=== PATIENT | female | born 1950 | race Caucasian/White ===

== ENCOUNTER → 2020-09-04 09:43 | Outpatient (BNVA) | payer MEDICARE, SELFPAY | PROVIDERS: PCP Internal Medicine; Referring Provider Internal Medicine; Visit Provider Internal Medicine Endocrinology, Diabetes & Metabolism | DX: R73.03 Prediabetes (principal); E66.9 Obesity, unspecified; M85.80 Other specified disorders of bone density and structure, unspecified site; E83.52 Hypercalcemia; E55.9 Vitamin D deficiency, unspecified; E78.5 Hyperlipidemia, unspecified; Z79.84 Long term (current) use of oral hypoglycemic drugs; Z79.899 Other long term (current) drug therapy | CPT/HCPCS: 99212 ==

== ENCOUNTER 2020-10-09 12:12 | Outpatient (REF) | payer BC, SELFPAY ==
[2020-10-09 15:11] LABS: Influenza A PCR NEGATIVE (Negative); Influenza B PCR NEGATIVE (Negative); Resp Syncy Virus RNA Qual PCR NEGATIVE (Negative); SARS COV2 PCR INHOUSE NEGATIVE (Negative)
== END 2020-10-09 12:13 | disposition home or self-care (01) ==
LOC: HO.LAB 12:12
PROVIDERS: Visit Provider Hospitalist
DX: Z20.828 Contact with and (suspected) exposure to other viral communicable diseases (principal)
CPT/HCPCS: 0241U

== ENCOUNTER 2021-02-03 08:39 | Outpatient (REF) | payer BC, SELFPAY ==
--- NOTE | ~2021-02-03 | XR_ITS ---
EXAMINATION: LEFT FINGER. CERVICAL SPINE. CLINICAL INFORMATION: Pain. COMPARISON: None TECHNIQUE: 3 views left second finger. 3 view cervical spine. FINDINGS: LEFT SECOND FINGER: There is loss of joint space with moderate periapical spurring PIP joint second digit and mild loss of joint space PIP joint first digit with dorsal calcification consistent with osteoarthritic changes. There is mild flexion deformity at the DIP joint. No acute fracture or lytic process seen. CERVICAL SPINE: There is mild straightening of cervical lordosis. The vertebral heights and alignment is normal. There is loss of C3-C4, C5-C6 and C6-C7 disc heights. There is moderate ventral spondylosis at the C3-C4, C4-C5 and C5-C6 disc levels. No acute fracture or dislocation seen. No lytic process. XR/XR cervical spine 3V IMPRESSION: Severe osteoarthritic changes DIP joint and mild osteoarthritic changes PIP joint second digit. No acute fracture or dislocation. Mild flexion deformity DIP joint.
--- NOTE | ~2021-02-03 | XR_ITS ---
EXAMINATION: LEFT FINGER. CERVICAL SPINE. CLINICAL INFORMATION: Pain. COMPARISON: None TECHNIQUE: 3 views left second finger. 3 view cervical spine. FINDINGS: LEFT SECOND FINGER: There is loss of joint space with moderate periapical spurring PIP joint second digit and mild loss of joint space PIP joint first digit with dorsal calcification consistent with osteoarthritic changes. There is mild flexion deformity at the DIP joint. No acute fracture or lytic process seen. CERVICAL SPINE: There is mild straightening of cervical lordosis. The vertebral heights and alignment is normal. There is loss of C3-C4, C5-C6 and C6-C7 disc heights. There is moderate ventral spondylosis at the C3-C4, C4-C5 and C5-C6 disc levels. No acute fracture or dislocation seen. No lytic process. XR/XR finger LT min 2V IMPRESSION: Severe osteoarthritic changes DIP joint and mild osteoarthritic changes PIP joint second digit. No acute fracture or dislocation. Mild flexion deformity DIP joint.
== END 2021-02-03 08:40 | disposition home or self-care (01) ==
LOC: HO.HMGCX 08:39
PROVIDERS: PCP Internal Medicine; Visit Provider Internal Medicine
DX: M85.80 Other specified disorders of bone density and structure, unspecified site (principal); M54.2 Cervicalgia; M79.645 Pain in left finger(s)
CPT/HCPCS: 72040; 73140

== ENCOUNTER 2021-05-12 09:24 | Outpatient (REF) | payer MEDICARE, SELFPAY ==
[2021-05-12 11:25] LABS: MANUAL DIFF FLAG NO
[2021-05-12 11:40] LABS: Estimated Average Glucose 131 mg/dL; Hemoglobin A1c % 6.2 %
[2021-05-12 12:00] LABS: Basophils Percent Auto 0.6 % (0-2); Eosinophils Absolute Auto 0.3 X10*3/uL (0.0-0.4); Hematocrit 41.2 % (37-47); Hemoglobin 13.7 g/dl (12.0-16.0); Imm Gran Abs Auto 0.01 X10*3/uL (0.00-0.03); Imm Gran Pct Auto 0.2 % (0.0-0.4); Lymphocytes Absolute Auto 1.9 X10*3/uL (1.2-4.9); Lymphocytes Percent Auto 34.7 % (20-40); Mean Corpuscular HGB Conc 33.3 g/dl (31.0-35.0); Mean Corpuscular Hemoglobin 29.7 pg (27.0-33.0); Mean Corpuscular Volume 89.4 fL (80-98); Mean Platelet Volume 9.5 fL (9.4-12.3); Monocytes Absolute Auto 0.4 X10*3/uL (0.1-1.2); Monocytes Percent Auto 7.3 % (2-11); Neutrophils Absolute Auto 2.8 X10*3/uL (2.0-8.3); Neutrophils Percent Auto 51.2 % (45-73); Platelet Count 328 X10*3/uL (160-400); Red Blood Count 4.61 X10*6/uL (4.20-5.50); Red Cell Distribution Width 13.2 % (11.0-16.0); White Blood Count 5.4 X10*3/uL (4.8-10.8)
[2021-05-12 12:21] LABS: Alanine Aminotransferase 17 U/L (0-31); Albumin Level 3.9 g/dL (3.5-5.0); Alkaline Phosphatase 81 U/L (39-117); Anion Gap 13 (12-20); Aspartate Amino Transferase 20 U/L (5-31); Bilirubin Total 0.4 mg/dL (0.0-1.0); Blood Urea Nitrogen 13 mg/dL (9-16); Calcium 10.2 mg/dL (8.4-10.2); Carbon Dioxide 28 mmol/L (22-29); Chloride 104 mmol/L (96-108); Cholesterol 134 mg/dL; Estimated Glomerular Filt Rate > 60; Glucose Random 95 mg/dL (60-115); HDL Cholesterol 37 mg/dL; LDL Cholesterol Calculated 68 mg/dl; Potassium 4.8 mmol/L (3.3-5.1); Sodium 140 mmol/L (135-145); Total Protein 6.9 g/dL (6.5-8.0); Triglycerides 145 mg/dL
[2021-05-12 12:34] LABS: Thyroid Stimulating Hormone 4.98 uIU/mL (0.32-4.0); Vitamin D 25-OH Total 47.8 ng/mL (>30)
[2021-05-12 12:49] LABS: Folate 4.9 ng/mL (> or = 4.0); Vitamin B12 1021 pg/mL (200-900)
== END 2021-05-12 09:25 | disposition home or self-care (01) ==
LOC: HO.HMGCLDS 09:24
PROVIDERS: PCP Internal Medicine; Visit Provider Internal Medicine
DX: E03.9 Hypothyroidism, unspecified (principal); R73.02 Impaired glucose tolerance (oral); E78.00 Pure hypercholesterolemia, unspecified; M85.89 Other specified disorders of bone density and structure, multiple sites
CPT/HCPCS: 36415; 80053; 80061; 82306; 82607; 82746; 83036; 84439; 84443; 85025

== ENCOUNTER 2021-09-02 13:09 | Outpatient (REF) | payer MEDICARE, SELFPAY ==
--- NOTE | ~2021-09-02 | MM_ITS ---
EXAMINATION: MM SCREENING DIGITAL BREAST TOMOSYNTHESIS, BILATERAL CLINICAL INFORMATION: Screening. Asymptomatic. The lifetime risk of breast cancer based on the Tyrer-Cuzick Model is 4.5%. COMPARISON: Mammography: 01/28/2019 and studies dating back to 12/02/2013. TECHNIQUE: Digital breast tomosynthesis is performed in both the craniocaudal and mediolateral oblique views along with computer-aided detection (CAD). Synthesized 2D images are generated from the tomosynthesis. FINDINGS: There are scattered areas of fibroglandular density (ACR BI-RADS breast composition Category b). There is a stable parenchymal pattern within the right breast without new abnormal dominant mass or suspicious grouping of microcalcifications. On mediolateral oblique projection along nipple line there is an irregular density which appears more posterior to a region of dense tissue that had been there. Recommended mediolateral oblique spot compression view as well as 90 degree mediolateral view left breast. MM/MM tomosynthesis screening BI IMPRESSION: Region of irregular density left breast for further evaluation as described above. ASSESSMENT: BI-RADS 0: Incomplete - Need Additional Imaging Evaluation RECOMMENDATION: 1. Additional views of the left breast. 2. Targeted ultrasound if warranted after review of the additional views. 3. Radiology department staff will contact the patient for additional imaging. This patient's information was entered into a reminder system with a target due date for their next mammogram.
== END 2021-09-02 13:10 | disposition home or self-care (01) ==
LOC: HO.MAMMO 13:09
PROVIDERS: PCP Internal Medicine; Visit Provider Internal Medicine
DX: Z12.31 Encounter for screening mammogram for malignant neoplasm of breast (principal)
CPT/HCPCS: 77063; 77067

== ENCOUNTER 2021-09-13 14:18 | Outpatient (REF) | payer MEDICARE, SELFPAY ==
--- NOTE | ~2021-09-13 | MM_ITS ---
EXAMINATION: MM DIAGNOSTIC DIGITAL BREAST TOMOSYNTHESIS, LEFT CLINICAL INFORMATION: Recall from screening for asymmetric density left MLO 2-D synthesized image along posterior nipple line within 5 cm of nipple. COMPARISON: Mammography: 09/02/2021, 01/28/2019 TECHNIQUE: Digital breast tomosynthesis is performed. 2D images are generated from the tomosynthesis. The following views are obtained: Spot MLO, standard ML. FINDINGS: There are scattered areas of fibroglandular density (ACR BI-RADS breast composition Category b). The additional views show no underlying mass or architectural abnormality or interval developing density in the area of recent imaging concern. The asymmetric density at screening on synthesized MLO view shows no correlate on either the screening CC projection or on the MLO tomography. Finding is consistent with summation artifact. Results are discussed with the patient at time of visit. MM/MM tomosynthesis added views L IMPRESSION: Additional views show no developing density or interval mass or architectural abnormality in the area of recent imaging concern. Finding on recent synthesized screening image is consistent with summation artifact. ASSESSMENT: BI-RADS 1: Negative RECOMMENDATION: Routine annual mammography screening. This patient's information was entered into a reminder system with a target due date for their next mammogram.
== END 2021-09-13 14:19 | disposition home or self-care (01) ==
LOC: HO.MAMMO 14:18
PROVIDERS: Visit Provider Internal Medicine
DX: R92.2 Inconclusive mammogram (principal)
CPT/HCPCS: 77061; 77065

== ENCOUNTER 2021-10-20 13:54 | Outpatient (REF) | payer MEDICARE, SELFPAY ==
[2021-10-20 17:50] LABS: Free T4 (Free Thyroxine) 1.36 ng/dL (0.71-1.85); Thyroid Stimulating Hormone 1.14 uIU/mL (0.32-4.0)
== END 2021-10-20 13:55 | disposition home or self-care (01) ==
LOC: HO.HMGCLDS 13:54
PROVIDERS: PCP Internal Medicine; Visit Provider Internal Medicine
DX: E03.9 Hypothyroidism, unspecified (principal)
CPT/HCPCS: 36415; 84439; 84443

== ENCOUNTER 2021-11-19 10:40 | Outpatient (REF) | payer MEDICARE, SELFPAY ==
--- NOTE | ~2021-11-19 | MM_ITS ---
EXAMINATION: BONE DENSITOMETRY CLINICAL INDICATION: Osteopenia. COMPARISON: Previous BD dated 09/10/2019 and baseline BD dated 12/27/2013. TECHNIQUE: Using a [employer] DXA System (software version: 13.1) manufactured by [employer], dual-energy x-ray absorptiometry was performed of the lumbar spine and left hip. The images are of good technical quality. Summary results are attached. FINDINGS: AP SPINE L1-L2 (excluding L3 and L4): The data of L1-L4 has been changed to exclude the L3 and L4 vertebral bodies, because significant degenerative change at these levels may cause overestimation of lumbar spine density. Current: BMD 1.207 g/cm2, Z-score 1.6, T-score 0.4, normal, 4.4% decrease from previous, 2.5% increase from baseline (<5% change is not significant). Prior: BMD 1.263 g/cm2. Baseline: BMD 1.178 g/cm2. LEFT FEMUR, NECK: Current: BMD 0.835 g/cm2, Z-score 0.0, T-score -1.5, osteopenia. Prior: BMD 0.852 g/cm2. Baseline: BMD 0.877 g/cm2. LEFT FEMUR, TOTAL: Current: BMD 1.075 g/cm2, Z-score 1.7, T-score 0.5, normal, 1.5% decrease from previous, 4.0% decrease from baseline (<5% change is not significant). Prior: BMD 1.091 g/cm2. Baseline: BMD 1.120 g/cm2. IDENTIFIED RISK FACTORS: Early menopause, family history (parent hip fracture), secondary osteoporosis. HISTORY OF FRACTURE: None listed. MEDICATIONS: Calcium, vitamin D. MM/XR DEXA axial skeleton IMPRESSION: 1. DIAGNOSIS: Osteopenia based on the lowest T-score value of -1.5 in the femoral neck applying World Health Organization criteria. 2. 10-YEAR FRACTURE RISK PREDICTION, FRAX: Major osteoporotic fracture (clinical spine, forearm, hip or shoulder) 15.0%. Hip fracture 3.8%. 3. Treatment Recommendations: NOF guidelines recommend consideration for treatment in postmenopausal women and men age 50 and older presenting with the following: -A hip or vertebral (clinical or morphometric) fracture. -T-score less than or equal to -2.5 at the femoral neck or spine after appropriate evaluation to exclude secondary causes. -Low bone mass at the hip or spine and a 10-year fracture probability by FRAX of greater than or equal to 3% for hip fracture or greater than or equal to 20% for major osteoporotic fracture based on the [place] adapted WHO algorithm. 4. Other Recommendations: All treatment decisions require clinical judgment and consideration of individual patient factors, including patient preferences, comorbidities, previous drug use, risk factors not captured in the FRAX model (e.g. frailty, falls, vitamin D deficiency, increased bone turnover, interval significant decline in bone density) and possible under or overestimation of fracture risk by FRAX. Additional medical evaluation for secondary cause of low bone mineral density may be appropriate. FUTURE SCAN RECOMMENDATION: People with diagnosed cases of osteoporosis or at high risk for fracture should have regular bone mineral density tests. For patients eligible for Medicare, routine testing is allowed once every 2 years. The testing frequency can be increased to one year for patients who have rapidly progressing disease, those who are receiving or discontinuing medical therapy to restore bone mass, or have additional risk factors.
== END 2021-11-19 10:41 | disposition home or self-care (01) ==
LOC: HO.MAMMO 10:40
PROVIDERS: Visit Provider Internal Medicine
DX: Z78.0 Asymptomatic menopausal state (principal); M85.89 Other specified disorders of bone density and structure, multiple sites
CPT/HCPCS: 77080

== ENCOUNTER 2022-03-18 10:57 | Outpatient (REF) | payer MEDICARE, SELFPAY ==
[2022-03-18 11:25] LABS: COVID-19 Test Positive (Negative)
== END 2022-03-18 10:58 | disposition home or self-care (01) ==
LOC: HO.LAB 10:57
PROVIDERS: Visit Provider Internal Medicine
DX: Z20.822 Contact with and (suspected) exposure to COVID-19 (principal)
CPT/HCPCS: 87635; C9803

== ENCOUNTER 2022-04-05 12:54 | Outpatient (REF) | payer MEDICARE, SELFPAY ==
[2022-04-05 13:38] LABS: COVID-19 Test Negative (Negative)
== END 2022-04-05 12:55 | disposition home or self-care (01) ==
LOC: HO.LAB 12:54
PROVIDERS: Visit Provider Internal Medicine
DX: Z20.822 Contact with and (suspected) exposure to COVID-19 (principal)
CPT/HCPCS: 87635; C9803

== ENCOUNTER 2022-04-22 08:50 | Outpatient (REF) | payer MEDICARE, SELFPAY ==
[2022-04-22 09:09] LABS: MANUAL DIFF FLAG NO
[2022-04-22 10:32] LABS: Basophils Percent Auto 0.7 % (0-2); Eosinophils Absolute Auto 0.3 X10*3/uL (0.0-0.4); Eosinophils Percent Auto 5.5 % (0-4); Hematocrit 40.1 % (37.0-47.0); Hemoglobin 13.3 g/dl (12.0-16.0); Imm Gran Abs Auto 0.02 X10*3/uL (0.00-0.03); Imm Gran Pct Auto 0.3 % (0.0-0.4); Lymphocytes Absolute Auto 1.6 X10*3/uL (1.2-4.9); Lymphocytes Percent Auto 27.6 % (20-40); Mean Corpuscular HGB Conc 33.2 g/dl (31.0-35.0); Mean Corpuscular Hemoglobin 29.7 pg (27.0-33.0); Mean Corpuscular Volume 89.5 fL (80.0-98.0); Mean Platelet Volume 9.6 fL (9.4-12.3); Monocytes Absolute Auto 0.6 X10*3/uL (0.1-1.2); Monocytes Percent Auto 9.7 % (2-11); Neutrophils Absolute Auto 3.3 x10*3/uL (2.0-8.3); Neutrophils Percent Auto 56.2 % (45-73); Platelet Count 358 X10*3/uL (160-400); Red Blood Count 4.48 X10*6/uL (4.20-5.50); Red Cell Distribution Width 13.3 % (11.0-16.0); White Blood Count 5.8 X10*3/uL (4.8-10.8)
[2022-04-22 10:36] LABS: Estimated Average Glucose 126 mg/dL
[2022-04-22 11:02] LABS: Alanine Aminotransferase 16 U/L (0-31); Alkaline Phosphatase 81 U/L (39-117); Anion Gap 11 (12-20); Aspartate Amino Transferase 19 U/L (5-31); Bilirubin Total 0.4 mg/dL (0.0-1.0); Blood Urea Nitrogen 15 mg/dL (9-16); Calcium 9.5 mg/dL (8.4-10.2); Carbon Dioxide 29 mmol/L (22-29); Chloride 104 mmol/L (96-108); Cholesterol 151 mg/dL; Estimated Glomerular Filt Rate > 60; Glucose Random 110 mg/dL (60-115); HDL Cholesterol 35 mg/dL; LDL Cholesterol Calculated 84 mg/dl; Potassium 4.9 mmol/L (3.3-5.1); Sodium 139 mmol/L (135-145); Triglycerides 163 mg/dL
[2022-04-22 11:27] LABS: Free T4 (Free Thyroxine) 1.22 ng/dL (0.71-1.85); Thyroid Stimulating Hormone 2.86 uIU/mL (0.32-4.0); Vitamin D 25-OH Total 49.2 ng/mL (>30)
[2022-04-22 11:31] LABS: Folate 6.6 ng/mL (> or = 4.0); Vitamin B12 1122 pg/mL (200-900)
== END 2022-04-22 08:51 | disposition home or self-care (01) ==
LOC: HO.LAB 08:50
PROVIDERS: PCP Internal Medicine; Visit Provider Internal Medicine
DX: E78.00 Pure hypercholesterolemia, unspecified (principal); R73.02 Impaired glucose tolerance (oral); M81.0 Age-related osteoporosis without current pathological fracture
CPT/HCPCS: 36415; 80053; 80061; 82306; 82607; 82746; 83036; 84439; 84443; 85025

== ENCOUNTER 2022-05-04 08:36 | Outpatient (REF) | payer MEDICARE, SELFPAY ==
--- NOTE | ~2022-05-04 | XR_ITS ---
EXAMINATION: XR CHEST CLINICAL INFORMATION: Cough. COMPARISON: Chest 12/23/2019 TECHNIQUE: 2 views of the chest were obtained. FINDINGS: The lungs are well-expanded and clear. Heart size and pulmonary vascularity is normal. There is moderate spondylosis dorsal spine. No lytic process. XR/XR chest 2V IMPRESSION: Unremarkable chest examination.
== END 2022-05-04 08:37 | disposition home or self-care (01) ==
LOC: HO.XRAY 08:36
PROVIDERS: PCP Internal Medicine; Visit Provider Internal Medicine
DX: R05.9 Cough, unspecified (principal)
CPT/HCPCS: 71046

== ENCOUNTER → 2022-05-10 10:36 | Outpatient (BNVA) | payer MEDICARE, SELFPAY | PROVIDERS: PCP Internal Medicine; Visit Provider Internal Medicine Endocrinology, Diabetes & Metabolism | DX: R73.02 Impaired glucose tolerance (oral) (principal); E66.9 Obesity, unspecified; Z68.32 Body mass index [BMI] 32.0-32.9, adult; Z79.84 Long term (current) use of oral hypoglycemic drugs | CPT/HCPCS: 99212 ==

== ENCOUNTER 2022-09-02 13:37 | Outpatient (REF) | payer MEDICARE, SELFPAY ==
--- NOTE | 2022-09-02 14:55 | PFT_ITS ---
Patient was referred for pulmonary function test. In spite of directions and repeated efforts, patient was not able to perform the pulmonary function test. MD MARK Cortes/ORALIA / [phone]
== END 2022-09-02 13:38 | disposition home or self-care (01) ==
LOC: HO.RESP 13:37
PROVIDERS: PCP Internal Medicine; Visit Provider Nurse Practitioner Family
DX: Z13.89 Encounter for screening for other disorder (principal)

== ENCOUNTER 2022-09-05 14:35 | Outpatient (REF) | payer MEDICARE, SELFPAY ==
--- NOTE | ~2022-09-05 | MM_ITS ---
EXAMINATION: MM SCREENING DIGITAL BREAST TOMOSYNTHESIS, BILATERAL CLINICAL INFORMATION: Screening. Asymptomatic. The lifetime risk of breast cancer based on the Tyrer-Cuzick Model is 4%. COMPARISON: Mammography: 09/13/2021, 08/13/2021, 01/28/2019, 01/24/2018 TECHNIQUE: Digital breast tomosynthesis is performed in both the craniocaudal and mediolateral oblique views along with computer-aided detection (CAD). Synthesized 2D images are generated from the tomosynthesis. FINDINGS: There are scattered areas of fibroglandular density (ACR BI-RADS breast composition Category b). There are no significant masses, abnormal calcifications, or other abnormalities. Parenchymal pattern is similar to prior studies and there is no developing density or interval architectural abnormality. There are scattered benign round and predominantly dermal calcifications again seen. The axilla and skin contours are unremarkable. MM/MM tomosynthesis screening BI IMPRESSION: No mammographic evidence of malignancy. ASSESSMENT: BI-RADS 2: Benign RECOMMENDATION: Routine annual mammography screening. This patient's information was entered into a reminder system with a target due date for their next mammogram.
== END 2022-09-05 14:36 | disposition home or self-care (01) ==
LOC: HO.MAMMO 14:35
PROVIDERS: Visit Provider Internal Medicine
DX: Z12.31 Encounter for screening mammogram for malignant neoplasm of breast (principal)
CPT/HCPCS: 77063; 77067

== ENCOUNTER 2022-09-21 09:59 | Emergency (ER) | payer MEDICARE, SELFPAY ==
[2022-09-21 10:12] VITALS: BP 164/74; BP 172/80; PULSE 73; PULSE 78; RESP 16; TEMP 36.8; O2SAT 98; BMI 33.9
--- NOTE | 2022-09-21 11:35 | ED_ITS ---
HPI - Fall General Chief Complaint: Fall Stated Complaint: FALL W/JUSTUS KNEE PAIN PER EMS Source: patient Mode of arrival: EMS Limitations: no limitations History of Present Illness HPI Narrative: 72-year-old female who presents emergency department for evaluation of a fall that occurred from a standing position. The patient states that she was at [facility] getting a cup coffee. She states she then suddenly fell landing on her knees. She denied any other injury. She states that when the paramedics arrived she was able to stand and walk to the [facility]. She is currently complaining and set pain in both of her knees which she states is mild in intensity. The patient denied being ill in any way prior to the fall. She states that she does have chronic rhinorrhea, cough and chest pain from a COVID-19 infection from March of 2022. She denied dysuria. She denied dark tarry stools or black stools. MD complaint: fall Onset (ago): hour(s) (30) Fall from: standing Fall witnessed: yes, by bystander Place fall occurred: other ([facility]) Loss of consciousness: none Prolonged down time: no Symptoms prior to fall: none Location of injury: other (Bilateral knees) Severity: moderate Quality: throbbing Associated symptoms (after fall): denies Related Data Home Medications Medication Instructions Recorded Confirmed lancets 30 gauge #100 ea 20 08/09/22 Previous Rx's Medication Instructions Recorded omeprazole 20 mg capsule,delayed 20 mg PO DAILY #90 caps 10/05/20 release OneTouch Ultra Blue Test Strip #100 ea 03/22/21 (blood sugar diagnostic) alprazolam 0.25 mg tablet 0.25 mg PO DAILY PRN anxiety 90 04/22/21 days #90 tabs fexofenadine 180 mg tablet 180 mg PO DAILY #90 tabs 04/22/21 (Milana Allergy) cholecalciferol (vitamin D3) 50 50 mcg PO DAILY #90 tabs 01/17/22 mcg (2,000 unit) tablet lancets 30 gauge (OneTouch Delica #100 ea 03/04/22 Lancets) blood sugar diagnostic (OneTouch #100 ea 04/25/22 Ultra Test strips) calcium carbonate 600 mg-vitamin 1 tab PO DAILY #90 tabs 05/02/22 D3 5 mcg (200 unit) tablet levothyroxine 125 mcg tablet 125 mcg PO QAM #90 tabs 05/02/22 (Euthyrox) atorvastatin 40 mg tablet 40 mg PO DAILY #90 tabs 06/28/22 metformin 500 mg tablet 500 mg PO BID #180 tabs 06/28/22 albuterol sulfate 90 mcg/actuation 2 puff inhalation Q4-6H PRN 08/19/22 aerosol inhaler (ProAir HFA) shortness of breath or wheezing #8.5 grams meloxicam 15 mg tablet 15 mg PO DAILY #90 tabs 08/30/22 benzonatate 100 mg capsule 100 mg PO BID PRN cough #20 caps 09/09/22 Allergies Allergy/AdvReac Type Severity Reaction Status Date / Time No Known Allergies Allergy Verified 08/09/22 09:00 [No Known Allergies*] Review of Systems Review of Systems: Yes all other systems are reviewed and are negative [facility] Past Medical History [facility] Narrative: Okay social history: The patient denies tobacco, alcohol and drug use. She states she lives home alone with her 2 cats, Keshav and Reece. Medical History Anxiety Barretts esophagus Finger pain, left Hiatal hernia Hypercholesterolemia Hypothyroidism Impaired glucose tolerance Nasal bone fracture Obesity (BMI 30-39.9) Osteopenia Urge incontinence Vitamin D deficiency Surgical History History of bladder surgery Hx of cholecystectomy Hx of foot surgery Family History Family History Father No problems noted. Mother No problems noted. Paternal Grandmother Diabetes mellitus Social History Social History Housing: Apartment Alcohol intake: never Patient Tobacco Use Status: Former Tobacco user Tobacco use type: Cigarette Years Smoked: quit 2019 Smoked in Last 30 Days: No e-Cigarette/Vaping Use: Never Used Second Hand Smoke Exposure: No Use of substances other than those prescribed or required for medical reasons: No Advance Directives: No service: No Current occupational status: disabled Cognitive needs: No Hearing needs: Yes (hearing aids) Vision needs: Yes (glasses ) Physical Exam Vital Signs: Vital Signs: Last Vital Signs Temp 98.2 F 09/21/22 10:12 Pulse 73 09/21/22 10:12 Resp 16 09/21/22 10:12 BP 164/74 H 09/21/22 10:12 Pulse Ox 98 09/21/22 10:12 O2 Del Method 09/21/22 10:12 BMI result Body Mass Index 33.9 Const: General: cooperative and no acute distress Orientation/consciousness: oriented to person and oriented to place Limitations: no limitations HEENT: Head: Yes normal to inspection, Yes normocephalic and Yes atraumatic Ears: external ears normal General nose exam: Normal external nose present Face and sinus: Yes normal facial exam Mouth: Normal oral and palatal mucosa present Throat: Yes posterior oropharynx normal Eyes: General: appearance normal, both eyes and all related structures Pupils: Equal, round and reactive pupils present Neck: Neck: Yes normal visual inspection, Yes no lymphadenopathy, Yes trachea midline and Yes supple Chest: Chest palpation & inspection: normal inspection of the chest and normal palpation of entire chest wall Resp: Effort & Inspection: normal respiratory effort and able to speak in complete sentences Auscultation: clear to auscultation bilaterally Cardio: Rate: regular rate Rhythm: regular rhythm Heart sounds: S1 normal heart sound present, S2 normal heart sound present and no murmurs GI: Inspection: Yes normal to inspection Palpation (GI): Soft to palpation, nontender and no guarding Auscultation: normal bowel sounds : General: Yes no CVA tenderness Back/Spine/Pelvis: Back: no CVA tenderness Skin: General skin exam: no rashes or lesions noted Neuro: General: oriented to person and oriented to place Cranial nerves: Yes CN's II-XII intact bilaterally and Yes Equal, round and reactive pupils present Cognition (Neuro): normal cognition Motor exam (neuro): 5/5 motor strength present throughout Extrem: Other: There is no significant ecchymosis or soft tissue swelling of her knees or lower extremities. She does have a very small abrasion to the right knee. She has full range of motion without limitations. Patient was able to stand and walk in the emergency department without assistance and with no significant pain. Psych: Appearance: grossly normal Speech and movement: Normal speech and movement present Affect: normal affect Attitude: cooperative Thought process: Normal thought process present Thought content: Normal thought content present Course Course Course Narrative: 72-year-old female who presents emergency department for evaluation of a fall that occurred a standing position. Patient landed on her knees and reported no other injury. On examination she has a small abrasion to her right knee and has full range of motion both her lower extremities. She was able to walk without any difficulty. Given these exam findings, I do not think that she needs x-rays at this time. Patient's right knee abrasion was cleaned and dressed with bacitracin and a Band-Aid. Patient was discharged home with printed and verbal instructions. Discharge Plan Discharge Clinical Impression: Fall Qualifiers: Encounter type: initial encounter Qualified Code(s): W19.XXXA - Unspecified fall, initial encounter Contusion of knee, left Qualifiers: Encounter type: initial encounter Qualified Code(s): S80.02XA - Contusion of left knee, initial encounter Contusion of knee, right Qualifiers: Encounter type: initial encounter Qualified Code(s): S80.01XA - Contusion of right knee, initial encounter Abrasion of knee, right Qualifiers: Encounter type: initial encounter Qualified Code(s): S80.211A - Abrasion, right knee, initial encounter Patient Disposition: Home, Self-Care Instructions: Abrasion (ED), Contusion in Adults (ED) Additional Instructions: Apply bacitracin twice a day to the abrasions/cut to your right knee. Do this for 1 week. Take Tylenol (acetaminophen) 500 mg pills, 2 pills every 4 to 6 hours as needed for pain. Follow-up with your doctor in 2 days. Please return to the emergency department if your symptoms get worse or if you develop any symptoms that are concerning to you. Prescriptions: No Action omeprazole 20 mg capsule,delayed release(DR/EC) 20 mg PO DAILY Qty: 90 2RF (DME) OneTouch Ultra Blue Test Strip Strip See Rx Instructions .ROUTE .MEDSUPPLY Qty: 100 5RF Rx Instructions: once a day cholecalciferol (vitamin D3) 50 mcg (2,000 unit) tablet 50 mcg PO DAILY Qty: 90 3RF (DME) lancets [OneTouch Delica Lancets] 30 gauge misc See Rx Instructions .Route Qty: 100 5RF Rx Instructions: Test blood sugar twice a day (DME) OneTouch Ultra Test Strip See Rx Instructions .Route Qty: 100 5RF Rx Instructions: tests 3X/day levothyroxine [Euthyrox] 125 mcg tablet 125 mcg PO QAM Qty: 90 2RF calcium carbonate-vitamin D3 600 mg-5 mcg (200 unit) tablet 1 tab PO DAILY Qty: 90 3RF atorvastatin 40 mg tablet 40 mg PO DAILY Qty: 90 2RF metformin 500 mg tablet 500 mg PO BID Qty: 180 2RF albuterol sulfate [ProAir HFA] 90 mcg/actuation HFA aerosol inhaler 2 puff inhalation Q4-6H PRN (Reason: shortness of breath or wheezing) Qty: 8.5 0RF meloxicam 15 mg tablet 15 mg PO DAILY Qty: 90 2RF benzonatate 100 mg capsule 100 mg PO BID PRN (Reason: cough) Qty: 20 0RF fexofenadine [Milana Allergy] 180 mg tablet 180 mg PO DAILY Qty: 90 3RF alprazolam 0.25 mg tablet 0.25 mg PO DAILY PRN (Reason: anxiety) 90 Days Qty: 90 1RF (DME) lancets 30 gauge misc See Rx Instructions .ROUTE .MEDSUPPLY Qty: 100 Rx Instructions: As directed
[2022-09-21] MEDS: Bacitracin Oint 14 GM TUBE 1 APPL TOPICAL (11:54)
[2022-09-21 12:03] VITALS: BP 153/72; PULSE 83; RESP 12; TEMP 37.1; O2SAT 98
== END 2022-09-21 12:11 | disposition home or self-care (01) ==
PROVIDERS: Emergency Provider Emergency Medicine Emergency Medical Services; PCP Internal Medicine
DX: S80.02XA Contusion of left knee, initial encounter (principal); S80.01XA Contusion of right knee, initial encounter; S80.211A Abrasion, right knee, initial encounter; W18.30XA Fall on same level, unspecified, initial encounter; Y93.89 Activity, other specified; Y92.29 Other specified public building as the place of occurrence of the external cause; Y99.9 Unspecified external cause status; Z87.891 Personal history of nicotine dependence
CPT/HCPCS: 99283; 99284

== ENCOUNTER 2022-12-30 10:00 | Outpatient (RCR) | payer MEDICARE, SELFPAY ==
--- NOTE | 2022-11-25 15:33 | MHC.PT.EP ---
[facility] Office [place] Office [place] Office [address] [phone] F: [phone] F: [phone] F: [phone] F: [phone] Physical Therapy Plan of Care Date of Evaluation: Date of Surgery: Diagnosis: unsteadiness on feet Assessment: Pt is a 72 y/o female referred to PT for eval and treat of unsteadiness on her feet which Pt reports has resulted in 3 falls in the past year secondary to decreased B LE strength, decreased balance, and gait abnormality. Pt is deemed an appropriate candidate to receive skilled PT services to address their physical impairments in order to improve their functional ability. Frequency and Duration: The patient will be seen 2x/ wk x 4 wks Short Term Goals: Initiate HEP. Pt will trial senior balance class at her [facility]; she is already engaged in exercise program there. Usp Goals: I with home program. Improve B knee extension MMT by at least 1/2 MMT; initial 4/5 decondition. Improve B hip abd MMT by at least 1/2 MMT: initial: 4/5 B. Improve DGI (dynamic gait index) by at least 4 points in order to demonstrate improved risk of falls. Treatment Plan: Modalities to reduce pain, spasms and effusion. Manual therapy to restore motion and function. Therapeutic exercise to improve strength and flexibility. Neuromuscular re-education for posture and balance. Therapeutic activities to return to functional activities of daily living. Electronically signed by: Cornelius Littlejohn PT. Please sign and return to therapist. Thank you for your referral.
--- NOTE | 2022-12-30 16:24 | MHC.PT.DC ---
[facility] [place] Office [place] Office [place] Office [address] [facility] [phone] F: [phone] F: [phone] F: [phone] F: [phone] Physical Therapy Discharge Report Diagnosis: unsteadiness on feet Date of Surgery: Date of Evaluation: 11/25/22 Date of Discharge: 12/30/22 Treatments to Date: 8 Cancellations to Date: No Shows to Date: Discharge Status: Achieved Goals Improved Function Independent with HEP Discharge Summary: Samara has been an active and motivated participant in her therapy in the clinic with inconsistent home program compliance. She has met her reasonable therapeutic goals and is I with a home program and is encouraged to continue exercise at the senior [facility] and consider the balance class. Electronically signed by: Cornelius Littlejohn PT. Please sign and return to therapist. Thank you for your referral.
== END 2022-12-30 16:23 | disposition home or self-care (01) ==
LOC: HO.PTCHIC 10:00
PROVIDERS: PCP Internal Medicine; Visit Provider Internal Medicine
DX: R26.81 Unsteadiness on feet (principal)
CPT/HCPCS: 97110; 97112; 97162

== ENCOUNTER 2023-01-11 13:39 | Outpatient (REF) | payer MEDICARE, SELFPAY ==
[2023-01-11 14:52] LABS: MANUAL DIFF FLAG NO
[2023-01-11 14:58] LABS: Basophils Percent Auto 0.4 % (0-2); Eosinophils Absolute Auto 0.5 X10*3/uL (0.0-0.4); Eosinophils Percent Auto 6.4 % (0-4); Hematocrit 38.9 % (37.0-47.0); Hemoglobin 12.9 g/dl (12.0-16.0); Imm Gran Abs Auto 0.03 X10*3/uL (0.00-0.03); Imm Gran Pct Auto 0.4 % (0.0-0.4); Lymphocytes Absolute Auto 2.3 X10*3/uL (1.2-4.9); Lymphocytes Percent Auto 33.1 % (20-40); Mean Corpuscular HGB Conc 33.2 g/dl (31.0-35.0); Mean Corpuscular Hemoglobin 30.5 pg (27.0-33.0); Mean Platelet Volume 9.2 fL (9.4-12.3); Monocytes Absolute Auto 0.6 X10*3/uL (0.1-1.2); Monocytes Percent Auto 8.8 % (2-11); Neutrophils Absolute Auto 3.6 x10*3/uL (2.0-8.3); Neutrophils Percent Auto 50.9 % (45-73); Platelet Count 332 X10*3/uL (160-400); Red Blood Count 4.23 X10*6/uL (4.20-5.50)
== END 2023-01-11 13:40 | disposition home or self-care (01) ==
LOC: HO.LAB 13:39
PROVIDERS: PCP Internal Medicine; Visit Provider Internal Medicine
DX: R05.3 Chronic cough (principal); J30.9 Allergic rhinitis, unspecified
CPT/HCPCS: 36415; 85025; 94010; 99202

== ENCOUNTER 2023-02-24 10:37 | Emergency (ER) | payer MEDICARE, SELFPAY ==
--- NOTE | ~2023-02-24 | XR_ITS ---
EXAMINATION: XR CHEST CLINICAL INFORMATION: Chest/epigastric pain COMPARISON: 05/04/2022 TECHNIQUE: Frontal view of the chest was obtained. FINDINGS: The lungs are well expanded. There is no focal consolidation, edema, or effusion. No pneumothorax. The cardiomediastinal silhouette is within normal limits. No acute osseous abnormality. XR/XR chest 1V IMPRESSION: No acute pulmonary disease.
[2023-02-24 10:39] VITALS: BP 163/72; PULSE 86; RESP 18; TEMP 36.7; O2SAT 98; BMI 32.1
--- NOTE | 2023-02-24 10:41 | ECG_ITS ---
Test Reason : cp Blood Pressure : / mmHG Vent. Rate : 072 BPM Atrial Rate : 072 BPM P-R Int : 182 ms QRS Dur : 076 ms QT Int : 376 ms P-R-T Axes : 045 -10 018 degrees QTc Int : 411 ms Sinus rhythm Premature atrial complexes Abnormal ECG No previous ECGs available Referred By: Generic ED Physician Electronically Signed By:NGOC PACK
[2023-02-24 11:12] LABS: MANUAL DIFF FLAG NO
[2023-02-24 11:13] LABS: Basophils Percent Auto 0.6 % (0-2); Eosinophils Absolute Auto 0.3 X10*3/uL (0.0-0.4); Eosinophils Percent Auto 5.1 % (0-4); Hematocrit 39.3 % (37.0-47.0); Hemoglobin 13.2 g/dl (12.0-16.0); Imm Gran Abs Auto 0.01 X10*3/uL (0.00-0.03); Imm Gran Pct Auto 0.2 % (0.0-0.4); Lymphocytes Absolute Auto 1.6 X10*3/uL (1.2-4.9); Lymphocytes Percent Auto 30.6 % (20-40); Mean Corpuscular HGB Conc 33.6 g/dl (31.0-35.0); Mean Corpuscular Volume 89.3 fL (80.0-98.0); Mean Platelet Volume 9.3 fL (9.4-12.3); Monocytes Absolute Auto 0.4 X10*3/uL (0.1-1.2); Monocytes Percent Auto 7.7 % (2-11); Neutrophils Percent Auto 55.8 % (45-73); Platelet Count 322 X10*3/uL (160-400); Red Cell Distribution Width 12.6 % (11.0-16.0); White Blood Count 5.3 X10*3/uL (4.8-10.8)
[2023-02-24 11:33] LABS: Alanine Aminotransferase 12 U/L (0-31); Albumin Level 3.9 g/dL (3.5-5.0); Alkaline Phosphatase 75 U/L (39-117); Anion Gap 11 (12-20); Aspartate Amino Transferase 15 U/L (5-31); Bilirubin Total 0.4 mg/dL (0.0-1.0); Blood Urea Nitrogen 12 mg/dL (9-16); Calcium 9.5 mg/dL (8.4-10.2); Carbon Dioxide 25 mmol/L (22-29); Chloride 108 mmol/L (96-108); Creatinine Clr Calc Pharmacy 56.9; Estimated Glomerular Filt Rate > 60; Glucose Random 117 mg/dL (60-115); Lipase 28 U/L (8-78); Potassium 4.2 mmol/L (3.3-5.1); Sodium 140 mmol/L (135-145); Total Protein 6.5 g/dL (6.5-8.0)
[2023-02-24 11:43] LABS: Troponin-I High Sensitivity 5.9 ng/L (<3.5-17.0)
[2023-02-24 13:54] VITALS: BP 150/70; PULSE 57; RESP 18; TEMP 36.4; O2SAT 97
--- NOTE | 2023-02-24 16:18 | ED.ABDPAIN ---
HPI - Abdominal Pain General Chief Complaint: Abdominal Pain Stated Complaint: Nausea Chest Discomfort Etc Time Seen by Provider: 02/24/23 16:17 Source: patient Mode of arrival: ambulatory Limitations: no limitations History of Present Illness HPI narrative: Patient is 72 years old status post cholecystectomy with history of Pinto's esophagus, anxiety hard of hearing comes here for epigastric pain radiating to mid chest for last 4 days no relation with food felt slightly nauseated no vomiting no diarrhea no shortness of breath no radiation of th pain with food no urinary complaints Related Data Home Medications Medication Instructions Recorded Confirmed lancets 30 gauge #100 ea 09/04/20 08/09/22 Previous Rx's Medication Instructions Recorded omeprazole 20 mg capsule,delayed 20 mg PO DAILY #90 caps 10/05/20 release OneTouch Ultra Blue Test Strip #100 ea 03/22/21 (blood sugar diagnostic) alprazolam 0.25 mg tablet 0.25 mg PO DAILY PRN anxiety 90 04/22/21 days #90 tabs fexofenadine 180 mg tablet 180 mg PO DAILY #90 tabs 04/22/21 (Milana Allergy) lancets 30 gauge (OneTouch Delica #100 ea 03/04/22 Lancets) blood sugar diagnostic (OneTouch #100 ea 04/25/22 Ultra Test strips) calcium carbonate 600 mg-vitamin 1 tab PO DAILY #90 tabs 05/02/22 D3 5 mcg (200 unit) tablet atorvastatin 40 mg tablet 40 mg PO DAILY #90 tabs 06/28/22 metformin 500 mg tablet 500 mg PO BID #180 tabs 06/28/22 albuterol sulfate 90 mcg/actuation 2 puff inhalation Q4-6H PRN 08/19/22 aerosol inhaler (ProAir HFA) shortness of breath or wheezing #8.5 grams meloxicam 15 mg tablet 15 mg PO DAILY #90 tabs 09/26/22 cholecalciferol (vitamin D3) 50 50 mcg PO DAILY #90 tabs 01/04/23 mcg (2,000 unit) tablet levothyroxine 125 mcg tablet 125 mcg PO QAM #90 tabs 01/04/23 (Euthyrox) montelukast 10 mg tablet 10 mg PO DAILY allergic Rhinitis 01/11/23 30 days #30 tabs sucralfate 1 gram tablet 1 g PO BID #60 tabs 02/24/23 Allergies Allergy/AdvReac Type Severity Reaction Status Date / Time No Known Allergies Allergy Verified 01/11/23 14:09 [No Known Allergies*] Review of Systems Review of Systems Yes all other systems are reviewed and are negative [facility] Past Medical History Medical History Allergic rhinitis Anxiety Barretts esophagus Finger pain, left Hiatal hernia Hypercholesterolemia Hypothyroidism Impaired glucose tolerance Nasal bone fracture Obesity (BMI 30-39.9) Osteopenia Urge incontinence Vitamin D deficiency Surgical History History of bladder surgery Hx of cholecystectomy Hx of foot surgery Family History Family History Father No problems noted. Mother No problems noted. Paternal Grandmother Diabetes mellitus Social History Social History Housing: Apartment Alcohol intake: never Patient Tobacco Use Status: Former Tobacco user Tobacco use type: Cigarette Years Smoked: 1982 e-Cigarette/Vaping Use: Never Used Second Hand Smoke Exposure: No Advance Directives: No Advance Directives Information Provided: Yes service: No Current occupational status: disabled Cognitive needs: No Hearing needs: Yes (hearing aids) Vision needs: Yes (glasses ) Physical Exam ED Vital Signs: Vital Signs - 24 hr 02/24/23 10:39 02/24/23 13:54 02/24/23 16:41 Temperature 98.0 F 97.6 F 98.1 F Pulse Rate 86 57 61 Respiratory Rate 18 18 18 Blood Pressure 163/72 H 150/70 H 105/69 Pulse Oximetry 98 97 94 Oxygen Delivery Method Room Air Room Air Room Air BMI result Body Mass Index 32.1 Appearance: Alert. Oriented X3. No acute distress. Eyes: PERRLA, No Nystagmus ENT: Pharynx normal. Oral Mucosa moist Neck: Normal inspection. Neck supple. CVS: Normal heart rate and rhythm. Pulses normal. Respiratory: No respiratory distress. Equal air entry bilateral, no wheezing/rales/rhonchi Abdomen: Soft mild epigastric tenderness. Bowel sounds are present, no mass palpable, no CVA tenderness Skin: Skin warm and dry. Normal skin color. Normal skin turgor. Extremities: No lower extremity edema. No calf tenderness Neuro: Oriented X 3. No motor deficit. Medical Decision Making Medical Decision Making [facility] Narrative: Patient with Pinto's esophagus with epigastric pain workup is negative status post cholecystectomy taking p.o. fluids will discharge patient home on sucralfate advised to continue on Prilosec Lab Data [facility] Lab Attestation statement: I reviewed the patient's lab results. 02/24/23 11:00 02/24/23 11:00 Labs: Lab Results 02/24/23 02/24/23 02/24/23 Range/Units 11:00 11:00 11:00 WBC 5.3 (4.8-10.8) X10*3/uL RBC 4.40 (4.20-5.50) X10*6/uL Hgb 13.2 (12.0-16.0) g/dl Hct 39.3 (37.0-47.0) % MCV 89.3 (80.0-98.0) fL MCH 30.0 (27.0-33.0) pg MCHC 33.6 (31.0-35.0) g/dl RDW 12.6 (11.0-16.0) % Plt Count 322 (160-400) X10*3/uL MPV 9.3 L (9.4-12.3) fL Immature Gran % (Auto) 0.2 (0.0-0.4) % Neut % (Auto) 55.8 (45-73) % Lymph % (Auto) 30.6 (20-40) % Cam[place] % (Auto) 7.7 (2-11) % Eos % (Auto) 5.1 H (0-4) % Baso % (Auto) 0.6 (0-2) % Lymph # (Auto) 1.6 (1.2-4.9) X10*3/uL [place] # (Auto) 0.4 (0.1-1.2) X10*3/uL Eos # (Auto) 0.3 (0.0-0.4) X10*3/uL Baso # (Auto) 0.0 (0.0-0.2) X10*3/uL Abs Immat Gran (auto) 0.01 (0.00-0.03) X10*3/uL Absolute Neuts (auto) 3.0 (2.0-8.3) x10*3/uL Absolute Nucleated RBC 0.000 (0.0-0.012) X10*3/uL Nucleated RBC % (auto) 0.0 (0.0-0.2) /100WBC Sodium 140 (135-145) mmol/L Potassium 4.2 (3.3-5.1) mmol/L Chloride 108 (96-108) mmol/L Carbon Dioxide 25 (22-29) mmol/L Anion Gap 11 L (12-20) BUN 12 (9-16) mg/dL Creatinine 0.84 (0.5-1.4) mg/dL Estim Creat Clear Calc 56.9 Estimated GFR > 60 Random Glucose 117 H (60-115) mg/dL Calcium 9.5 (8.4-10.2) mg/dL Total Bilirubin 0.4 (0.0-1.0) mg/dL AST 15 (5-31) U/L ALT 12 (0-31) U/L Alkaline Phosphatase 75 (39-117) U/L Troponin I High Sens 5.9 (<3.5-17.0) ng/L Total Protein 6.5 (6.5-8.0) g/dL Albumin 3.9 (3.5-5.0) g/dL Lipase 28 (8-78) U/L Urine Color Urine Appearance Urine pH (5.0-9.0) Ur Specific Sabael (1.005-1.025) Urine Protein (Neg-Trace) mg/dL Urine Glucose (UA) (Negative) mg/dL Urine Ketones (Negative) mg/dL Urine Blood (Negative) Urine Nitrite (Negative) Ur Leukocyte Esterase (Negative) 02/24/23 Range/Units 17:25 WBC (4.8-10.8) X10*3/uL RBC (4.20-5.50) X10*6/uL Hgb (12.0-16.0) g/dl Hct (37.0-47.0) % MCV (80.0-98.0) fL MCH (27.0-33.0) pg MCHC (31.0-35.0) g/dl RDW (11.0-16.0) % Plt Count (160-400) X10*3/uL MPV (9.4-12.3) fL Immature Gran % (Auto) (0.0-0.4) % Neut % (Auto) (45-73) % Lymph % (Auto) (20-40) % Cam[place] % (Auto) (2-11) % Eos % (Auto) (0-4) % Baso % (Auto) (0-2) % Lymph # (Auto) (1.2-4.9) X10*3/uL [place] # (Auto) (0.1-1.2) X10*3/uL Eos # (Auto) (0.0-0.4) X10*3/uL Baso # (Auto) (0.0-0.2) X10*3/uL Abs Immat Gran (auto) (0.00-0.03) X10*3/uL Absolute Neuts (auto) (2.0-8.3) x10*3/uL Absolute Nucleated RBC (0.0-0.012) X10*3/uL Nucleated RBC % (auto) (0.0-0.2) /100WBC Sodium (135-145) mmol/L Potassium (3.3-5.1) mmol/L Chloride (96-108) mmol/L Carbon Dioxide (22-29) mmol/L Anion Gap (12-20) BUN (9-16) mg/dL Creatinine (0.5-1.4) mg/dL Estim Creat Clear Calc Estimated GFR Random Glucose (60-115) mg/dL Calcium (8.4-10.2) mg/dL Total Bilirubin (0.0-1.0) mg/dL AST (5-31) U/L ALT (0-31) U/L Alkaline Phosphatase (39-117) U/L Troponin I High Sens (<3.5-17.0) ng/L Total Protein (6.5-8.0) g/dL Albumin (3.5-5.0) g/dL Lipase (8-78) U/L Urine Color Yellow Urine Appearance Clear Urine pH 5.5 (5.0-9.0) Ur Specific Sabael 1.010 (1.005-1.025) Urine Protein Negative (Neg-Trace) mg/dL Urine Glucose (UA) Negative (Negative) mg/dL Urine Ketones Negative (Negative) mg/dL Urine Blood Negative (Negative) Urine Nitrite Negative (Negative) Ur Leukocyte Esterase Negative (Negative) Medications Administered Discontinued Medications Generic Name Dose Route Start Last Admin Trade Name Freq PRN Reason Stop Dose Admin Al Hydroxide/Mg Hydroxide 30 ml 02/24/23 16:51 02/24/23 17:16 Magnesium Hydrox/Alum Hydrox 30 Ml Oral.Susp PO 02/24/23 16:52 30 ml ONCE ONE Administration Discharge Plan Discharge Clinical Impression: Chronic gastritis Patient Disposition: Home, Self-Care Instructions: Gastritis (ED) Additional Instructions: Avoid fried or spicy food Continue your omeprazole Have small meals with water Sucralfate 1 tablet 1/2 hour before meals Follow with PCP Prescriptions: New sucralfate 1 gram tablet 1 g PO BID Qty: 60 0RF No Action omeprazole 20 mg capsule,delayed release(DR/EC) 20 mg PO DAILY Qty: 90 2RF (DME) OneTouch Ultra Blue Test Strip Strip See Rx Instructions .ROUTE .MEDSUPPLY Qty: 100 5RF Rx Instructions: once a day (DME) lancets [OneTouch Delica Lancets] 30 gauge misc See Rx Instructions .Route Qty: 100 5RF Rx Instructions: Test blood sugar twice a day (DME) OneTouch Ultra Test Strip See Rx Instructions .Route Qty: 100 5RF Rx Instructions: tests 3X/day calcium carbonate-vitamin D3 600 mg-5 mcg (200 unit) tablet 1 tab PO DAILY Qty: 90 3RF atorvastatin 40 mg tablet 40 mg PO DAILY Qty: 90 2RF metformin 500 mg tablet 500 mg PO BID Qty: 180 2RF albuterol sulfate [ProAir HFA] 90 mcg/actuation HFA aerosol inhaler 2 puff inhalation Q4-6H PRN (Reason: shortness of breath or wheezing) Qty: 8.5 0RF meloxicam 15 mg tablet 15 mg PO DAILY Qty: 90 2RF levothyroxine [Euthyrox] 125 mcg tablet 125 mcg PO QAM Qty: 90 2RF cholecalciferol (vitamin D3) 50 mcg (2,000 unit) tablet 50 mcg PO DAILY Qty: 90 3RF fexofenadine [Milana Allergy] 180 mg tablet 180 mg PO DAILY Qty: 90 3RF alprazolam 0.25 mg tablet 0.25 mg PO DAILY PRN (Reason: anxiety) 90 Days Qty: 90 1RF (DME) lancets 30 gauge misc See Rx Instructions .ROUTE .MEDSUPPLY Qty: 100 Rx Instructions: As directed montelukast 10 mg tablet 10 mg PO DAILY 30 Days Qty: 30 3RF
[2023-02-24 16:41] VITALS: BP 105/69; PULSE 61; RESP 18; TEMP 36.7; O2SAT 94
[2023-02-24] MEDS: Magnesium Hydrox/Alum Hydrox 30 ML ORAL.SUSP PO (17:16)
[2023-02-24 17:37] LABS: Appearance Urine Clear; Color Urine Yellow; Glucose Urine UA Negative (Negative); Leukocyte Esterase Urine Negative (Negative); Nitrite Urine Negative (Negative); PH 5.5 (5.0-9.0); Urine Blood Negative (Negative); Urine Ketones Negative (Negative); Urine Protein Negative (Neg-Trace)
== END 2023-02-24 19:01 | disposition home or self-care (01) ==
PROVIDERS: Emergency Provider Internal Medicine; PCP Internal Medicine
DX: K29.70 Gastritis, unspecified, without bleeding (principal); R07.89 Other chest pain; Z87.891 Personal history of nicotine dependence; Z79.899 Other long term (current) drug therapy
CPT/HCPCS: 36415; 71045; 80053; 81003; 83690; 84484; 85025; 93005; 99283; 99284

== ENCOUNTER → 2023-02-28 14:03 | Outpatient (BNVA) | payer MEDICARE, SELFPAY | PROVIDERS: PCP Internal Medicine; Visit Provider Internal Medicine | DX: R05.3 Chronic cough (principal); J30.9 Allergic rhinitis, unspecified | CPT/HCPCS: 99212 ==

== ENCOUNTER 2023-08-04 12:09 | Outpatient (AMB) | payer MEDICARE, SELFPAY ==
[2023-08-04 12:28] VITALS: BP 136/72; PULSE 79; O2SAT 97; BMI 33.6
--- NOTE | 2023-08-04 12:28 | A.OFFPC_ITS ---
Vital Signs 08/04/23 12:28 Height 5 ft 1 in Weight 178 lb BMI 33.6 BP 136/72 Blood Pressure Location Lt brachial Position Sitting Pulse 79 Pulse Source Pulse Oximeter Pulse Oximetry (%) 97 Oxygen Delivery Method Room Air Intake Visit Reasons: IGT Allergies No Known Allergies [No Known Allergies*] Allergy (Verified 08/04/23 12:28) Medication List - Last Reconciled 08/04/23 by Shauna Rodriguez MD albuterol sulfate 90 mcg/actuation (ProAir HFA) 2 puffs inhalation Q4-6H PRN alprazolam 0.25 mg PO DAILY PRN 90 days atorvastatin 40 mg PO DAILY blood sugar diagnostic (OneTouch Ultra Test strips) tests 3X/day calcium carbonate-vitamin D3 600 mg-5 mcg (200 unit) 1 tab PO DAILY cholecalciferol (vitamin D3) 50 mcg PO DAILY fexofenadine (Milana Allergy) 180 mg PO DAILY lancets As directed lancets ([employer]Touch Delica Lancets) Test blood sugar twice a day levothyroxine (Euthyrox) 125 mcg PO QAM meloxicam 15 mg PO DAILY metformin 500 mg PO BID montelukast 10 mg PO DAILY omeprazole 20 mg PO DAILY OneTouch Ultra Blue Test Strip (blood sugar diagnostic) once a day NS sucralfate 1 g PO BID Tobacco use date assessed: 04/14/23 Fall risk assessment: No Falls in past year Last assessed Fall Risk: 08/04/23 Dental Screening Dental Screen Date: 08/04/23 Did you have a dental visit in the last 12 months?: No Did you have a dental problem in the last 6 months where you did not have access to dental care?: No Was dental information given to patient?: No HPI IGT HPI Details 73-year-old obese female with Pinto's esophagus hypercholesterolemia hypothyroidism impaired glucose tolerance coming in for follow-up. Last seen in April 2023. Up-to-date with colonoscopy no more EGD. Mammogram due this August. Bone density is up-to-date. [facility] has cataracts [facility] Medical History (Updated 08/04/23 @ 13:16 by Shauna Rodriguez MD) Allergic rhinitis Chronic cough Depression Breast density Breast cancer screening by mammogram Cough Finger pain, left Nasal bone fracture Barretts esophagus Hiatal hernia Urge incontinence Anxiety Hypercholesterolemia Hypothyroidism Impaired glucose tolerance Obesity (BMI 30-39.9) Vitamin D deficiency Osteopenia Surgical History Hx of foot surgery History of bladder surgery Hx of cholecystectomy Family History (Updated 04/14/23 @ 14:48 by Natasha Mendoza CMA) Father No problems noted. Mother No problems noted. Paternal Grandmother Diabetes mellitus Social History Housing: Apartment Alcohol intake: never Patient Tobacco Use Status: Former Tobacco user Tobacco use type: Cigarette Years Smoked: quit 1982 e-Cigarette/Vaping Use: Never Used Second Hand Smoke Exposure: No service: No Current occupational status: disabled Cognitive needs: No Hearing needs: Yes (hearing aids) Vision needs: Yes (glasses ) Questionnaire PHQ-9 Over the last 2 weeks, how often have you been bothered by any of the following problems? 1. Little interest or pleasure in doing things: more than half the days 2. Feeling down, depressed, or hopeless: more than half the days 3. Trouble falling or staying asleep, or sleeping too much: nearly every day 4. Feeling tired or having little energy: nearly every day 5. Poor appetite or overeating: not at all 6. Feeling bad about yourself - or that you are a failure or have let yourself or your family down: nearly every day 7. Trouble concentrating on things, such as reading the newspaper or watching television: more than half the days 8. Moving or speaking so slowly that other people could have noticed. Or the opposite - being so fidgety or restless that you have been moving around a lot more than usual: several days 9. Thoughts that you would be better off or of hurting yourself in some way: not at all Total score: 16 Depression Screening Interpretation: Positive Depression Screening Follow-up: Community Mental Health Worker F/U Source: Developed by Drs. Mor Miller, Samara Stack, Newton oLgan and colleagues, with an educational adriane from [employer]. Thrive Questionnaire Date Thrive assessed: 04/14/23 AUDIT C Alcohol Use Questionnaire (AUDIT-C) 1. How often do you have a drink containing alcohol?: Never 2. How many drinks containing alcohol do you have on a typical day when you are drinking?: 1 or 2 (0) 3. How often do you have six or more drinks on one occasion?: Never Total Score: 0 Score Reviewed/Action Taken: No THUY-7 AMB Questionnaire THUY-7 Date THUY - 7 assessed: 04/14/23 Source: Developed by Drs. Mor Miller, Samara Stack, Newton Logan and colleagues, with an educational adriane from [employer]. Physical exam (Primary Care) Vital Signs: Last Vital Signs Pulse 79 08/04/23 12:28 BP 136/72 08/04/23 12:28 Pulse Ox 97 08/04/23 12:28 Oxygen Delivery Method Room Air 08/04/23 12:28 BMI result Body Mass Index 33.6 Tobacco/Smoking Status: Tobacco use Status Tobacco use date assessed 04/14/23 08/04/23 12:34 Patient Tobacco Use Status Former Tobacco user 08/04/23 12:34 Tobacco use type Cigarette 08/04/23 12:34 e-Cigarette/Vaping Use Never Used 08/04/23 12:34 PHQ-9: PHQ-9 Score PHQ-9: Total score 16 08/04/23 12:43 Depression Screening Interpretation: Positive Depression Screening Follow-up: Community Mental Health Worker F/U Thrive Assessment: Date of Thrive Assessment Date Thrive assessed 04/14/23 08/04/23 12:34 Const General: alert; No acute distress Eyes Conjunctivae: conjunctivae normal Resp Auscultation: clear to auscultation bilaterally Cardio Rate: regular rate Rhythm: regular rhythm GI Inspection: Yes normal to inspection Extrem General: Yes edema Results AMB Hemoglobin A1c AMB Hemoglobin A1c 5.9 % Last Edit by Natasha Mendoza CMA on 08/04/23 12 :44 Results Reviewed Results Reviewed: Laboratory Last Values Hgb A1c (Clinic) 5.9 % (4.0-6.0) 08/04/23 12:44 Assessment and Plan Assessment & Plan (1) Obesity (BMI 30-39.9): Code(s): E66.9 - Obesity, unspecified Plan: Diet and exercise (2) Impaired glucose tolerance: Code(s): R73.02 - Impaired glucose tolerance (oral) Plan: Decrease the amount of carbohydrate intake, pasta, bread, rice and potatoes are all sugar and that is aside from all the sweet stuff, remember that fruits are good but they are Sweet also. Patient has been placed by Endocrinology with metformin 500 mg twice a day (3) Hypothyroidism: Code(s): E03.9 - Hypothyroidism, unspecified Qualifiers: Hypothyroidism type: acquired Qualified Code(s): E03.9 - Hypothyroidism, unspecified Plan: Continue with thyroid medication need blood work (4) Hypercholesterolemia: Code(s): E78.00 - Pure hypercholesterolemia, unspecified Plan: Avoid fried foods, chicken skin, eggs, butter margarine, pastries and meat. Be it pork or beef they have a lot of cholesterol LDL goal of less than 100 and triglyceride of less than 150. Patient on atorvastatin 40 mg once a day (5) Barretts esophagus: Code(s): K22.70 - 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 Qualifiers: Pinto's esophagus type: without dysplasia Qualified Code(s): K22.70 - 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 Plan: Avoid the foods that causes that usually spicy foods, tomato products, juices, coffee, soda and foods that your sensitive to. After eating do not lie down, allow 3-4 hours before in lie down. And keep the head of bed above 30 degrees to avoid the acid from going up. Continue with omeprazole 20 mg once a day (6) Cataract: Code(s): H26.9 - Unspecified cataract Plan: patient follow up with [facility] Orders: Orders AMB Hemoglobin A1c Today Z13.9 - Encounter for screening, unspecified ECG 12 lead EKG Today E03.9 - Hypothyroidism, unspecified Coding Level of Care Code Tele Est Pt Level 4 (30970) Diagnoses Obesity (BMI 30-39.9) E66.9 Impaired glucose tolerance R73.02 Acquired hypothyroidism E03.9 Hypothyroidism type: acquired Hypercholesterolemia E78.00 Ipnto's esophagus without dysplasia K22.70 Pinto's esophagus type: without dysplasia Cataract H26.9 Additional Codes PHQ-9 - 50401 - PHQ-9 Billing: ([id number])
== END 2023-08-04 13:22 | disposition home or self-care (01) ==
PROVIDERS: PCP Internal Medicine; Visit Provider Internal Medicine
DX: R73.02 Impaired glucose tolerance (oral) (principal); E66.9 Obesity, unspecified; Z68.36 Body mass index [BMI] 36.0-36.9, adult; E78.00 Pure hypercholesterolemia, unspecified; E03.9 Hypothyroidism, unspecified; H26.9 Unspecified cataract; K22.70 Barrett's esophagus without dysplasia
CPT/HCPCS: 83036; 99214

== ENCOUNTER 2023-08-16 13:07 | Outpatient (REF) | payer MEDICARE, SELFPAY ==
--- NOTE | 2023-08-16 13:18 | ECG_ITS ---
Test Reason : hypothyroidism Blood Pressure : / mmHG Vent. Rate : 077 BPM Atrial Rate : 077 BPM P-R Int : 182 ms QRS Dur : 084 ms QT Int : 356 ms P-R-T Axes : 052 017 053 degrees QTc Int : 402 ms Sinus rhythm with Premature atrial complexes Otherwise normal ECG When compared with ECG of 24-FEB-2023 11:02, No significant change was found Referred By: Shauna Rodriguez Electronically Signed By:ANTON MOELLER MD
[2023-08-16 14:02] LABS: Estimated Average Glucose 128 mg/dL; Hemoglobin A1C 125.9676 umol/L; Hemoglobin A1c % 6.1 % (<6.0)
[2023-08-16 14:17] LABS: Alanine Aminotransferase 12 U/L (0-31); Albumin Level 3.9 g/dL (3.5-5.0); Alkaline Phosphatase 78 U/L (39-117); Anion Gap 11 (12-20); Aspartate Amino Transferase 20 U/L (5-31); Bilirubin Total 0.2 mg/dL (0.0-1.0); Blood Urea Nitrogen 13 mg/dL (9-16); Calcium 10.1 mg/dL (8.4-10.2); Carbon Dioxide 26 mmol/L (22-29); Chloride 105 mmol/L (96-108); Cholesterol 131 mg/dL (<200); Estimated Glomerular Filt Rate > 60; Glucose Random 114 mg/dL (60-115); HDL Cholesterol 38 mg/dL (>40); LDL Cholesterol Calculated 57 mg/dL (<100); Potassium 3.8 mmol/L (3.3-5.1); Sodium 138 mmol/L (135-145); Total Protein 7.1 g/dL (6.5-8.0); Triglycerides 182 mg/dL (<150)
[2023-08-16 14:32] LABS: Free T4 (Free Thyroxine) 0.96 ng/dL (0.71-1.85); Thyroid Stimulating Hormone 9.68 uIU/mL (0.32-4.0); Vitamin D 25-OH Total 55.7 ng/mL (>30)
== END 2023-08-16 13:08 | disposition home or self-care (01) ==
LOC: HO.LAB 13:07
PROVIDERS: PCP Internal Medicine; Visit Provider Internal Medicine
DX: E03.9 Hypothyroidism, unspecified (principal); E78.00 Pure hypercholesterolemia, unspecified; R73.02 Impaired glucose tolerance (oral); M85.89 Other specified disorders of bone density and structure, multiple sites
CPT/HCPCS: 36415; 80053; 80061; 82306; 82607; 82746; 83036; 84439; 84443; 85025; 93005

== ENCOUNTER 2023-08-22 13:36 | Outpatient (AMB) | payer MEDICARE, SELFPAY ==
[2023-08-22 13:37] VITALS: BP 142/78; PULSE 52; O2SAT 98; BMI 33.6
--- NOTE | 2023-08-22 13:39 | AM.OFFVISMDC ---
Intake Vital Signs 08/22/23 13:37 Height 5 ft 1 in Weight 178 lb BMI 33.6 BP 142/78 H Blood Pressure Location Lt brachial Position Sitting Pulse 52 Pulse Source Pulse Oximeter Pulse Oximetry (%) 98 Oxygen Delivery Method Room Air Intake Visit Reasons: AWV [id number] Allergies No Known Allergies [No Known Allergies*] Allergy (Verified 08/22/23 13:38) Medication List - Last Reconciled 08/22/23 by Shauna Rodriguez MD albuterol sulfate 90 mcg/actuation (ProAir HFA) 2 puffs inhalation Q4-6H PRN alprazolam 0.25 mg PO DAILY PRN 90 days atorvastatin 40 mg PO DAILY blood sugar diagnostic ([employer] MedicalTouch Ultra Test strips) tests 3X/day calcium carbonate-vitamin D3 600 mg-5 mcg (200 unit) 1 tab PO DAILY cholecalciferol (vitamin D3) 50 mcg PO DAILY fexofenadine (Milana Allergy) 180 mg PO DAILY lancets As directed lancets ([employer] Delica Lancets) Test blood sugar twice a day levothyroxine 137 mcg PO QAM meloxicam 15 mg PO DAILY metformin 500 mg PO BID montelukast 10 mg PO DAILY omeprazole 20 mg PO DAILY OneTouch Ultra Blue Test Strip (blood sugar diagnostic) once a day NS sucralfate 1 g PO BID HPI AWV G0438 HPI Details 73-year-old obese female with impaired glucose tolerance hypothyroidism hypercholesterolemia Pinto's esophagus coming in for an annual well visit. Patient was just seen 08/04/2023. Patient has colonoscopy scheduled for 2025, mammogram due this month bone density up-to-date. BP at home is good. chest pain on nervous, states gets chest pain, no sob, PFSH Medical History (Updated 08/22/23 @ 14:32 by Shauna Rodriguez MD) Depression Breast cancer screening by mammogram Allergic rhinitis Chronic cough Breast density Cough Finger pain, left Nasal bone fracture Barretts esophagus Hiatal hernia Urge incontinence Anxiety Hypercholesterolemia Hypothyroidism Impaired glucose tolerance Obesity (BMI 30-39.9) Vitamin D deficiency Osteopenia Surgical History Hx of foot surgery History of bladder surgery Hx of cholecystectomy Family History Father No problems noted. Mother No problems noted. Paternal Grandmother Diabetes mellitus Social History Housing: Apartment Alcohol intake: never Patient Tobacco Use Status: Former Tobacco user Tobacco use type: Cigarette Years Smoked: quit 1982 e-Cigarette/Vaping Use: Never Used Second Hand Smoke Exposure: No service: No Current occupational status: disabled Cognitive needs: No Hearing needs: Yes (hearing aids) Vision needs: Yes (glasses ) Review of Systems Const Denies poor appetite and Denies weakness Eyes Denies no additional complaints ENT Reports Normal hearing present, Denies dizziness, Denies nasal congestion, Denies tinnitus and Denies sore throat Card Denies chest pain, Denies syncope, Denies rapid heart rate and Denies dyspnea Resp Denies cough and Denies dyspnea GI Denies change in stool character, Reports constipation, Denies diarrhea, Denies nausea and Denies vomiting Denies urinary frequency, Denies difficulty voiding and Denies dysuria Neuro Reports Normal hearing present, Denies confusion, Denies dizziness, Denies syncope and Denies weakness Psych Denies confusion Physical Exam Vital Signs: Last Vital Signs Pulse 52 08/22/23 13:37 BP 142/78 H 08/22/23 13:37 Pulse Ox 98 08/22/23 13:37 Oxygen Delivery Method Room Air 08/22/23 13:37 BMI result Body Mass Index 33.6 Const General: No confusion Orientation/consciousness: No confusion HEENT Head: Yes normocephalic Ears: external ears normal and TM's normal bilaterally Face and sinus: Yes normal facial exam Mouth: moist mucous membranes Throat: Yes tonsils normal Eyes Conjunctivae: conjunctivae normal Pupils: Equal, round and reactive pupils present and Pupil accommodation reflex normal Direct Ophthalmoscopy: normal light reflex Neck Neck: No lymphadenopathy Thyroid: Thyroid normal Chest Chest palpation & inspection: normal inspection of the chest Resp Effort & Inspection: normal respiratory effort and no audible wheezes Auscultation: clear to auscultation bilaterally, no crackles, no wheezes and lung sounds not diminished Cardio Rate: regular rate Rhythm: regular rhythm Peripheral pulses: radial pulses present and dorsalis pedis present GI Other: guaiac neg Palpation (GI): no masses Auscultation: normal bowel sounds and normoactive bowel sounds Skin General skin exam: no rashes or lesions noted Rashes: no rashes Neuro General: No confusion Cranial nerves: Yes Equal, round and reactive pupils present and Yes Normal hearing present Cognition (Neuro): normal cognition Gait exam (Neuro): Normal gait present Motor exam (neuro): 5/5 motor strength present throughout Deep tendon reflexes (DTR's): Right brachioradialis reflex intensity grade: 2+, Left brachioradialis reflex intensity grade: 2+, Right patellar reflex intensity grade: 2+ and Left patellar reflex intensity grade: 2+ Extrem General: No edema Office Procedures Flu Questionnaire Does the patient have a severe egg allergy?: No Does the patient have severe life threatening allergies?: No Does the patient have a fever or illness today?: No Has the patient ever had Guillain-B[place] Syndrome?: No Has the patient ever had any past reaction to a flu shot?: No Immunizations flu vacc [id number] 6mos up(PF) 60 mcg(15 mcgx4)/0.5 mL IM syringe Performing Provider: Shauna Rodriguez MD Performing Location: [facility] Administered by: Natasha Mendoza CMA on 08/22/23 14:53 Dose Route Admin Location Dispensed Lot Number Expiration Date NDC Offensive Coordinator 0.5 mL IM Left Deltoid 0.5 mL [id number] 05/05/24 31511-104-46 [employer] VIS Given Date VIS Provided VIS Publication Date 08/22/23 Single Vaccine 21 Eligibility Eligibility Date Funding Source Not [facility] Eligible 08/22/23 Private Assessment & Plan Assessment & Plan (1) Medicare annual wellness visit, subsequent: Code(s): Z00.00 - Encounter for general adult medical examination without abnormal findings (2) Impaired glucose tolerance: Code(s): R73.02 - Impaired glucose tolerance (oral) Plan: Decrease the amount of carbohydrate intake, pasta, bread, rice and potatoes are all sugar and that is aside from all the sweet stuff, remember that fruits are good but they are Sweet also. Patient has been started by Endocrinology with metformin 500 mg twice a day (3) Obesity (BMI 30-39.9): Code(s): E66.9 - Obesity, unspecified Plan: Diet and exercise (4) Hypothyroidism: Code(s): E03.9 - Hypothyroidism, unspecified Qualifiers: Hypothyroidism type: acquired Qualified Code(s): E03.9 - Hypothyroidism, unspecified Plan: TSH noted to be elevated (5) Hypercholesterolemia: Code(s): E78.00 - Pure hypercholesterolemia, unspecified Plan: Avoid fried foods, chicken skin, eggs, butter margarine, pastries and meat. Be it pork or beef they have a lot of cholesterol LDL goal of less than 130 and triglyceride of less than 150 patient is on atorvastatin 40 mg once a day (6) Barretts esophagus: Code(s): K22.70 - 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 Qualifiers: Pinto's esophagus type: without dysplasia Qualified Code(s): K22.70 - 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 Plan: Avoid the foods that causes that usually spicy foods, tomato products, juices, coffee, soda and foods that your sensitive to. After eating do not lie down, allow 3-4 hours before in lie down. And keep the head of bed above 30 degrees to avoid the acid from going up. (7) Breast cancer screening by mammogram: Code(s): Z12.31 - Encounter for screening mammogram for malignant neoplasm of breast Plan: Reminded about mammogram (8) Recurrent depression: Code(s): F33.9 - Major depressive disorder, recurrent, unspecified Orders: Orders Influenza [id number] Immunization Today Z23 - Encounter for immunization Referrals Psychiatry Referral F33.9 - Major depressive disorder, recurrent, unspecified Coding Level of Care Code Medicare Subsequent (G0439) Diagnoses Medicare annual wellness visit, subsequent Z00.00 Impaired glucose tolerance R73.02 Obesity (BMI 30-39.9) E66.9 Acquired hypothyroidism E03.9 Hypothyroidism type: acquired Hypercholesterolemia E78.00 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 K22.70 Pinto's esophagus type: without dysplasia Breast cancer screening by mammogram Z12.31 Recurrent depression F33.9
== END 2023-08-22 14:58 | disposition home or self-care (01) ==
PROVIDERS: PCP Internal Medicine; Visit Provider Internal Medicine
DX: Z00.00 Encounter for general adult medical examination without abnormal findings (principal); F33.9 Major depressive disorder, recurrent, unspecified; E66.9 Obesity, unspecified; Z68.33 Body mass index [BMI] 33.0-33.9, adult; Z23 Encounter for immunization; R73.02 Impaired glucose tolerance (oral); E03.9 Hypothyroidism, unspecified; E78.00 Pure hypercholesterolemia, unspecified; K22.70 Barrett's esophagus without dysplasia; Z12.31 Encounter for screening mammogram for malignant neoplasm of breast
CPT/HCPCS: 90471; 90686; G0439

== ENCOUNTER 2023-08-28 13:44 | Outpatient (AMB) | payer MEDICARE, SELFPAY ==
--- NOTE | 2023-08-28 13:57 | MHC.OFFVIS ---
Intake Vital Signs 08/28/23 13:58 Height 5 ft 1 in Weight 182 lb BMI 34.4 BP 120/64 Blood Pressure Location Lt brachial Position Sitting Pulse 76 Pulse Source Pulse Oximeter Pulse Oximetry (%) 95 Oxygen Delivery Method Room Air Intake Visit Reasons: Cough Intake Note: pt is here for follow up and states she coughs all the time, she has phlegm that is an issue. needs refill singular, albuterol and milana. District Home [employer] Agent Required: No Allergies No Known Allergies [No Known Allergies*] Allergy (Verified 08/28/23 14:24) Medication List - Last Reconciled 08/28/23 by Cassandra De Anda MD albuterol sulfate 90 mcg/actuation (ProAir HFA) 2 puffs inhalation Q4-6H PRN alprazolam 0.25 mg PO DAILY PRN 90 days atorvastatin 40 mg PO DAILY blood sugar diagnostic ([employer]Touch Ultra Test strips) tests 3X/day calcium carbonate-vitamin D3 600 mg-5 mcg (200 unit) 1 tab PO DAILY cholecalciferol (vitamin D3) 50 mcg PO DAILY fexofenadine (Milana Allergy) 180 mg PO DAILY lancets As directed lancets ([employer]Touch Delica Lancets) Test blood sugar twice a day levothyroxine 137 mcg PO QAM meloxicam 15 mg PO DAILY metformin 500 mg PO BID montelukast 10 mg PO DAILY omeprazole 20 mg PO DAILY OneTouch Ultra Blue Test Strip (blood sugar diagnostic) once a day NS sucralfate 1 g PO BID Do you need a note to return to daycare/school/sports/work: No HPI Cough HPI Details 73 YEARS OLD FEMALE, IS KNOWN TO HAVE CHRONIC COUGH BUT THIS IS MOSTLY RELATED TO HER UPPER AIRWAY ALLERGIES. CURRENTLY SHE HAS BEEN OUT OF HER ANTIHISTAMINIC AGENT WELL THE MONTELUKAST. SHE HAS ALSO BEEN OUT OF PROAIR INHALER . FOR THE LAST FEW WEEKS SHE DENIES HAVING ANY RECENT. RESPIRATORY INFECTION WHILE SHE WAS IN THE OFFICE I DID NOT HEAR HER COUGHING. SHE STATES THAT IN THE HOUSE HER COUGH IS MOSTLY DUE TO POSTNASAL DISCHARGE. SHE FEELS SOMEWHAT CONGESTED IN THE NOSE. SHE DENIES ANY WHEEZING. SHE CAN WALK AROUND IN THE HOUSE WITH MILD SHORTNESS OF BREATH ON WALKING [facility] Medical History (Updated 08/28/23 @ 14:32 by Cassandra De Anda MD) Cough Depression Breast cancer screening by mammogram Allergic rhinitis Chronic cough Breast density Finger pain, left Nasal bone fracture Barretts esophagus Hiatal hernia Urge incontinence Anxiety Hypercholesterolemia Hypothyroidism Impaired glucose tolerance Obesity (BMI 30-39.9) Vitamin D deficiency Osteopenia Surgical History Hx of foot surgery History of bladder surgery Hx of cholecystectomy Family History Father No problems noted. Mother No problems noted. Paternal Grandmother Diabetes mellitus Social History Housing: Apartment Alcohol intake: never Patient Tobacco Use Status: Former Tobacco user Tobacco use type: Cigarette Years Smoked: 1982 e-Cigarette/Vaping Use: Never Used Second Hand Smoke Exposure: No service: No Current occupational status: disabled Cognitive needs: No Hearing needs: Yes (hearing aids) Vision needs: Yes (glasses ) Review of Systems Const All systems reviewed & are unremarkable except as noted in HPI and below Eyes Reports no additional complaints ENT Reports nasal congestion and Reports nasal discharge (Mild off and) Card Denies chest pain, Denies irregular heart rhythm and Denies lightheadedness Resp Reports as per HPI GI Reports heartburn (Controlled) Reports no additional complaints Musc Reports no additional complaints Skin/Breast Reports system reviewed and no additional complaints, except as documented Neuro Reports no additional complaints Psych Reports anxiety (Mild) Endo Reports other (Diabetes mellitus) Aller/Immun Reports no additional complaints Physical Exam Vital Signs: Last Vital Signs Pulse 76 08/28/23 13:58 BP 120/64 08/28/23 13:58 Pulse Ox 95 08/28/23 13:58 Oxygen Delivery Method Room Air 08/28/23 13:58 BMI result Body Mass Index 34.4 Const General: comfortable, no acute distress, alert and awake Orientation/consciousness: patient oriented x3 HEENT Head: Yes normal to inspection General nose exam: No nasal polyps present, No nasal discharge present and Other nasal findings present (Mild bilateral nasal congestion) Face and sinus: Yes sinuses nontender Mouth: oropharynx normal Throat: Yes posterior oropharynx normal Eyes General: appearance normal, both eyes and all related structures Neck Neck: Yes normal visual inspection, Yes no lymphadenopathy, Yes trachea midline and Yes no JVD Thyroid: Thyroid normal Chest Chest palpation & inspection: normal inspection of the chest, normal palpation of entire chest wall and no tenderness Resp Effort & Inspection: normal respiratory effort Auscultation: clear to auscultation bilaterally, no crackles, no rales and no wheezes Cardio Palpation: normal PMI Rate: regular rate Rhythm: regular rhythm Heart sounds: no gallops and no murmurs Peripheral pulses: Peripheral pulses 2+ throughout GI Palpation (GI): Soft to palpation, nontender, No hepatosplenomegaly present and no masses Auscultation: normal bowel sounds Back/Spine/Pelvis Thoracic/Lumbar Spine: thoracic and lumbar spine normal to inspection Skin General skin exam: no rashes or lesions noted Neuro General: patient oriented x3 and no focal motor deficits Cranial nerves: Yes CN's II-XII intact bilaterally Extrem General: Yes normal to inspection, Yes no clubbing, cyanosis or edema and Yes no calf tenderness Psych Appearance: grossly normal and well kempt Speech and movement: Normal speech and movement present Assessment & Plan Assessment & Plan (1) Allergic rhinitis: Comment: TX : Her nasal allergy symptoms seem to be acting up at this time. She has only mild intermittent nasal congestion with postnasal discharge. Prescriptions are renewed for the following. MONTELUKAST 10 MG DAILY IS HELPFUL USES FEXOFENADINE 180 MG ONCE A DAY ONLY P.R.N.. Code(s): J30.9 - Allergic rhinitis, unspecified (2) Cough: Comment: Chronic cough which flares up with the upper airways allergy problem, especially nasal congestion and postnasal drip. TX : Restart using the meds for allergic rhinitis , I will renew the prescriptions. May use OTC cough syrup such as Nyquil 1 or 2 tsp at nighttime. She may also have mild degree of reactive airways. And if she has persistent bouts of cough she can use ProAir 1 or 2 puffs Q 6 hours p.r.n.. Code(s): R05 - Cough Coding Level of Care Code Est Pt Level 3 (63251) Diagnoses Allergic rhinitis J30.9 Cough R05
[2023-08-28 13:58] VITALS: BP 120/64; PULSE 76; O2SAT 95; BMI 34.4
== END 2023-08-28 14:25 | disposition home or self-care (01) ==
PROVIDERS: PCP Internal Medicine; Visit Provider Internal Medicine
DX: J30.9 Allergic rhinitis, unspecified (principal); R05.9 Cough, unspecified
CPT/HCPCS: 99213

== ENCOUNTER → 2023-08-28 13:44 | Outpatient (BNVA) | payer MEDICARE, SELFPAY | PROVIDERS: Visit Provider Internal Medicine | DX: R05.3 Chronic cough (principal); J30.9 Allergic rhinitis, unspecified | CPT/HCPCS: 99212 ==

== ENCOUNTER 2023-09-18 13:57 | Outpatient (REF) | payer MEDICARE, SELFPAY | END 2023-09-18 13:58 | disposition home or self-care (01) | LOC: HO.MAMMO 13:57 | PROVIDERS: PCP Internal Medicine; Visit Provider Internal Medicine | DX: Z12.31 Encounter for screening mammogram for malignant neoplasm of breast (principal) | CPT/HCPCS: 77063; 77067 ==

== ENCOUNTER → 2023-09-18 14:15 | Outpatient (BNV) | payer MEDICARE, SELFPAY | PROVIDERS: PCP Internal Medicine; Visit Provider Radiology Diagnostic Radiology | DX: Z12.31 Encounter for screening mammogram for malignant neoplasm of breast (principal) | CPT/HCPCS: 77063; 77067 ==

== ENCOUNTER 2023-12-13 14:39 | Outpatient (AMB) | payer MEDICARE, SELFPAY ==
[2023-12-13 14:44] VITALS: BP 136/84; PULSE 36; O2SAT 99; BMI 33.8
--- NOTE | 2023-12-13 14:44 | MHC.PC.OV ---
Vital Signs 12/13/23 14:44 12/13/23 15:31 Height 5 ft 1 in Weight 179 lb BMI 33.8 BP 136/84 Blood Pressure Location Lt brachial Position Sitting Pulse 36 L 80 Pulse Source Pulse Oximeter Auscultation Pulse Oximetry (%) 99 Oxygen Delivery Method Room Air Intake Visit Reasons: 3 month f/u Intake Note: Patient is here to follow up on 3 months Service Aide Required: No Allergies No Known Allergies [No Known Allergies*] Allergy (Verified 12/13/23 14:51) Medication List - Last Reconciled 12/13/23 by Shauna Rodriguez MD albuterol sulfate 90 mcg/actuation (ProAir HFA) 2 puffs inhalation Q4-6H PRN 30 days alprazolam 0.25 mg PO DAILY PRN 90 days atorvastatin 40 mg PO DAILY blood sugar diagnostic (Splend[employer]Touch Ultra Test strips) tests 3X/day calcium carbonate-vitamin D3 600 mg-5 mcg (200 unit) 1 tab PO DAILY cholecalciferol (vitamin D3) 50 mcg PO DAILY fexofenadine (Milana Allergy) 180 mg PO DAILY lancets As directed lancets (SplendiaTouch Delica Lancets) Test blood sugar twice a day levothyroxine 137 mcg PO QAM meloxicam 15 mg PO DAILY metformin 500 mg PO BID montelukast 10 mg PO DAILY omeprazole 20 mg PO DAILY OneTouch Ultra Blue Test Strip (blood sugar diagnostic) once a day NS Tobacco use date assessed: 12/13/23 Fall risk assessment: No Falls in past year Last assessed Fall Risk: 12/13/23 Dental Screening Dental Screen Date: 12/13/23 HPI 3 month f/u HPI Details 73-year-old obese female with impaired glucose tolerance hypothyroidism hypercholesterolemia Pinto's esophagus and recurrent depression last seen in August 2023. Patient's colonoscopy is up-to-date mammogram is up-to-date bone density is due. Review of the notes in August was seen by Pulmonary for the cough diagnosis of allergic rhinitis and advised to take montelukast and fexofenadine. [facility] Medical History (Updated 08/28/23 @ 14:32 by Cassandra De Anda MD) Cough Depression Breast cancer screening by mammogram Allergic rhinitis Chronic cough Breast density Finger pain, left Nasal bone fracture Barretts esophagus Hiatal hernia Urge incontinence Anxiety Hypercholesterolemia Hypothyroidism Impaired glucose tolerance Obesity (BMI 30-39.9) Vitamin D deficiency Osteopenia Surgical History Hx of foot surgery History of bladder surgery Hx of cholecystectomy Family History Father No problems noted. Mother No problems noted. Paternal Grandmother Diabetes mellitus Social History Housing: Apartment Alcohol intake: never Patient Tobacco Use Status: Former Tobacco user Tobacco use type: Cigarette Years Smoked: quit 1982 e-Cigarette/Vaping Use: Never Used Second Hand Smoke Exposure: No service: No Current occupational status: disabled Cognitive needs: No Hearing needs: Yes (hearing aids) Vision needs: Yes (glasses ) Questionnaire Thrive Questionnaire Date Thrive assessed: 04/14/23 THUY-7 AMB Questionnaire THUY-7 Date THUY - 7 assessed: 04/14/23 Source: Developed by Drs. Mor Miller, Samara Stack, Newton Logan and colleagues, with an educational adriane from [employer]. Physical exam (Primary Care) Vital Signs: Last Vital Signs Pulse 36 L 12/13/23 14:44 BP 136/84 12/13/23 14:44 Pulse Ox 99 12/13/23 14:44 Oxygen Delivery Method Room Air 12/13/23 14:44 BMI result Body Mass Index 33.8 Tobacco/Smoking Status: Tobacco use Status Tobacco use date assessed 12/13/23 12/13/23 14:45 Patient Tobacco Use Status Former Tobacco user 12/13/23 14:45 Tobacco use type Cigarette 12/13/23 14:45 e-Cigarette/Vaping Use Never Used 12/13/23 14:45 Thrive Assessment: Date of Thrive Assessment Date Thrive assessed 04/14/23 12/13/23 14:45 Const General: alert; No acute distress Eyes Conjunctivae: conjunctivae normal Resp Auscultation: clear to auscultation bilaterally Cardio Other: bigeminy Rate: regular rate Rhythm: regular rhythm GI Inspection: Yes normal to inspection Extrem General: Yes normal to inspection and No edema Results AMB Hemoglobin A1c AMB Hemoglobin A1c 6.4 % Last Edit by BONNIE Leon on 12/13/23 14:58 Results Reviewed Results Reviewed: Laboratory Last Values Hgb A1c (Clinic) 6.4 % (4.0-6.0) H 12/13/23 14:47 Assessment and Plan Assessment & Plan (1) Obesity (BMI 30-39.9): Code(s): E66.9 - Obesity, unspecified Plan: Diet and exercise (2) Impaired glucose tolerance: Code(s): R73.02 - Impaired glucose tolerance (oral) Plan: Decrease the amount of carbohydrate intake, pasta, bread, rice and potatoes are all sugar and that is aside from all the sweet stuff, remember that fruits are good but they are Sweet also. Patient has been placed on metformin 500 mg twice a day by electronic imager (3) Hypothyroidism: Code(s): E03.9 - Hypothyroidism, unspecified Qualifiers: Hypothyroidism type: acquired Qualified Code(s): E03.9 - Hypothyroidism, unspecified Plan: Continue with thyroid medication but will need to get blood work. (4) Hypercholesterolemia: Code(s): E78.00 - Pure hypercholesterolemia, unspecified Plan: Avoid fried foods, chicken skin, eggs, butter margarine, pastries and meat. Be it pork or beef they have a lot of cholesterol LDL goal of less than 100 and triglyceride of less than 150. Patient on atorvastatin 40 mg once a day (5) GERD (gastroesophageal reflux disease): Code(s): K21.9 - Gastro-esophageal reflux disease without esophagitis Plan: Avoid the foods that causes that usually spicy foods, tomato products, juices, coffee, soda and foods that your sensitive to. After eating do not lie down, allow 3-4 hours before in lie down. And keep the head of bed above 30 degrees to avoid the acid from going up. (6) Osteopenia: Code(s): M85.80 - Other specified disorders of bone density and structure, unspecified site Qualifiers: Osteopenia location: multiple sites Qualified Code(s): M85.89 - Other specified disorders of bone density and structure, multiple sites Plan: Patient was advised to get bone density done (7) Allergic rhinitis: Comment: TX : Her nasal allergy symptoms seem to be acting up at this time. She has only mild intermittent nasal congestion with postnasal discharge. Prescriptions are renewed for the following. MONTELUKAST 10 MG DAILY IS HELPFUL USES FEXOFENADINE 180 MG ONCE A DAY ONLY P.R.N.. Code(s): J30.9 - Allergic rhinitis, unspecified Plan: Patient has seen Pulmonary and has been placed on montelukast and fexofenadine Orders: Orders AMB Hemoglobin A1c Today Z13.9 - Encounter for screening, unspecified XR DEXA axial skeleton Today M81.0 - Age-related osteoporosis without current pathological fracture Thyroid Stimulating Hormone Today E03.9 - Hypothyroidism, unspecified Free T4 (Free Thyroxine) Today E03.9 - Hypothyroidism, unspecified Medications: Refilled omeprazole 20 mg PO DAILY 90 caps 2RF E03.9 - Hypothyroidism, unspecified Coding Level of Care Code Est Pt Level 4 (13510) Diagnoses Obesity (BMI 30-39.9) E66.9 Impaired glucose tolerance R73.02 Acquired hypothyroidism E03.9 Hypothyroidism type: acquired Hypercholesterolemia E78.00 GERD (gastroesophageal reflux disease) K21.9 Osteopenia of multiple sites M85.89 Osteopenia location: multiple sites Allergic rhinitis J30.9
[2023-12-13 15:31] VITALS: PULSE 80
== END 2023-12-13 15:37 | disposition home or self-care (01) ==
PROVIDERS: PCP Internal Medicine; Visit Provider Internal Medicine
DX: R73.02 Impaired glucose tolerance (oral) (principal); E66.9 Obesity, unspecified; Z68.33 Body mass index [BMI] 33.0-33.9, adult; E03.9 Hypothyroidism, unspecified; E78.00 Pure hypercholesterolemia, unspecified; K21.9 Gastro-esophageal reflux disease without esophagitis; M85.89 Other specified disorders of bone density and structure, multiple sites; J30.9 Allergic rhinitis, unspecified
CPT/HCPCS: 83036; 99214

== ENCOUNTER 2024-01-03 13:17 | Outpatient (REF) | payer MEDICARE, SELFPAY ==
--- NOTE | ~2024-01-03 | MM_ITS ---
EXAMINATION: BONE DENSITOMETRY CLINICAL INDICATION: Age-related osteoporosis without current pathological fracture. COMPARISON: Previous BD dated 11/19/2021 and baseline BD dated 12/27/2013. TECHNIQUE: Using a [employer] DXA System (software version: 13.1) manufactured by [employer], dual-energy x-ray absorptiometry was performed of the lumbar spine and left hip. The images are of good technical quality. Summary results are attached. FINDINGS: LEFT FEMUR, NECK: Current: BMD 0.829 g/cm2, Z-score 0.0, T-score -1.5, osteopenia. Prior: BMD 0.835 g/cm2. Baseline: BMD 0.877 g/cm2. LEFT FEMUR, TOTAL: Current: BMD 1.020 g/cm2, Z-score 1.4, T-score 0.1, normal, 5.1% decrease from previous, 8.9% decrease from baseline (<5% change is not significant). Prior: BMD 1.075 g/cm2. Baseline: BMD 1.120 g/cm2. AP SPINE L1-L4: Current: BMD 1.216 g/cm2, Z-score 1.5, T-score 0.3, normal, 8.5% decrease from previous, 7.1% decrease from baseline (<5% change is not significant). Prior: BMD 1.329 g/cm2. Baseline: BMD 1.309 g/cm2. IDENTIFIED RISK FACTORS: Early menopause, secondary osteoporosis (type 1 diabetes). HISTORY OF FRACTURE: None listed. MEDICATIONS: Calcium, vitamin D. MM/XR DEXA axial skeleton IMPRESSION: 1. DIAGNOSIS: Osteopenia based on the lowest T-score value of -1.5 in the femoral neck applying World Health Organization criteria. 2. 10-YEAR FRACTURE RISK PREDICTION, FRAX: Major osteoporotic fracture (clinical spine, forearm, hip or shoulder) 10.2%. Hip fracture 1.8%. 3. Treatment Recommendations: NOF guidelines recommend consideration for treatment in postmenopausal women and men age 50 and older presenting with the following: -A hip or vertebral (clinical or morphometric) fracture. -T-score less than or equal to -2.5 at the femoral neck or spine after appropriate evaluation to exclude secondary causes. -Low bone mass at the hip or spine and a 10-year fracture probability by FRAX of greater than or equal to 3% for hip fracture or greater than or equal to 20% for major osteoporotic fracture based on the [place] adapted WHO algorithm. 4. Other Recommendations: All treatment decisions require clinical judgment and consideration of individual patient factors, including patient preferences, comorbidities, previous drug use, risk factors not captured in the FRAX model (e.g. frailty, falls, vitamin D deficiency, increased bone turnover, interval significant decline in bone density) and possible under or overestimation of fracture risk by FRAX. Additional medical evaluation for secondary cause of low bone mineral density may be appropriate. FUTURE SCAN RECOMMENDATION: People with diagnosed cases of osteoporosis or at high risk for fracture should have regular bone mineral density tests. For patients eligible for Medicare, routine testing is allowed once every 2 years. The testing frequency can be increased to one year for patients who have rapidly progressing disease, those who are receiving or discontinuing medical therapy to restore bone mass, or have additional risk factors.
== END 2024-01-03 13:18 | disposition home or self-care (01) ==
LOC: HO.MAMMO 13:17
PROVIDERS: PCP Internal Medicine; Visit Provider Internal Medicine
DX: Z13.820 Encounter for screening for osteoporosis (principal); M81.0 Age-related osteoporosis without current pathological fracture; Z78.0 Asymptomatic menopausal state
CPT/HCPCS: 77080

== ENCOUNTER 2024-02-12 14:02 | Outpatient (AMB) | payer MEDICARE, SELFPAY ==
[2024-02-12 14:19] VITALS: BP 130/62; PULSE 74; O2SAT 97; BMI 33.7
--- NOTE | 2024-02-12 14:19 | A.OFFVIS_ITS ---
Intake Vital Signs 02/12/24 14:19 Height 5 ft 1 in Weight 178 lb 9.191 oz BMI 33.7 BP 130/62 Blood Pressure Location Lt brachial Position Sitting Pulse 74 Pulse Source Pulse Oximeter Pulse Oximetry (%) 97 Oxygen Delivery Method Room Air Intake Visit Reasons: Cough Intake Note: pt is here for follow up and states she is feeling good, using inhalers, please refill albuterol hfa inhaler Chucker Required: No Allergies No Known Allergies [No Known Allergies*] Allergy (Verified 02/12/24 14:33) Medication List - Last Reconciled 02/12/24 by Cassandra De Anda MD albuterol sulfate 90 mcg/actuation (ProAir HFA) 2 puffs inhalation Q4-6H PRN 30 days alprazolam 0.25 mg PO DAILY PRN 90 days atorvastatin 40 mg PO DAILY blood sugar diagnostic ([employer] Ultra Test strips) tests 3X/day calcium carbonate-vitamin D3 600 mg-5 mcg (200 unit) 1 tab PO DAILY cholecalciferol (vitamin D3) 50 mcg PO DAILY fexofenadine (Milana Allergy) 180 mg PO DAILY lancets As directed lancets ([employer] Delica Lancets) Test blood sugar twice a day levothyroxine 137 mcg PO QAM meloxicam 15 mg PO DAILY metformin 500 mg PO BID montelukast 10 mg PO DAILY omeprazole 20 mg PO DAILY OneTouch Ultra Blue Test Strip (blood sugar diagnostic) once a day NS Do you need a note to return to daycare/school/sports/work: No HPI Cough HPI Details THIS 73 YEARS OLD VERY PLEASANT FEMALE COMES AFTER 6 MONTHS FOR HER ROUTINE FOLLOW-UP. SHE SUFFERS FROM ALLERGIC RHINITIS, AROUND THE YEAR, WHICH IS SOMEWHAT WORSE IN SPRING SEASON. BREATHING ARIAS HAS BEEN GOOD EXCEPT FOR OCCASIONAL CONGESTED FEELING AND WHEEZING. SHE WALKS AROUND WITH GAIN AND TRIES TO STAY ACTIVE. SHE HAS HAD NO RESPIRATORY INFECTION IN THE LAST 6 MONTHS. [facility] Medical History Cough Depression Breast cancer screening by mammogram Allergic rhinitis Chronic cough Breast density Finger pain, left Nasal bone fracture Barretts esophagus Hiatal hernia Urge incontinence Anxiety Hypercholesterolemia Hypothyroidism Impaired glucose tolerance Obesity (BMI 30-39.9) Vitamin D deficiency Osteopenia Surgical History Hx of foot surgery History of bladder surgery Hx of cholecystectomy Family History Father No problems noted. Mother No problems noted. Paternal Grandmother Diabetes mellitus Social History Housing: Apartment Alcohol intake: never Patient Tobacco Use Status: Former Tobacco user Tobacco use type: Cigarette Years Smoked: quit 1982 e-Cigarette/Vaping Use: Never Used Second Hand Smoke Exposure: No service: No Current occupational status: disabled Cognitive needs: No Hearing needs: Yes (hearing aids) Vision needs: Yes (glasses ) Review of Systems Const All systems reviewed & are unremarkable except as noted in HPI and below Eyes Reports no additional complaints ENT Reports nasal congestion and Reports nasal discharge (Mild off and) Card Denies chest pain, Denies irregular heart rhythm and Denies lightheadedness Resp Reports as per HPI GI Reports heartburn (Controlled) Reports no additional complaints Musc Reports no additional complaints Skin/Breast Reports system reviewed and no additional complaints, except as documented Neuro Reports no additional complaints Psych Reports anxiety (Mild) Endo Reports other (Diabetes mellitus) Aller/Immun Reports no additional complaints Physical Exam Vital Signs: Last Vital Signs Pulse 74 02/12/24 14:19 BP 130/62 02/12/24 14:19 Pulse Ox 97 02/12/24 14:19 Oxygen Delivery Method Room Air 02/12/24 14:19 BMI result Body Mass Index 33.7 Const General: comfortable, no acute distress, alert and awake Orientation/consciousness: patient oriented x3 HEENT Head: Yes normal to inspection General nose exam: No nasal polyps present, No nasal discharge present and Other nasal findings present (Mild bilateral nasal congestion) Face and sinus: Yes sinuses nontender Mouth: oropharynx normal Throat: Yes posterior oropharynx normal Eyes General: appearance normal, both eyes and all related structures Neck Neck: Yes normal visual inspection, Yes no lymphadenopathy, Yes trachea midline and Yes no JVD Thyroid: Thyroid normal Chest Chest palpation & inspection: normal inspection of the chest, normal palpation of entire chest wall and no tenderness Resp Effort & Inspection: normal respiratory effort Auscultation: clear to auscultation bilaterally, no crackles, no rales and no wheezes Cardio Palpation: normal PMI Rate: regular rate Rhythm: regular rhythm Heart sounds: no gallops and no murmurs Peripheral pulses: Peripheral pulses 2+ throughout GI Palpation (GI): Soft to palpation, nontender, No hepatosplenomegaly present and no masses Auscultation: normal bowel sounds Back/Spine/Pelvis Thoracic/Lumbar Spine: thoracic and lumbar spine normal to inspection Skin General skin exam: no rashes or lesions noted Neuro General: patient oriented x3 and no focal motor deficits Cranial nerves: Yes CN's II-XII intact bilaterally Extrem General: Yes normal to inspection, Yes no clubbing, cyanosis or edema and Yes no calf tenderness Psych Appearance: grossly normal and well kempt Speech and movement: Normal speech and movement present Assessment & Plan Assessment & Plan (1) Allergic rhinitis: Comment: TX : Her nasal allergy symptoms seem to be acting up at this time( SPRING SEASON ) She has only mild intermittent nasal congestion with postnasal discharge. Code(s): J30.9 - Allergic rhinitis, unspecified Plan: Prescriptions are renewed for the following. CONTINUE : MONTELUKAST 10 MG DAILY USES FEXOFENADINE 180 MG ONCE A DAY ONLY P.R.N.. (2) Cough: Comment: Chronic cough which flares up with the upper airways allergy problem, especially nasal congestion and postnasal drip. Seems to be related to chronic allergic rhinitis, Remains fairly well controlled with the use of meds. And if she has persistent bouts of cough she can use ProAir 1 or 2 puffs Q 6 hours p.r.n.. Code(s): R05 - Cough Plan: TX : May use OTC cough syrup such as Nyquil 1 or 2 tsp at nighttime. She may also have mild degree of reactive airways and is advised to use ProAir HFA 2 puffs Q 6 hours p.r.n.. Coding Level of Care Code Est Pt Level 3 (82551) Diagnoses Allergic rhinitis J30.9 Cough R05
== END 2024-02-12 14:46 | disposition home or self-care (01) ==
PROVIDERS: PCP Internal Medicine; Visit Provider Internal Medicine
DX: J30.9 Allergic rhinitis, unspecified (principal); R05.9 Cough, unspecified
CPT/HCPCS: 99213

== ENCOUNTER → 2024-02-12 14:02 | Outpatient (BNVA) | payer MEDICARE, SELFPAY | PROVIDERS: PCP Internal Medicine; Visit Provider Internal Medicine | DX: R05.3 Chronic cough (principal); J30.9 Allergic rhinitis, unspecified | CPT/HCPCS: 99212 ==

== ENCOUNTER 2024-05-30 14:40 | Outpatient (AMB) | payer MEDICARE, SELFPAY ==
[2024-05-30 14:42] VITALS: BP 154/70; PULSE 69; O2SAT 97; BMI 32.7
--- NOTE | 2024-05-30 14:42 | MHC.PC.OV ---
Vital Signs 05/30/24 14:42 Height 5 ft 1 in Weight 173 lb 0.4 oz BMI 32.7 BP 154/70 H Blood Pressure Location Lt brachial Position Sitting Pulse 69 Pulse Source Pulse Oximeter Pulse Oximetry (%) 97 Oxygen Delivery Method Room Air Intake Visit Reasons: IGT, Cholesterol , hypothryoid Complex Care Nurse Required: No Allergies No Known Allergies [No Known Allergies*] Allergy (Verified 05/30/24 14:45) Tobacco use date assessed: 12/13/23 Fall risk assessment: No Falls in past year Last assessed Fall Risk: 05/30/24 Dental Screening Dental Screen Date: 12/13/23 HPI IGT, Cholesterol , hypothryoid HPI Details 74-year-old obese female with impaired glucose tolerance hypothyroidism hypercholesterolemia GERD coming in for follow-up. Last seen in December 2023. Patient's colonoscopy is up-to-date mammogram is up-to-date bone density up-to-date. [facility]LY [facility] Medical History Cough Depression Breast cancer screening by mammogram Allergic rhinitis Chronic cough Breast density Finger pain, left Nasal bone fracture Barretts esophagus Hiatal hernia Urge incontinence Anxiety Hypercholesterolemia Hypothyroidism Impaired glucose tolerance Obesity (BMI 30-39.9) Vitamin D deficiency Osteopenia Surgical History Hx of foot surgery History of bladder surgery Hx of cholecystectomy Family History Father No problems noted. Mother No problems noted. Paternal Grandmother Diabetes mellitus Social History Housing: Apartment Alcohol intake: never Patient Tobacco Use Status: Former Tobacco user Tobacco use type: Cigarette Years Smoked: quit 1982 e-Cigarette/Vaping Use: Never Used Second Hand Smoke Exposure: No service: No Current occupational status: disabled Cognitive needs: No Hearing needs: Yes (hearing aids) Vision needs: Yes (glasses ) Questionnaire Thrive Questionnaire Date Thrive assessed: 05/30/24 I am a: Patient What is your living situation today?: I have a steady place to live Within the past 12 months, did the food you bought not last and you didn't have the money to get more?: Never true Within the past 12 months, did you worry whether your food would run out before you got money to buy more?: Never true Do you have trouble paying for medicines?: No Do you have trouble getting transportation to medical appointments?: No Do you have trouble paying your heating and electricity bill?: No Do you have trouble taking care of your child, family member or friend?: No Do you have trouble with day-to-day activities such as bathing, preparing meals, shopping, managing finances, etc.?: No Are you currently unemployed and looking for a job?: No Are you interested in more education?: No Please select the resources that you would like help with: None Currently or been in a relationship where the following occur: No concerns reported THRIVE Score: 0 AUDIT C Alcohol Use Questionnaire (AUDIT-C) 1. How often do you have a drink containing alcohol?: Never 2. How many drinks containing alcohol do you have on a typical day when you are drinking?: 1 or 2 (0) 3. How often do you have six or more drinks on one occasion?: Never Total Score: 0 Score Reviewed/Action Taken: No THUY-7 AMB Questionnaire THUY-7 Date THUY - 7 assessed: 08/04/23 Source: Developed by Drs. Mor Miller, Samara Stack, Newton Logan and colleagues, with an educational adriane from [employer]. Physical exam (Primary Care) Vital Signs: Last Vital Signs Pulse 69 05/30/24 14:42 BP 154/70 H 05/30/24 14:42 Pulse Ox 97 05/30/24 14:42 Oxygen Delivery Method Room Air 05/30/24 14:42 BMI result Body Mass Index 32.7 Tobacco/Smoking Status: Tobacco use Status Tobacco use date assessed 12/13/23 05/30/24 14:42 Patient Tobacco Use Status Former Tobacco user 05/30/24 14:42 Tobacco use type Cigarette 05/30/24 14:42 e-Cigarette/Vaping Use Never Used 05/30/24 14:42 Thrive Assessment: Date of Thrive Assessment Date Thrive assessed 05/30/24 05/30/24 14:50 Currently or been in a relationship where the following occur: No concerns reported Const General: alert; No acute distress Eyes Conjunctivae: conjunctivae normal Resp Auscultation: clear to auscultation bilaterally Cardio Rate: regular rate Rhythm: regular rhythm GI Inspection: Yes normal to inspection Extrem General: Yes normal to inspection and No edema Assessment and Plan Assessment & Plan (1) Obesity (BMI 30-39.9): Code(s): E66.9 - Obesity, unspecified Plan: Diet and exercise noted weight loss (2) Impaired glucose tolerance: Code(s): R73.02 - Impaired glucose tolerance (oral) Plan: Decrease the amount of carbohydrate intake, pasta, bread, rice and potatoes are all sugar and that is aside from all the sweet stuff, remember that fruits are good but they are Sweet also. Discussed concerns on increasing A1c (3) Hypothyroidism: Code(s): E03.9 - Hypothyroidism, unspecified Qualifiers: Hypothyroidism type: acquired Qualified Code(s): E03.9 - Hypothyroidism, unspecified Plan: Continue with thyroid medication TSH went up though (4) Barretts esophagus: Code(s): K22.70 - 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 Qualifiers: Pinto's esophagus type: without dysplasia Qualified Code(s): K22.70 - 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 Plan: Avoid the foods that causes that usually spicy foods, tomato products, juices, coffee, soda and foods that your sensitive to. After eating do not lie down, allow 3-4 hours before in lie down. And keep the head of bed above 30 degrees to avoid the acid from going up. (5) Hypercholesterolemia: Code(s): E78.00 - Pure hypercholesterolemia, unspecified Plan: Avoid fried foods, chicken skin, eggs, butter margarine, pastries and meat. Be it pork or beef they have a lot of cholesterol LDL goal of less than 100 and triglyceride of less than 150 (6) Blood pressure elevated without history of HTN: Code(s): R03.0 - Elevated blood-pressure reading, without diagnosis of hypertension Plan: concern BP elevated and advised to monitor BP Orders: Orders Comprehensive Met. Panel 3 Months R73.02 - Impaired glucose tolerance (oral) Complete Blood Count Auto Diff 3 Months R73.02 - Impaired glucose tolerance (oral) Thyroid Stimulating Hormone 3 Months R73.02 - Impaired glucose tolerance (oral) Vitamin B12 and Folate 3 Months R73.02 - Impaired glucose tolerance (oral) Vitamin D 25-OH Total 3 Months R73.02 - Impaired glucose tolerance (oral) Free T4 (Free Thyroxine) 3 Months R73.02 - Impaired glucose tolerance (oral) Hemoglobin A1c 3 Months R73.02 - Impaired glucose tolerance (oral) Lipid Panel 3 Months E78.00 - Pure hypercholesterolemia, unspecified, R73.02 - Impaired glucose tolerance (oral) Coding Level of Care Code Est Pt Level 4 (76100) Diagnoses Obesity (BMI 30-39.9) E66.9 Impaired glucose tolerance R73.02 Acquired hypothyroidism E03.9 Hypothyroidism type: acquired 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 K22.70 Pinto's esophagus type: without dysplasia Hypercholesterolemia E78.00 Blood pressure elevated without history of HTN R03.0
== END 2024-05-30 15:32 | disposition home or self-care (01) ==
PROVIDERS: PCP Internal Medicine; Visit Provider Internal Medicine
DX: R73.02 Impaired glucose tolerance (oral) (principal); E03.9 Hypothyroidism, unspecified; K22.70 Barrett's esophagus without dysplasia; E78.00 Pure hypercholesterolemia, unspecified; R03.0 Elevated blood-pressure reading, without diagnosis of hypertension
CPT/HCPCS: 99214

== ENCOUNTER 2024-08-12 14:17 | Outpatient (AMB) | payer MEDICARE, SELFPAY ==
--- NOTE | 2024-08-12 14:26 | A.OFFVIS_ITS ---
Vital Signs 08/12/24 14:27 Height 5 ft 1 in Weight 176 lb BMI 33.3 BP 160/72 H Blood Pressure Location Lt brachial Position Sitting Pulse 74 Pulse Source Pulse Oximeter Pulse Oximetry (%) 97 Oxygen Delivery Method Room Air Intake Visit Reasons: Dyspnea Intake Note: pt is here for follow up and states she feels like something is stuck in her throat, tickle in there she states. sneezing and coughing. Electric Dolly Operator Required: No Allergies No Known Allergies [No Known Allergies*] Allergy (Verified 08/12/24 15:12) Medication List - Last Reconciled 08/12/24 by Cassandra De Anda MD albuterol sulfate 90 mcg/actuation 2 puffs inhalation Q4-6H PRN 30 days alprazolam 0.25 mg PO DAILY PRN 90 days atorvastatin 40 mg PO DAILY blood sugar diagnostic (OneTouch Ultra Test strips) tests 3X/day calcium carbonate-vitamin D3 600 mg-5 mcg (200 unit) 1 tab PO DAILY cholecalciferol (vitamin D3) 50 mcg PO DAILY fexofenadine (Gabby Allergy) 180 mg PO DAILY lancets As directed lancets (OneTouch Delica Lancets) Test blood sugar twice a day levothyroxine 137 mcg PO QAM meloxicam 15 mg PO DAILY metformin 500 mg PO BID montelukast 10 mg PO DAILY omeprazole 20 mg PO DAILY OneTouch Ultra Blue Test Strip (blood sugar diagnostic) once a day NS Do you need a note to return to daycare/school/sports/work: No HPI HPI Dyspnea : Details: THIS 74 YEARS OLD FEMALE IS HERE FOR FOLLOW-UP AFTER 6 MONTHS. SHE HAS LONGSTANDING SYMPTOMS OF NASAL CONGESTION POSTNASAL DRIP TICKLISH FEELING IN THE THROAT, AND URGE TO CLEAR HER THROAT. HAS BEEN TREATED FOR ALLERGIC RHINITIS WITH MONTELUKAST AND FEXOFENADINE. INITIAL CHEST X-RAY. WAS UNREMARKABLE PULMONARY FUNCTION TEST WAS ORDERED BUT SHE COULD NOT PERFORM, DUE TO LACK OF SUSTAINED EFFORT. LAST YEAR SHE HAD A ATTEMPT AT SPIROMETRY IN THE OFFICE, AND COULD NOT MAINTAIN IS SUSTAINED EXPIRATORY EFFORT. THE AVAILABLE NUMBERS THE INDICATED THAT SHE HAS MODERATE DEGREE OF RESTRICTIVE PULMONARY DISORDER AND NO SIGNIFICANT OBSTRUCTIVE DISORDER. SHE IS NONSMOKER. TODAY SHE COMES FOR HER ROUTINE FOLLOW-UP AND BASICALLY HAS THE SAME SYMPTOMS DESCRIBED ABOVE. [facility] Medical History Cough Depression Breast cancer screening by mammogram Allergic rhinitis Chronic cough Breast density Finger pain, left Nasal bone fracture Barretts esophagus Hiatal hernia Urge incontinence Anxiety Hypercholesterolemia Hypothyroidism Impaired glucose tolerance Obesity (BMI 30-39.9) Vitamin D deficiency Osteopenia Surgical History Hx of foot surgery History of bladder surgery Hx of cholecystectomy Family History Father No problems noted. Mother No problems noted. Paternal Grandmother Diabetes mellitus Social History Housing: Apartment Alcohol intake: never Patient Tobacco Use Status: Former Tobacco user Tobacco use type: Cigarette Years Smoked: 1982 e-Cigarette/Vaping Use: Never Used Second Hand Smoke Exposure: No service: No Current occupational status: disabled Cognitive needs: No Hearing needs: Yes (hearing aids) Vision needs: Yes (glasses ) Review of Systems Const All systems reviewed & are unremarkable except as noted in HPI and below Eyes Reports no additional complaints ENT Reports nasal congestion and Reports nasal discharge (Mild off and) Card Denies chest pain, Denies irregular heart rhythm and Denies lightheadedness Resp Reports as per HPI GI Reports heartburn (Controlled) Reports no additional complaints Musc Reports no additional complaints Skin/Breast Reports system reviewed and no additional complaints, except as documented Neuro Reports no additional complaints Psych Reports anxiety (Mild) Endo Reports other (Diabetes mellitus) Aller/Immun Reports no additional complaints Physical Exam Vital Signs: Last Vital Signs Pulse 74 08/12/24 14:27 BP 160/72 H 08/12/24 14:27 Pulse Ox 97 08/12/24 14:27 Oxygen Delivery Method Room Air 08/12/24 14:27 BMI result Body Mass Index 33.3 Const General: comfortable, no acute distress, alert and awake Orientation/consciousness: patient oriented x3 HEENT Head: Yes normal to inspection General nose exam: No nasal polyps present, No nasal discharge present and Other nasal findings present (Mild bilateral nasal congestion) Face and sinus: Yes sinuses nontender Mouth: oropharynx normal Throat: Yes posterior oropharynx normal Eyes General: appearance normal, both eyes and all related structures Neck Neck: Yes normal visual inspection, Yes no lymphadenopathy, Yes trachea midline and Yes no JVD Thyroid: Thyroid normal Chest Chest palpation & inspection: normal inspection of the chest, normal palpation of entire chest wall and no tenderness Resp Effort & Inspection: normal respiratory effort Auscultation: clear to auscultation bilaterally, no crackles, no rales and no wheezes Cardio Palpation: normal PMI Rate: regular rate Rhythm: regular rhythm Heart sounds: no gallops and no murmurs Peripheral pulses: Peripheral pulses 2+ throughout GI Palpation (GI): Soft to palpation, nontender, No hepatosplenomegaly present and no masses Auscultation: normal bowel sounds Back/Spine/Pelvis Thoracic/Lumbar Spine: thoracic and lumbar spine normal to inspection Skin General skin exam: no rashes or lesions noted Neuro General: patient oriented x3 and no focal motor deficits Cranial nerves: Yes CN's II-XII intact bilaterally Extrem General: Yes normal to inspection, Yes no clubbing, cyanosis or edema and Yes no calf tenderness Psych Appearance: grossly normal and well kempt Speech and movement: Normal speech and movement present Assessment & Plan Assessment & Plan (1) Allergic rhinitis: Comment: TX : HAS LONGSTANDING HISTORY OF HER RECURRENT NASAL CONGESTION AND POSTNASAL D RIP, SECONDARY TO ALLERGIC RHINITIS. IT FLARES UP IN CERTAIN SEASONS. SEEMS TO BE CONTROLLED WITH USE OF MONTELUKAST, FEXOFENADINE AND Code(s): J30.9 - Allergic rhinitis, unspecified Category: Medical Plan: CONTINUE MONTELUKAST 10 MG ONCE A DAY. FEXOFENADINE (GABBY ) 180 MG ONCE A DAY. (2) Cough: Comment: Chronic cough which flares up with the upper airways allergy problem, especially nasal congestion and postnasal drip. Seems to be related to chronic allergic rhinitis, Remains fairly well controlled with the use of meds. Code(s): R05 - Cough Category: Medical Plan: MAY USE PROAIR 1 OR 2 PUFFS Q 6 HOURS P.R.N. FOR ANY SUSTAINED BOUT OF COUGH Coding Level of Care Code Est Pt Level 3 (79375) Diagnoses Allergic rhinitis J30.9 Cough R05
[2024-08-12 14:27] VITALS: BP 160/72; PULSE 74; O2SAT 97; BMI 33.3
== END 2024-08-12 15:11 | disposition home or self-care (01) ==
PROVIDERS: PCP Internal Medicine; Visit Provider Internal Medicine
DX: J30.9 Allergic rhinitis, unspecified (principal); R05.9 Cough, unspecified
CPT/HCPCS: 99213

== ENCOUNTER → 2024-08-12 14:17 | Outpatient (BNVA) | payer MEDICARE, SELFPAY | PROVIDERS: PCP Internal Medicine; Visit Provider Internal Medicine | DX: J30.9 Allergic rhinitis, unspecified (principal); R05.9 Cough, unspecified; R06.00 Dyspnea, unspecified; Z87.891 Personal history of nicotine dependence | CPT/HCPCS: 99212 ==

== ENCOUNTER 2024-11-12 09:18 | Outpatient (REF) | payer MEDICARE, SELFPAY ==
--- NOTE | ~2024-11-12 | MM_ITS ---
EXAMINATION: MM SCREENING DIGITAL BREAST TOMOSYNTHESIS, BILATERAL CLINICAL INFORMATION: Screening. Asymptomatic. COMPARISON: Mammography: Comparison is made with available priors TECHNIQUE: Digital breast mammography with tomosynthesis is performed in both the craniocaudal and mediolateral oblique views along with computer-aided detection (CAD). FINDINGS: There are scattered areas of fibroglandular density (ACR BI-RADS breast composition Category b). There are no significant masses, abnormal calcifications, or other abnormalities. MM/MM tomosynthesis screening BI IMPRESSION: No mammographic evidence of malignancy. ASSESSMENT: BI-RADS BI-RADS 1 - Negative RECOMMENDATION: Routine annual mammography screening. 1 year F/U This examination should not preclude the clinical evaluation of a suspicious palpable abnormality. This patient's information was entered into a reminder system with a target due date for their next mammogram. Electronically signed by: Martha Cervantes DO 11/18/2024 03:43 PM [facility]
== END 2024-11-12 09:19 | disposition home or self-care (01) ==
LOC: HO.MAMMO 09:18
PROVIDERS: PCP Internal Medicine; Visit Provider Internal Medicine
DX: Z12.31 Encounter for screening mammogram for malignant neoplasm of breast (principal)
CPT/HCPCS: 77063; 77067

== ENCOUNTER → 2024-11-12 09:30 | Outpatient (BNV) | payer MEDICARE, SELFPAY | PROVIDERS: PCP Internal Medicine; Visit Provider Internal Medicine | DX: Z12.31 Encounter for screening mammogram for malignant neoplasm of breast (principal) | CPT/HCPCS: 77063; 77067 ==

== ENCOUNTER 2024-12-31 08:26 | Outpatient (AMB) | payer MEDICARE, SELFPAY ==
--- NOTE | 2024-12-31 08:31 | MHC.PC.OV ---
Vital Signs 12/31/24 08:32 Height 5 ft 1 in Weight 172 lb BMI 32.5 BP 140/78 H Blood Pressure Location Lt brachial Position Sitting Pulse 78 Pulse Source Pulse Oximeter Pulse Oximetry (%) 95 Oxygen Delivery Method Room Air Intake Visit Reasons: cough Allergies No Known Allergies [No Known Allergies*] Allergy (Verified 12/31/24 08:37) Tobacco use date assessed: 12/31/24 Fall risk assessment: 2 + Falls in past year Last assessed Fall Risk: 12/31/24 Dental Screening Dental Screen Date: 12/31/24 Did you have a dental visit in the last 12 months?: No Did you have a dental problem in the last 6 months where you did not have access to dental care?: No Was dental information given to patient?: No HPI cough HPI Details concern on mental capacity- MMSE is 28/30 - no handicap. [facility] Medical History Cough Depression Breast cancer screening by mammogram Allergic rhinitis Chronic cough Breast density Finger pain, left Nasal bone fracture Barretts esophagus Hiatal hernia Urge incontinence Anxiety Hypercholesterolemia Hypothyroidism Impaired glucose tolerance Obesity (BMI 30-39.9) Vitamin D deficiency Osteopenia Surgical History Hx of foot surgery History of bladder surgery Hx of cholecystectomy Family History Father No problems noted. Mother No problems noted. Paternal Grandmother Diabetes mellitus Social History Housing: Apartment Alcohol intake: never Patient Tobacco Use Status: Former Tobacco user Tobacco use type: Cigarette Years Smoked: quit 1982 e-Cigarette/Vaping Use: Never Used Second Hand Smoke Exposure: No service: No Current occupational status: disabled Cognitive needs: Yes Hearing needs: Yes (hearing aids) Vision needs: Yes (glasses ) Questionnaire PHQ-9 Over the last 2 weeks, how often have you been bothered by any of the following problems? 1. Little interest or pleasure in doing things: more than half the days 2. Feeling down, depressed, or hopeless: more than half the days 3. Trouble falling or staying asleep, or sleeping too much: nearly every day 4. Feeling tired or having little energy: nearly every day 5. Poor appetite or overeating: not at all 6. Feeling bad about yourself - or that you are a failure or have let yourself or your family down: nearly every day 7. Trouble concentrating on things, such as reading the newspaper or watching television: more than half the days 8. Moving or speaking so slowly that other people could have noticed. Or the opposite - being so fidgety or restless that you have been moving around a lot more than usual: several days 9. Thoughts that you would be better off or of hurting yourself in some way: not at all Total score: 16 Depression Screening Interpretation: Positive Depression Screening Follow-up: Community Mental Health Worker F/U Depression Screening Done: Yes Source: Developed by Drs. Mor Miller, Samara Stack, Newton Logan and colleagues, with an educational adriane from [employer]. Thrive Questionnaire Date Thrive assessed: 12/31/24 I am a: Patient What is your living situation today?: I have a steady place to live Within the past 12 months, did the food you bought not last and you didn't have the money to get more?: Never true Within the past 12 months, did you worry whether your food would run out before you got money to buy more?: Never true Do you have trouble paying for medicines?: No Do you have trouble getting transportation to medical appointments?: No Do you have trouble paying your heating and electricity bill?: No Do you have trouble taking care of your child, family member or friend?: No Do you have trouble with day-to-day activities such as bathing, preparing meals, shopping, managing finances, etc.?: No Are you currently unemployed and looking for a job?: No Are you interested in more education?: No Please select the resources that you would like help with: None Currently or been in a relationship where the following occur: No concerns reported THRIVE Score: 0 AUDIT C Alcohol Use Questionnaire (AUDIT-C) 1. How often do you have a drink containing alcohol?: Never 2. How many drinks containing alcohol do you have on a typical day when you are drinking?: 1 or 2 (0) 3. How often do you have six or more drinks on one occasion?: Never Total Score: 0 Score Reviewed/Action Taken: No THUY-7 AMB Questionnaire THUY-7 Date THUY - 7 assessed: 12/31/24 Feeling nervous, anxious, or on edge: 0 = Not at all Not being able to stop or control worryin = Not at all Worrying too much about different things: 0 = Not at all Trouble relaxin = Not at all Being so restless that it is hard to sit still: 0 = Not at all Becoming easily annoyed or irritable: 0 = Not at all Feeling afraid as if something awful might happen: 0 = Not at all Total THUY-7 score (0-4 normal; 5-9 mild; 10-14 moderate; 15-21 severe): 0 Source: Developed by Drs. Mor Miller, Samara Stack, Newton Logan and colleagues, with an educational adriane from [employer]. Physical exam (Primary Care) Vital Signs: Last Vital Signs Pulse 78 12/31/24 08:32 BP 140/78 H 12/31/24 08:32 Pulse Ox 95 12/31/24 08:32 Oxygen Delivery Method Room Air 12/31/24 08:32 BMI result Body Mass Index 32.5 Tobacco/Smoking Status: Tobacco use Status Tobacco use date assessed 12/31/24 12/31/24 08:37 Patient Tobacco Use Status Former Tobacco user 12/31/24 08:32 Tobacco use type Cigarette 12/31/24 08:32 e-Cigarette/Vaping Use Never Used 12/31/24 08:32 PHQ-9: PHQ-9 Score PHQ-9: Total score 16 12/31/24 09:43 Depression Screening Interpretation: Positive Depression Screening Follow-up: Community Mental Health Worker F/U Thrive Assessment: Date of Thrive Assessment Date Thrive assessed 12/31/24 12/31/24 08:37 Currently or been in a relationship where the following occur: No concerns reported Const General: alert; No acute distress Eyes Conjunctivae: conjunctivae normal Resp Auscultation: clear to auscultation bilaterally Cardio Rate: regular rate Rhythm: regular rhythm GI Inspection: Yes normal to inspection Extrem General: Yes normal to inspection and No edema Office Procedures Flu Questionnaire Does the patient have a severe egg allergy?: No Does the patient have severe life threatening allergies?: No Does the patient have a fever or illness today?: No Has the patient ever had Guillain-[place] Syndrome?: No Has the patient ever had any past reaction to a flu shot?: No Results AMB Hemoglobin A1c AMB Hemoglobin A1c 6.9 % Last Edit by Natasha Mendoza CMA on 12/31/24 08:52 Immunizations Fluarix Triv [id number] (PF) 45 mcg (15 mcg x 3)/0.5 mL IM syringe Performing Provider: Shauna Rodriguez MD [facility] Administered by: BONNIE Burks on 12/31/24 09:43 Dose Route Admin Location Dispensed Lot Number Expiration Date [facility] U[employer] Tipper 0.5 mL IM Left Deltoid 0.5 mL [id number] 05/05/25 [id number] [facility] VIS Given Date VIS Provided VIS Publication Date 12/31/24 Single Vaccine 21 Eligibility Eligibility Date Funding Source Not [facility] Eligible 12/31/24 Private Results Reviewed Results Reviewed: Laboratory Last Values Hgb A1c (Clinic) 6.9 % (4.0-6.0) H 12/31/24 08:38 Coding Level of Care Code Est Pt Level 4 (16728) Complex EM visit Add On G2211 Diagnoses Impaired glucose tolerance R73.02 Obesity (BMI 30-39.9) E66.9 Acquired hypothyroidism E03.9 Hypothyroidism type: acquired Hypercholesterolemia E78.00 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 K22.70 Pinto's esophagus type: without dysplasia Allergic rhinitis J30.9 Blood pressure elevated without history of HTN R03.0 Hypertension I10 Assessment & Plan Assessment & Plan (1) Impaired glucose tolerance: Code(s): R73.02 - Impaired glucose tolerance (oral) Category: Medical Plan: Decrease the amount of carbohydrate intake, pasta, bread, rice and potatoes are all sugar and that is aside from all the sweet stuff, remember that fruits are good but they are Sweet also. Patient has been placed on metformin 500 mg twice a day by Endocrinology. (2) Obesity (BMI 30-39.9): Code(s): E66.9 - Obesity, unspecified Category: Medical Plan: Diet and exercise (3) Hypothyroidism: Code(s): E03.9 - Hypothyroidism, unspecified Category: Medical Qualifiers: Hypothyroidism type: acquired Qualified Code(s): E03.9 - Hypothyroidism, unspecified Plan: Continue with thyroid medication but the patient needs to have blood work done (4) Hypercholesterolemia: Code(s): E78.00 - Pure hypercholesterolemia, unspecified Category: Medical Plan: Avoid fried foods, chicken skin, eggs, butter margarine, pastries and meat. Be it pork or beef they have a lot of cholesterol LDL goal of less than 130 and triglyceride of less than 150 on atorvastatin 40 mg once a day patient needs blood work. (5) Barretts esophagus: Code(s): K22.70 - 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 Category: Medical Qualifiers: Pinto's esophagus type: without dysplasia Qualified Code(s): K22.70 - 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 Plan: Avoid the foods that causes that usually spicy foods, tomato products, juices, coffee, soda and foods that your sensitive to. After eating do not lie down, allow 3-4 hours before in lie down. And keep the head of bed above 30 degrees to avoid the acid from going up. On omeprazole (6) Allergic rhinitis: Comment: [place] : HAS LONGSTANDING HISTORY OF HER RECURRENT NASAL CONGESTION AND POSTNASAL DRIP, SECONDARY TO ALLERGIC RHINITIS. IT FLARES UP IN CERTAIN SEASONS. SEEMS TO BE CONTROLLED WITH USE OF MONTELUKAST, FEXOFENADINE AND Code(s): J30.9 - Allergic rhinitis, unspecified Category: Medical Plan: With a chronic cough patient has been sent to Pulmonary and has been told that the cough is most likely from allergic rhinitis on montelukast and may use inhaler as needed (7) Blood pressure elevated without history of HTN: Code(s): R03.0 - Elevated blood-pressure reading, without diagnosis of hypertension Category: Medical Plan: . (8) Hypertension: Code(s): I10 - Essential (primary) hypertension Category: Medical Plan History of Present Illness The patient is a 74-year-old female presenting with hypertension follow-up, chronic cough management, and diabetes monitoring. The patient had an elevated blood pressure noted on May 30, 2024, and was advised to follow up today for further evaluation. She resides with her daughter and has been consuming a high amount of coffee mixed with sugar substitutes, which may affect her hypertension control. Her history includes a chronic cough with an onset noted in the past months. She was evaluated by pulmonology and diagnosed with chronic allergic rhinitis. She was treated with montelukast and advised on the usage of an inhaler as needed. No significant improvements were noted since the last evaluation. The patient reports the cough bothers her day and night, mostly triggered by allergies, as per pulmonology assessment. She has Type 2 Diabetes Mellitus with impaired glucose tolerance. Her initial A1c readings under medication were controlled, but recent readings in December 2023 indicated progression. Her current medication plan includes Metformin 500 mg twice a day. Despite dietary recommendations for diabetes management, she has struggled to follow a diabetic diet consistently. The patient's diet includes high sugar, flour-based foods, and she leads a sedentary lifestyle with minimal exercise. For hypercholesterolemia, she is on atorvastatin with a past LDL noted as 57 mg/dL. The cholesterol management goals include maintaining LDL below 130 mg/dL and triglycerides below 150 mg/dL. She has GERD, managed by omeprazole without recent exacerbations noted. The history of colon cancer screenings includes a colonoscopy in 2015, with plans for another screening next year. Mammogram and bone density tests are reported up to date. Health Maintenance - Mammography: Up to date - Bone Density: Up to date - Colonoscopy: Last performed in 2015, planned for next year - Diabetic eye exam: Completed on June 28, 2024 - Annual flu vaccination due today Social History - Lives with daughter - Reports high coffee intake, with multiple cups a day and use of sugar substitutes - Sedentary lifestyle, minimal exercise reported - Diet includes snicker cream with coffee, toast, waffles, and muffins - Functional status: Occasional falls, uses a cane for stability Review of Systems - Respiratory: Reports chronic cough day and night, attributed to allergies - Cardiovascular: Denies chest pain, palpitations, or edema - Musculoskeletal: Reports knee pain, possibly arthritis Physical Exam - Cardiovascular- Blood pressure noted as 140 mmHg - Musculoskeletal- Exam reveals signs of knee discomfort attributed to arthritis Results - Labs: Past LDL cholesterol was 57 mg/dL, A1c elevated at 6.9% - Screening: Diabetic eye exam performed in June 2024 Plan - Start patient on antihypertensive medication for hypertension management due to consistently elevated readings over recent visits. - Recommend dietary modifications for diabetic control; continue Metformin 500 mg twice daily for diabetes management. - Reinforce weight management strategies through diet and exercise. - Re-evaluate cholesterol management, confirming need for updated labs, continue atorvastatin 40 mg daily. - Maintain current management of GERD with omeprazole; review as needed. - Increase focus on ergonomic interventions and stability aids for arthritis-related knee discomfort and risk of falls. - Introduce Claritin for allergy management and chronic cough reduction. - Provide flu vaccination today and reinforce preventive care. Patient was informed and verbally consented to the use of an ambient scribe for clinic note documentation during this visit. Discussion Notes I discussed the chronic nature of hypertension with the patient and indicated the necessity for strict adherence to antihypertensive therapy. I recommended lifestyle alterations for better cardiovascular health, including dietary changes aiming to reduce intake of high-calorie and sugar-rich foods and enhancing physical activities. We reviewed her diabetes status, discussing the need for continued Metformin therapy and dietary management to control her glucose levels. I emphasized the impact of her current diet on both her diabetes and her elevated cholesterol and hypertension, stressing the importance of dietary changes and exercise for better health outcomes. We addressed her chronic cough, tying it to allergic rhinitis and discussing further allergy management with the addition of Claritin. We also talked about fall prevention, advising use of her cane to prevent potential injuries. After discussing possible medication side effects, she consented to the flu shot. Patient Instructions - Take prescribed blood pressure medications daily as instructed. - Follow a diabetic diet to improve blood sugar control. - Exercise regularly to promote cardiovascular health. - Reduce coffee consumption and focus on hydration. - Use cane for assistance to prevent falls. - Take Claritin as instructed for allergy relief. - Schedule a lab appointment for updated cholesterol levels. - Attend follow-up appointments as scheduled. - Get the flu shot administered today before leaving. Orders: Orders Microalbumin, Random (w Creat) Today E11.65 - Type 2 diabetes mellitus with hyperglycemia AMB Hemoglobin A1c Today Z13.9 - Encounter for screening, unspecified Creatinine Urine Today E11.65 - Type 2 diabetes mellitus with hyperglycemia Influenza [id number] Immunization Today Z23 - Encounter for immunization Medications: New lisinopril 5 mg PO DAILY 90 tabs 1RF I10 - Essential (primary) hypertension Refilled calcium carbonate-vitamin D3 600 mg-5 mcg (200 unit) 1 tab PO DAILY 90 tabs 0RF M85.80 - Other specified disorders of bone density and structure, unspecified site albuterol sulfate 90 mcg/actuation 2 puffs inhalation Q4-6H PRN 8.5 grams 0RF shortness of breath or wheezing 30 days R05 - Cough fexofenadine (Allergy Relief (fexofenadine)) 180 mg PO DAILY 90 tabs 0RF for allergic rhinitis R05 - Cough
[2024-12-31 08:32] VITALS: BP 140/78; PULSE 78; O2SAT 95; BMI 32.5
== END 2024-12-31 09:32 | disposition home or self-care (01) ==
PROVIDERS: PCP Internal Medicine; Visit Provider Internal Medicine
DX: R73.02 Impaired glucose tolerance (oral) (principal); E66.9 Obesity, unspecified; E03.9 Hypothyroidism, unspecified; Z68.32 Body mass index [BMI] 32.0-32.9, adult; E78.00 Pure hypercholesterolemia, unspecified; K22.70 Barrett's esophagus without dysplasia; J30.9 Allergic rhinitis, unspecified; R03.0 Elevated blood-pressure reading, without diagnosis of hypertension; I10 Essential (primary) hypertension; Z23 Encounter for immunization

== ENCOUNTER → 2024-12-31 08:26 | Outpatient (BNVA) | payer MEDICARE, SELFPAY | PROVIDERS: PCP Internal Medicine; Visit Provider Internal Medicine | DX: Z23 Encounter for immunization (principal); R73.02 Impaired glucose tolerance (oral); E66.9 Obesity, unspecified; E03.9 Hypothyroidism, unspecified; E78.00 Pure hypercholesterolemia, unspecified; K22.70 Barrett's esophagus without dysplasia; J30.9 Allergic rhinitis, unspecified; R03.0 Elevated blood-pressure reading, without diagnosis of hypertension; I10 Essential (primary) hypertension | CPT/HCPCS: 83036; 90471; 90656; 99212 ==

== ENCOUNTER 2025-02-12 14:20 | Outpatient (AMB) | payer MEDICARE, SELFPAY ==
--- NOTE | 2025-02-12 14:45 | MHC.OFFVIS ---
Vital Signs 02/12/25 14:46 Height 5 ft 1 in Weight 176 lb BMI 33.3 BP 142/70 H Blood Pressure Location Lt brachial Position Sitting Pulse 72 Pulse Source Pulse Oximeter Pulse Oximetry (%) 98 Oxygen Delivery Method Room Air Intake Visit Reasons: Dyspnea Intake Note: pt is here for follow up and states she is coughing from the throat, using cough med but coughs around the clock Visual Associate Required: No Allergies No Known Allergies [No Known Allergies*] Allergy (Verified 02/12/25 15:13) Medication List - Last Reconciled 02/12/25 by Cassandra De Anda MD albuterol sulfate 90 mcg/actuation 2 puffs inhalation Q4-6H PRN 30 days alprazolam 0.25 mg PO DAILY PRN 90 days atorvastatin 40 mg PO DAILY blood sugar diagnostic ([employer] MatchmakersTouch Ultra Test strips) tests 3X/day calcium carbonate-vitamin D3 600 mg-5 mcg (200 unit) 1 tab PO DAILY cholecalciferol (vitamin D3) 50 mcg PO DAILY fexofenadine (Allergy Relief (fexofenadine)) 180 mg PO DAILY lancets As directed lancets ([employer] Delica Lancets) Test blood sugar twice a day levothyroxine 137 mcg PO QAM lisinopril 5 mg PO DAILY meloxicam 15 mg PO DAILY metformin 500 mg PO BID omeprazole 20 mg PO DAILY OneTouch Ultra Blue Test Strip (blood sugar diagnostic) once a day NS Do you need a note to return to daycare/school/sports/work: No HPI HPI Dyspnea : Details: THIS 74 YEARS OLD VERY PLEASANT FEMALE, SOMEWHAT ANXIOUS, COMES FOR FOLLOW-UP AFTER 6 MONTHS. HER MAIN COMPLAINT IS ONGOING COUGH, OFF AND ON DURING THE DAYTIME BUT MUCH WORSE AT NIGHT. SHE ALSO HAS FREQUENT BOUTS OF SNEEZING. HER COUGH HAS BEEN RELATED TO HER ONGOING NASAL CONGESTION AND POSTNASAL DISCHARGE PATIENT HAS USED FEXOFENADINE 180 MG ONCE A DAY, . NOT USING REGULARLY AT THIS TIME SHE ALSO HAS BEEN ON MONTELUKAST TABLET 10 MG A DAY BUT STOPPED TAKING IT FOR A FEW MONTHS. SHE DOES USE PROAIR 2 PUFFS ONCE IN A WHILE WITHOUT MUCH EFFECT. SHE USES DAYQUIL 1 TSP T.I.D. DURING THE DAYTIME AND NYQUIL 1 OR 2 TSP AT NIGHT, WITHOUT MUCH EFFECT. RECENTLY STARTED ON LISINOPRIL 5 MG A DAY FOR HYPERTENSION, BUT HER COUGH WAS THERE EVEN BEFORE STARTING ON LISINOPRIL. * SHE HAS NOT BEEN ABLE TO PERFORM ADEQUATE EFFORTS FOR SPIROMETRY OR PFT. [facility] Medical History Cough Depression Breast cancer screening by mammogram Allergic rhinitis Chronic cough Breast density Finger pain, left Nasal bone fracture Barretts esophagus Hiatal hernia Urge incontinence Anxiety Hypercholesterolemia Hypothyroidism Impaired glucose tolerance Obesity (BMI 30-39.9) Vitamin D deficiency Osteopenia Surgical History Hx of foot surgery History of bladder surgery Hx of cholecystectomy Family History Father No problems noted. Mother No problems noted. Paternal Grandmother Diabetes mellitus Social History Housing: Apartment Alcohol intake: never Patient Tobacco Use Status: Former Tobacco user Tobacco use type: Cigarette Years Smoked: 1982 e-Cigarette/Vaping Use: Never Used Second Hand Smoke Exposure: No service: No Current occupational status: disabled Cognitive needs: Yes Hearing needs: Yes (hearing aids) Vision needs: Yes (glasses ) Review of Systems Const All systems reviewed & are unremarkable except as noted in HPI and below Eyes Reports no additional complaints ENT Reports nasal congestion and Reports nasal discharge (Mild off and) Card Denies chest pain, Denies irregular heart rhythm and Denies lightheadedness Resp Reports as per HPI GI Reports heartburn (Controlled) Reports no additional complaints Musc Reports no additional complaints Skin/Breast Reports system reviewed and no additional complaints, except as documented Neuro Reports no additional complaints Psych Reports anxiety (Mild) Endo Reports other (Diabetes mellitus) Aller/Immun Reports no additional complaints Physical Exam Vital Signs: Last Vital Signs Pulse 72 02/12/25 14:46 BP 142/70 H 02/12/25 14:46 Pulse Ox 98 02/12/25 14:46 Oxygen Delivery Method Room Air 02/12/25 14:46 BMI result Body Mass Index 33.3 Const General: comfortable, no acute distress, alert and awake Orientation/consciousness: patient oriented x3 HEENT Head: Yes normal to inspection General nose exam: No nasal polyps present, No nasal discharge present and Other nasal findings present (Mild bilateral nasal congestion) Face and sinus: Yes sinuses nontender Mouth: oropharynx normal Throat: Yes posterior oropharynx normal Eyes General: appearance normal, both eyes and all related structures Neck Neck: Yes normal visual inspection, Yes no lymphadenopathy, Yes trachea midline and Yes no JVD Thyroid: Thyroid normal Chest Chest palpation & inspection: normal inspection of the chest, normal palpation of entire chest wall and no tenderness Resp Effort & Inspection: normal respiratory effort Auscultation: clear to auscultation bilaterally, no crackles, no rales and no wheezes Cardio Palpation: normal PMI Rate: regular rate Rhythm: regular rhythm Heart sounds: no gallops and no murmurs Peripheral pulses: Peripheral pulses 2+ throughout GI Palpation (GI): Soft to palpation, nontender, No hepatosplenomegaly present and no masses Auscultation: normal bowel sounds Back/Spine/Pelvis Thoracic/Lumbar Spine: thoracic and lumbar spine normal to inspection Skin General skin exam: no rashes or lesions noted Neuro General: patient oriented x3 and no focal motor deficits Cranial nerves: Yes CN's II-XII intact bilaterally Extrem General: Yes normal to inspection, Yes no clubbing, cyanosis or edema and Yes no calf tenderness Psych Appearance: grossly normal and well kempt Speech and movement: Normal speech and movement present Assessment & Plan Assessment & Plan (1) Cough: Comment: Chronic cough which flares up with the upper airways allergy problem, especially nasal congestion and postnasal drip. Seems to be related to chronic allergic rhinitis, Lately her cough is worse especially at night. Using DayQuil and NyQuil syrup does not control her cough. She is not using fexofenadine regularly and also has stopped using the montelukast. Recently started on lisinopril 5 mg a day, which is not the cause of for cough but may aggravate the cough. Code(s): R05 - Cough Category: Medical Plan: I will change lisinopril to losartan 25 mg daily Advised to use fexofenadine 180 mg once a day. Use ordinary cough drops to keep in mouth to ease the cough. Will prescribe guaifenesin with codeine syrup to use 2 tsp at nighttime . Still can use albuterol HFA 2 puffs Q 6 hours p.r.n. if the cough is worse and uncontrollable. (2) Allergic rhinitis: Comment: [place] : HAS LONGSTANDING HISTORY OF HER RECURRENT NASAL CONGESTION AND POSTNASAL DRIP, SECONDARY TO ALLERGIC RHINITIS. IT FLARES UP IN CERTAIN SEASONS. Code(s): J30.9 - Allergic rhinitis, unspecified Category: Medical Plan: Advised to use fexofenadine 180 mg once a day, whenever there is increased nasal congestion. Medications: New codeine-guaifenesin 10-100 mg/5 mL 10 mL PO Q4-6H 30 days PRN 200 mL 2RF Resistant Cough losartan 25 mg PO DAILY 30 days 30 tabs 3RF Hypertension . Refilled albuterol sulfate 90 mcg/actuation 2 puffs inhalation Q4-6H 30 days PRN 8.5 grams 3RF shortness of breath or wheezing/cough R05 - Cough Coding Level of Care Code Est Pt Level 3 (27890) Diagnoses Cough R05 Allergic rhinitis J30.9
[2025-02-12 14:46] VITALS: BP 142/70; PULSE 72; O2SAT 98; BMI 33.3
== END 2025-02-12 15:13 | disposition home or self-care (01) ==
LOC: HO.HPS 14:20
PROVIDERS: PCP Internal Medicine; Visit Provider Internal Medicine
DX: R05.9 Cough, unspecified (principal); J30.9 Allergic rhinitis, unspecified
CPT/HCPCS: 99213

== ENCOUNTER → 2025-02-12 14:20 | Outpatient (BNVA) | payer MEDICARE, SELFPAY | PROVIDERS: PCP Internal Medicine; Visit Provider Internal Medicine | DX: R05.9 Cough, unspecified (principal); J30.9 Allergic rhinitis, unspecified | CPT/HCPCS: 99212 ==

== ENCOUNTER 2025-03-18 08:03 | Outpatient (AMB) | payer MEDICARE, SELFPAY ==
[2025-03-18 08:07] VITALS: BP 128/72; PULSE 74; O2SAT 97; BMI 31.6
--- NOTE | 2025-03-18 08:07 | MHC.PC.OV ---
Vital Signs 03/18/25 08:07 Height 5 ft 1 in Weight 167 lb BMI 31.6 BP 128/72 Blood Pressure Location Lt brachial Position Sitting Pulse 74 Pulse Source Pulse Oximeter Pulse Oximetry (%) 97 Oxygen Delivery Method Room Air Intake Visit Reasons: Cough follow up Allergies No Known Allergies [No Known Allergies*] Allergy (Verified 03/18/25 08:07) Tobacco use date assessed: 12/31/24 Fall risk assessment: 1 Fall in past year (Fell backwards out of the tub) Last assessed Fall Risk: 03/18/25 Dental Screening Dental Screen Date: 12/31/24 HPI Cough follow up HPI Details fall tub, has R arm laceration. [facility] Medical History (Updated 03/18/25 @ 08:50 by Shauna Rodriguez MD) Impaired glucose tolerance Blood pressure elevated without history of HTN Cough Depression Breast cancer screening by mammogram Allergic rhinitis Chronic cough Breast density Finger pain, left Nasal bone fracture Barretts esophagus Hiatal hernia Urge incontinence Anxiety Hypercholesterolemia Hypothyroidism Obesity (BMI 30-39.9) Vitamin D deficiency Osteopenia Surgical History Hx of foot surgery History of bladder surgery Hx of cholecystectomy Family History Father No problems noted. Mother No problems noted. Paternal Grandmother Diabetes mellitus Social History Housing: Apartment Alcohol intake: never Patient Tobacco Use Status: Former Tobacco user Tobacco use type: Cigarette Years Smoked: quit 1982 e-Cigarette/Vaping Use: Never Used Second Hand Smoke Exposure: No service: No Current occupational status: disabled Cognitive needs: Yes Hearing needs: Yes (hearing aids) Vision needs: Yes (glasses ) Questionnaire PHQ-9 Over the last 2 weeks, how often have you been bothered by any of the following problems? 1. Little interest or pleasure in doing things: more than half the days 2. Feeling down, depressed, or hopeless: several days 3. Trouble falling or staying asleep, or sleeping too much: not at all 4. Feeling tired or having little energy: more than half the days 5. Poor appetite or overeating: not at all 6. Feeling bad about yourself - or that you are a failure or have let yourself or your family down: several days 7. Trouble concentrating on things, such as reading the newspaper or watching television: several days 8. Moving or speaking so slowly that other people could have noticed. Or the opposite - being so fidgety or restless that you have been moving around a lot more than usual: several days 9. Thoughts that you would be better off or of hurting yourself in some way: not at all Total score: 8 Depression Screening Interpretation: Positive Depression Screening Done: Yes Source: Developed by Drs. Mor Miller, Samara Stack, Newton Logan and colleagues, with an educational adriane from [employer] [facility]. Thrive Questionnaire Date Thrive assessed: 12/31/24 I am a: Patient What is your living situation today?: I have a steady place to live Within the past 12 months, did the food you bought not last and you didn't have the money to get more?: Never true Within the past 12 months, did you worry whether your food would run out before you got money to buy more?: Never true Do you have trouble paying for medicines?: No Do you have trouble getting transportation to medical appointments?: No Do you have trouble paying your heating and electricity bill?: No Do you have trouble taking care of your child, family member or friend?: No Do you have trouble with day-to-day activities such as bathing, preparing meals, shopping, managing finances, etc.?: No Are you currently unemployed and looking for a job?: Yes Are you interested in more education?: No Please select the resources that you would like help with: None Currently or been in a relationship where the following occur: No concerns reported THRIVE Score: 0 AUDIT C Alcohol Use Questionnaire (AUDIT-C) 1. How often do you have a drink containing alcohol?: Never Total Score: 0 THUY-7 AMB Questionnaire THUY-7 Date THUY - 7 assessed: 12/31/24 Feeling nervous, anxious, or on edge: 1 = Several days Not being able to stop or control worryin = Several days Worrying too much about different things: 1 = Several days Trouble relaxin = Not at all Being so restless that it is hard to sit still: 1 = Several days Becoming easily annoyed or irritable: 0 = Not at all Feeling afraid as if something awful might happen: 0 = Not at all Total THYU-7 score (0-4 normal; 5-9 mild; 10-14 moderate; 15-21 severe): 4 Source: Developed by Drs. Mor Miller, Samara Stack, Newton Logan and colleagues, with an educational adriane from [employer] [facility]. Physical exam (Primary Care) Vital Signs: Last Vital Signs Pulse 74 03/18/25 08:07 BP 128/72 03/18/25 08:07 Pulse Ox 97 03/18/25 08:07 Oxygen Delivery Method Room Air 03/18/25 08:07 BMI result Body Mass Index 31.6 Tobacco/Smoking Status: Tobacco use Status Tobacco use date assessed 12/31/24 03/18/25 08:08 Patient Tobacco Use Status Former Tobacco user 03/18/25 08:08 Tobacco use type Cigarette 03/18/25 08:08 e-Cigarette/Vaping Use Never Used 03/18/25 08:08 PHQ-9: PHQ-9 Score PHQ-9: Total score 8 03/18/25 08:25 Depression Screening Interpretation: Positive Thrive Assessment: Date of Thrive Assessment Date Thrive assessed 12/31/24 03/18/25 08:08 Currently or been in a relationship where the following occur: No concerns reported Const General: alert; No acute distress Eyes Conjunctivae: conjunctivae normal Resp Auscultation: clear to auscultation bilaterally Cardio Rate: regular rate Rhythm: regular rhythm GI Inspection: Yes normal to inspection Extrem General: Yes normal to inspection and No edema Results AMB Hemoglobin A1c AMB Hemoglobin A1c 5.7 % Last Edit by Natasha Mendoza CMA on 03/18/25 08:26 Results Reviewed Results Reviewed: Laboratory Last Values Hgb A1c (Clinic) 5.7 % (4.0-6.0) 03/18/25 08:09 Coding Level of Care Code Est Pt Level 4 (09925) Complex EM visit Add On G2211 Diagnoses Type 2 diabetes mellitus with hyperglycemia E11.65 Hypertension I10 Cough R05 Obesity (BMI 30-39.9) E66.9 Hypercholesterolemia E78.00 Acquired hypothyroidism E03.9 Hypothyroidism type: acquired 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 K22.70 Pinto's esophagus type: without dysplasia Assessment & Plan Assessment & Plan (1) Type 2 diabetes mellitus with hyperglycemia: Comment: [facility] Code(s): E11.65 - Type 2 diabetes mellitus with hyperglycemia Category: Medical Plan: Decrease the amount of carbohydrate intake, pasta, bread, rice and potatoes are all sugar and that is aside from all the sweet stuff, remember that fruits are good but they are Sweet also. Hemoglobin A1c goal of less than 7.0 patient is on metformin 500 mg twice a day (2) Hypertension: Code(s): I10 - Essential (primary) hypertension Category: Medical Plan: Continue with blood pressure medication. Decrease salt intake and exercise with the ongoing cough lisinopril was changed to losartan 25 mg once a day (3) Cough: Comment: Chronic cough which flares up with the upper airways allergy problem, especially nasal congestion and postnasal drip. Seems to be related to chronic allergic rhinitis, Lately her cough is worse especially at night. Using DayQuil and NyQuil syrup does not control her cough. She is not using fexofenadine regularly and also has stopped using the montelukast. Recently started on lisinopril 5 mg a day, which is not the cause of for cough but may aggravate the cough. Code(s): R05 - Cough Category: Medical Plan: Patient has seen Pulmonary and discussed about chronic allergic rhinitis and to prevent exacerbation from the medication, lisinopril was changed to losartan (4) Obesity (BMI 30-39.9): Code(s): E66.9 - Obesity, unspecified Category: Medical Plan: Diet and exercise (5) Hypercholesterolemia: Code(s): E78.00 - Pure hypercholesterolemia, unspecified Category: Medical Plan: Avoid fried foods, chicken skin, eggs, butter margarine, pastries and meat. Be it pork or beef they have a lot of cholesterol patient needs blood work. LDL goal of less than 100 and triglyceride of less than 150 patient on atorvastatin 40 mg once a day (6) Hypothyroidism: Code(s): E03.9 - Hypothyroidism, unspecified Category: Medical Qualifiers: Hypothyroidism type: acquired Qualified Code(s): E03.9 - Hypothyroidism, unspecified Plan: Continue with thyroid medication patient needs blood work (7) Barretts esophagus: Code(s): K22.70 - 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 Category: Medical Qualifiers: Pinto's esophagus type: without dysplasia Qualified Code(s): K22.70 - 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 Plan: Avoid the foods that causes that usually spicy foods, tomato products, juices, coffee, soda and foods that your sensitive to. After eating do not lie down, allow 3-4 hours before in lie down. And keep the head of bed above 30 degrees to avoid the acid from going up. Plan History of Present Illness The patient is a 74-year-old female presenting for a follow-up visit to manage her chronic health conditions, specifically diabetes mellitus, hypertension, and chronic allergic rhinitis. Her recent laboratory results indicate an HbA1c level of 6.6%, confirming the presence of diabetes mellitus and prompting a management strategy to maintain this level below 7.0%. She has commenced metformin for glycemic control. Her hypertension is currently managed with a recent switch from lisinopril to losartan, addressing a chronic cough potentially induced by the former. For her chronic allergic rhinitis, she continues on fexofenadine, though she stopped montelukast. Her weight has decreased by 9 pounds since her last visit in December 2024 without a noted change in diet or activity level. The patient's comprehensive health history remains extensive, including prior diagnoses of impaired glucose tolerance, hypothyroidism, hypercholesterolemia, and more, underlining a complex management approach involving dietary, medication, and lifestyle interventions. Health Maintenance - Mammogram and bone density test are up to date as of December 2023. - The patient is up to date on tetanus and pneumonia vaccinations. - Recommended to receive the shingles vaccine available at the pharmacy. - Regular eye exams recommended due to diabetes status. - Blood work emphasized for cholesterol and glucose monitoring. Social History - Reports diet includes regular food and cheese, but cautioned regarding snack intake. - Suggested maintaining regular dietary habits and sufficient hydration. - Encouraged to stay active and maintain movement for blood sugar control and overall health. - Indicates the need for homemodification with the installation of a stand-up shower to prevent falls. Review of Systems - Constitutional: Reports recent weight loss. - Respiratory: Denies shortness of breath; reports chronic cough, attributed to allergy problems. - Endocrine: Reports weight loss without appetite changes. - Allergic/Immunologic: Reports nasal congestion and postnasal drip. Physical Exam - Musculoskeletal- Reports fall in the bathtub with minor back impact; no head injury. Results - Labs: Hemoglobin A1c was 6.6% as of January 2024. Plan 1. 0 through the use of metformin and adequate lifestyle changes. A substitution to losartan from lisinopril will aid in the management of hypertension, aiming to alleviate the chronic cough. Continuous use of fexofenadine for allergic rhinitis is stressed, and attention to diet and exercise is necessary to support weight management and overall health. Avoiding further falls is emphasized through lifestyle adaptations, while vaccinations and screenings remain a priority. Regular blood work and adherence to prescribed statin therapy are crucial elements of her ongoing care.: Patient was informed and verbally consented to the use of an ambient scribe for clinic note documentation during this visit. Discussion Notes I have discussed the importance of managing diabetes, hypertension, and respiratory issues with the patient, emphasizing the benefits of medication adherence and regular health screenings. For diabetes management, we focused on maintaining an HbA1c below 7.0 and encouraged continued use of metformin and lifestyle revisions for better glycemic control. The medication change from lisinopril to losartan was explained to alleviate any potential medication-induced coughing, which had been complicating her allergy symptoms. The necessity of regular intake of allergy medications like fexofenadine was underscored. I explained the preventive role of vaccinations and the need for consistent follow-up on eye health due to her diabetic condition. Lifestyle modifications such as diet and exercise were emphasized as crucial for overall wellness and specifically for cholesterol management. The patient has been informed about the necessity of blood work and reporting of any significant health changes, such as her fall risk, which was addressed through discussions about home modifications and safety precautions. Patient Instructions - Continue taking metformin 500 mg twice daily for diabetes management. - Take losartan 25 mg daily to control blood pressure. - Continuously take fexofenadine daily for allergy symptoms. - Engage in a regular exercise routine and follow a healthy diet. - Obtain the shingles vaccine at the pharmacy. - Schedule and complete recommended blood work. - Attend regular eye exams and report findings to my office. - Implement safety measures at home to prevent falls. - Maintain hydration and eat regularly to preserve strength and nutrition. Orders: Orders AMB Hemoglobin A1c Today Z13.9 - Encounter for screening, unspecified Referrals Podiatry Referral E11.65 - Type 2 diabetes mellitus with hyperglycemia Medications: Discontinued lisinopril Discontinued Reason: Doctor's Order 5 mg PO DAILY 90 tabs 0RF I10 - Essential (primary) hypertension
== END 2025-03-18 08:59 | disposition home or self-care (01) ==
LOC: HO.HMCH 08:04
PROVIDERS: PCP Internal Medicine; Visit Provider Internal Medicine
DX: E11.65 Type 2 diabetes mellitus with hyperglycemia (principal); R05.9 Cough, unspecified; E66.9 Obesity, unspecified; Z68.31 Body mass index [BMI] 31.0-31.9, adult; I10 Essential (primary) hypertension; E78.00 Pure hypercholesterolemia, unspecified; E03.9 Hypothyroidism, unspecified; K22.70 Barrett's esophagus without dysplasia

== ENCOUNTER → 2025-03-18 08:03 | Outpatient (BNVA) | payer MEDICARE, SELFPAY | PROVIDERS: PCP Internal Medicine; Visit Provider Internal Medicine | DX: E11.65 Type 2 diabetes mellitus with hyperglycemia (principal); I10 Essential (primary) hypertension; R05.9 Cough, unspecified; E66.9 Obesity, unspecified; E78.00 Pure hypercholesterolemia, unspecified; E03.9 Hypothyroidism, unspecified; K22.70 Barrett's esophagus without dysplasia; Z79.84 Long term (current) use of oral hypoglycemic drugs; Z79.899 Other long term (current) drug therapy | CPT/HCPCS: 83036; 99212 ==

== ENCOUNTER 2025-04-11 09:43 | Outpatient (AMB) | payer MEDICARE, SELFPAY ==
[2025-04-11 09:50] VITALS: BP 140/68; PULSE 90; TEMP 36.2; O2SAT 98; BMI 30.8
--- NOTE | 2025-04-11 09:50 | A.OFFPC_ITS ---
Vital Signs 04/11/25 09:50 Height 5 ft 1 in Weight 163 lb 4 oz BMI 30.8 BP 140/68 H Blood Pressure Location Lt brachial Position Sitting Pulse 90 Pulse Source Pulse Oximeter Temp 97.1 F Temp Source Temporal Artery Scan Pulse Oximetry (%) 98 Oxygen Delivery Method Room Air Intake Visit Reasons: DM, HTN Superintendent Distribution Required: No Accompanied by: Brother Allergies No Known Allergies [No Known Allergies*] Allergy (Verified 04/11/25 10:17) Medication List - Last Reconciled 04/11/25 by Shauna Rodriguez MD albuterol sulfate 90 mcg/actuation 2 puffs inhalation Q4-6H PRN 30 days alprazolam 0.25 mg PO DAILY PRN 90 days atorvastatin 40 mg PO DAILY blood sugar diagnostic (Liquid Scenariosuch Ultra Test strips) tests 3X/day calcium carbonate-vitamin D3 600 mg-5 mcg (200 unit) 1 tab PO DAILY cholecalciferol (vitamin D3) 50 mcg PO DAILY fexofenadine (Allergy Relief (fexofenadine)) 180 mg PO DAILY lancets As directed lancets (ULTRA Testing Delica Lancets) Test blood sugar twice a day levothyroxine 137 mcg PO QAM losartan 25 mg PO DAILY 30 days meloxicam 15 mg PO DAILY metformin 500 mg PO BID omeprazole 20 mg PO DAILY OneTouch Ultra Blue Test Strip (blood sugar diagnostic) once a day NS Tobacco use date assessed: 04/11/25 Fall risk assessment: 1 Fall in past year Last assessed Fall Risk: 04/11/25 Dental Screening Dental Screen Date: 04/11/25 Did you have a dental visit in the last 12 months?: No Did you have a dental problem in the last 6 months where you did not have access to dental care?: No Was dental information given to patient?: No [facility] Medical History (Updated 03/18/25 @ 08:50 by Shauna Rodriguez MD) Impaired glucose tolerance Blood pressure elevated without history of HTN Cough Depression Breast cancer screening by mammogram Allergic rhinitis Chronic cough Breast density Finger pain, left Nasal bone fracture Barretts esophagus Hiatal hernia Urge incontinence Anxiety Hypercholesterolemia Hypothyroidism Obesity (BMI 30-39.9) Vitamin D deficiency Osteopenia Surgical History Hx of foot surgery History of bladder surgery Hx of cholecystectomy Family History Father No problems noted. Mother No problems noted. Paternal Grandmother Diabetes mellitus Social History Housing: Apartment Alcohol intake: never Patient Tobacco Use Status: Never used Tobacco Tobacco use type: Cigarette Years Smoked: quit 1982 e-Cigarette/Vaping Use: Never Used Second Hand Smoke Exposure: No service: No Current occupational status: disabled Cognitive needs: Yes Hearing needs: Yes (hearing aids) Vision needs: Yes (glasses ) Questionnaire PHQ-9 Over the last 2 weeks, how often have you been bothered by any of the following problems? 1. Little interest or pleasure in doing things: more than half the days 2. Feeling down, depressed, or hopeless: several days 3. Trouble falling or staying asleep, or sleeping too much: not at all 4. Feeling tired or having little energy: more than half the days 5. Poor appetite or overeating: not at all 6. Feeling bad about yourself - or that you are a failure or have let yourself or your family down: several days 7. Trouble concentrating on things, such as reading the newspaper or watching television: several days 8. Moving or speaking so slowly that other people could have noticed. Or the opposite - being so fidgety or restless that you have been moving around a lot more than usual: several days 9. Thoughts that you would be better off or of hurting yourself in some way: not at all Total score: 8 Depression Screening Interpretation: Positive Depression Screening Done: Yes 68373 - PHQ-9 Billing: Yes Source: Developed by Drs. Mor Miller, Samara Stack, Newton Logan and colleagues, with an educational adriane from [employer]. Thrive Questionnaire Date Thrive assessed: 04/11/25 I am a: Patient What is your living situation today?: I have a steady place to live Within the past 12 months, did the food you bought not last and you didn't have the money to get more?: Never true Within the past 12 months, did you worry whether your food would run out before you got money to buy more?: Never true Do you have trouble paying for medicines?: No Do you have trouble getting transportation to medical appointments?: No Do you have trouble paying your heating and electricity bill?: No Do you have trouble taking care of your child, family member or friend?: No Do you have trouble with day-to-day activities such as bathing, preparing meals, shopping, managing finances, etc.?: No Are you currently unemployed and looking for a job?: Yes Are you interested in more education?: No Please select the resources that you would like help with: None Currently or been in a relationship where the following occur: No concerns reported THRIVE Score: 0 AUDIT C Alcohol Use Questionnaire (AUDIT-C) 1. How often do you have a drink containing alcohol?: Never Total Score: 0 THUY-7 AMB Questionnaire THUY-7 Date THUY - 7 assessed: 04/11/25 Feeling nervous, anxious, or on edge: 1 = Several days Not being able to stop or control worryin = Several days Worrying too much about different things: 1 = Several days Trouble relaxin = Not at all Being so restless that it is hard to sit still: 1 = Several days Becoming easily annoyed or irritable: 0 = Not at all Feeling afraid as if something awful might happen: 0 = Not at all Total THUY-7 score (0-4 normal; 5-9 mild; 10-14 moderate; 15-21 severe): 4 Source: Developed by Drs. Mor Miller, Samara Stack, Newton Logan and colleagues, with an educational adriane from [employer]. THUY-7 Assessment Billing THUY-7 Assessment Tool: THUY-7 Assessment 32678 Physical exam (Primary Care) Vital Signs: Last Vital Signs Temp 97.1 F 04/11/25 09:50 Pulse 90 04/11/25 09:50 BP 140/68 H 04/11/25 09:50 Pulse Ox 98 04/11/25 09:50 Oxygen Delivery Method Room Air 04/11/25 09:50 BMI result Body Mass Index 30.8 Tobacco/Smoking Status: Tobacco use Status Tobacco use date assessed 04/11/25 04/11/25 10:07 Patient Tobacco Use Status Never used Tobacco 04/11/25 10:25 Tobacco use type Cigarette 04/11/25 09:50 e-Cigarette/Vaping Use Never Used 04/11/25 09:50 PHQ-9: PHQ-9 Score PHQ-9: Total score 8 04/11/25 10:46 Depression Screening Interpretation: Positive Thrive Assessment: Date of Thrive Assessment Date Thrive assessed 04/11/25 04/11/25 10:07 Currently or been in a relationship where the following occur: No concerns reported Const General: alert; No acute distress Eyes Conjunctivae: conjunctivae normal Resp Auscultation: clear to auscultation bilaterally Cardio Rate: regular rate Rhythm: regular rhythm GI Inspection: Yes normal to inspection Extrem General: Yes normal to inspection and No edema Coding Level of Care Code Est Pt Level 4 (41557) Complex EM visit Add On G2211 Diagnoses Type 2 diabetes mellitus with hyperglycemia E11.65 Hypertension I10 Hypercholesterolemia E78.00 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 K22.70 Pinto's esophagus type: without dysplasia Obesity (BMI 30-39.9) E66.9 Additional Codes THUY-7 Assessment Billing - THUY-7 Assessment Tool: THUY-7 Assessment 72801 ([id number]) PHQ-9 - 07949 - PHQ-9 Billing: Yes ([id number]) Assessment & Plan Assessment & Plan (1) Type 2 diabetes mellitus with hyperglycemia: Comment: [facility] Code(s): E11.65 - Type 2 diabetes mellitus with hyperglycemia Category: Medical Plan: Decrease the amount of carbohydrate intake, pasta, bread, rice and potatoes are all sugar and that is aside from all the sweet stuff, remember that fruits are good but they are Sweet also. Hemoglobin A1c goal of less than 7.0 patient is on metformin and is at goal March 2025 hemoglobin A1c was 6.2 (2) Hypertension: Code(s): I10 - Essential (primary) hypertension Category: Medical Plan: Continue with blood pressure medication. Decrease salt intake and exercise on losartan 25 mg once a day (3) Hypercholesterolemia: Code(s): E78.00 - Pure hypercholesterolemia, unspecified Category: Medical Plan: Avoid fried foods, chicken skin, eggs, butter margarine, pastries and meat. Be it pork or beef they have a lot of cholesterol patient needs blood patient is on atorvastatin 40 mg once (4) Barretts esophagus: Code(s): K22.70 - 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 Category: Medical Qualifiers: Pinto's esophagus type: without dysplasia Qualified Code(s): K22.70 - 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 Plan: Avoid the foods that causes that usually spicy foods, tomato products, juices, coffee, soda and foods that your sensitive to. After eating do not lie down, allow 3-4 hours before in lie down. And keep the head of bed above 30 degrees to avoid the acid from going up. (5) Obesity (BMI 30-39.9): Code(s): E66.9 - Obesity, unspecified Category: Medical Plan: Diet and exercise Plan History of Present Illness The patient is a 74-year-old female presenting due to the evaluation and management of her chronic conditions. She has a history of obesity, Pinto's Esophagus, hypercholesterolemia, hypothyroidism, osteopenia, depression, and diabetes mellitus. Recent Hemoglobin A1c readings indicate good diabetic control. She has experienced a 4-pound weight loss. Her last bone density test was in December 2023, and her mammogram in November 2024 and diabetic eye exam on March 07, 2025, were normal. The patient takes multiple medications, including atorvastatin, losartan, and metformin, among others. Bowel movement concerns were noted, though not detailed as to constipation or diarrhea. Health Maintenance - Mammogram: November 2024, normal - Bone Density Test: Last performed December 2023 - Hemoglobin A1c: 6.2 as of March 2025 - Diabetic Eye Exam: Completed March 07, 2025, normal - Colonoscopy scheduled for next year - Encouragement of exercise contributing to 4-pound weight loss Social History - Lives with her daughter and granddaughter - Drinks coffee and diet coke, limited water intake - Engages in exercise at least once a week - No employment or educational details discussed - Functions independently with assistance from family members Review of Systems - General: Reports 4-pound weight loss - Gastrointestinal: Reports difficulty with bowel movements - Cardiovascular: Denies symptoms not further specified Physical Exam Results - Labs: Hemoglobin A1c 6.2 as of March 2025 - Tests and diagnostics: Mammogram (November 2024, normal); Bone Density Test (December 2023); Diabetic Eye Exam (March 07, 2025, normal) Plan 1. 0. Hypertension management includes losartan 25 mg. For hypercholesterolemia, atorvastatin 40 mg is continued, with a fasting blood test planned for reevaluation. The patient is advised to stay physically active and hydrate adequately to address bowel concerns. Upcoming eye exams and a planned colonoscopy are part of the ongoing management and monitoring plan.: Patient was informed and verbally consented to the use of an ambient scribe for clinic note documentation during this visit. Discussion Notes I discussed with the patient the importance of maintaining controlled blood glucose levels, acknowledging good results with a Hemoglobin A1c of 6.2. The need for fasting blood work to evaluate cholesterol and renal function due to current medication use was emphasized. I advised continuing losartan 25 mg for hypertension, and atorvastatin 40 mg for lipid control, noting the importance of regular exercise and healthy diet. Increased water intake was suggested to assist with bowel regularity issues. We also discussed upcoming scheduling for a colonoscopy and an annual follow-up for eye health. The patient was reminded about the benefits of additional vaccinations, such as the shingles vaccine, though it is not mandated. Patient Instructions - Continue taking all prescribed medications as directed. - Make sure to drink plenty of water daily. - Follow up with fasting blood work as scheduled. - Maintain regular physical activity. - Monitor blood pressure regularly. - Schedule and attend upcoming health screenings as planned. - Consider getting the shingles vaccine, if interested. - Report any new symptoms or concerns immediately. Medications: Refilled losartan 25 mg PO DAILY 30 tabs 3RF Hypertension . 30 days
--- OUTSIDE RECORDS SUMMARY | 2025-04-11 10:20 | XMS_ITS | Patient Health Record ---
Author Organization [facility] Address [address] [facility] [place] [address] Care Team Providers Care Handbag Operator Name Role Phone Shauna Rodriguez Primary Care Provider Abhilash Ramsey Unavailable [phone] Reason For Referral No Information Medications Medication SIG (Take, Route, Fr equency, Duration) Notes Start Date End Date Status Omeprazole 20 mg once a day Ac tive Levothyroxine Sodium Active Vitamin D3 2000 units 1 capsule Orally O nce a day for 30 day(s) Active Zocor 40 mg Active Enablex 7.5 MG 1 tablet with liquid Orally Once a day for 30 day(s) Active Problems Problem Type SNOMED Code ICD Code Onset Dates Problem Status W/U Status Risk Notes Problem Contusion of toe (924.3) Active confirmed Plan Of Treatment Pending Test Test Name Order Date X ray : Foot, right 3V 10/10/2012 Insurance Providers Payer Name Payer Address Payer Phone Subscriber Number Group Number Insured Name Patient Relationship to Insured Coverage Start Date Coverage End Date [facility] [address] [place] [address] [id number] NICHOLE MARLEY Self - patient is the insured Medical (General) History Medical History History ICD Code thyroid disorder reflux gall bladder problems chicken pox back, hip, knee pain cholesterol Surgical History Surgery Date(Month/Year) cholecystectomy foot surgery 2002
== END 2025-04-11 11:08 | disposition home or self-care (01) ==
LOC: HO.HMCH 09:44
PROVIDERS: PCP Internal Medicine; Visit Provider Internal Medicine
DX: E11.65 Type 2 diabetes mellitus with hyperglycemia (principal); I10 Essential (primary) hypertension; E66.9 Obesity, unspecified; Z68.30 Body mass index [BMI] 30.0-30.9, adult; E78.00 Pure hypercholesterolemia, unspecified; K22.70 Barrett's esophagus without dysplasia

== ENCOUNTER → 2025-04-11 09:43 | Outpatient (BNVA) | payer MEDICARE, SELFPAY | PROVIDERS: PCP Internal Medicine; Visit Provider Internal Medicine | DX: E11.65 Type 2 diabetes mellitus with hyperglycemia (principal); I10 Essential (primary) hypertension; E78.00 Pure hypercholesterolemia, unspecified; K22.70 Barrett's esophagus without dysplasia; E66.9 Obesity, unspecified; E03.9 Hypothyroidism, unspecified; F32.A Depression, unspecified; Z68.30 Body mass index [BMI] 30.0-30.9, adult | CPT/HCPCS: 96127; 99212 ==

== ENCOUNTER 2025-04-16 07:58 | Outpatient (REF) | payer MEDICARE, SELFPAY ==
--- OUTSIDE RECORDS SUMMARY | 2025-04-16 08:02 | XMS_ITS | Patient Health Record ---
Author Organization [facility] Address [address] [facility] [place] [address] Care Team Providers Care Sterilisation Technician Name Role Phone Shauna Rodriguez Primary Care Provider Abhilash Ramsey Unavailable [phone] Reason For Referral No Information Medications Medication [...] Status Risk Notes Problem Contusion of toe (81935130) Contusion of toe (924.3) Active confirmed Plan Of Treatment Pending Test Test Name Order Date X ray : Foot, right 3V 10/10/2012 Insurance Providers Payer Name Payer Address Payer Phone Subscriber Number Group Number Insured Name Patient Relationship to Insured Coverage Start Date Coverage End Date [facility] [address] [place] [address] [id number] NICHOLE MARLEY Self - patient is the insured Medical (General) History Medical History History ICD Code thyroid disorder reflux gall bladder problems chicken pox back, hip, knee pain cholesterol Surgical History Surgery Date(Month/Year) cholecystectomy foot surgery 2002
[2025-04-16 08:20] LABS: MANUAL DIFF FLAG NO
[2025-04-16 09:24] LABS: Basophils Percent Auto 0.6 % (0-2); Eosinophils Absolute Auto 0.2 X10*3/uL (0.0-0.4); Eosinophils Percent Auto 3.3 % (0-4); Hematocrit 43.1 % (37.0-47.0); Hemoglobin 14.1 g/dl (12.0-16.0); Imm Gran Abs Auto 0.01 X10*3/uL (0.00-0.03); Imm Gran Pct Auto 0.2 % (0.0-0.4); Lymphocytes Absolute Auto 1.4 X10*3/uL (1.2-4.9); Lymphocytes Percent Auto 26.1 % (20-40); Mean Corpuscular HGB Conc 32.7 g/dl (31.0-35.0); Mean Corpuscular Hemoglobin 29.3 pg (27.0-33.0); Mean Corpuscular Volume 89.6 fL (80.0-98.0); Mean Platelet Volume 10.9 fL (9.4-12.3); Monocytes Absolute Auto 0.4 X10*3/uL (0.1-1.2); Monocytes Percent Auto 7.2 % (2-11); Neutrophils Absolute Auto 3.4 x10*3/uL (2.0-8.3); Neutrophils Percent Auto 62.6 % (45-73); Platelet Count 252 X10*3/uL (160-400); Red Blood Count 4.81 X10*6/uL (4.20-5.50); Red Cell Distribution Width 12.3 % (11.0-16.0); White Blood Count 5.5 X10*3/uL (4.8-10.8)
[2025-04-16 09:43] LABS: Alanine Aminotransferase 21 U/L (0-31); Albumin Level 4.2 g/dL (3.5-5.0); Alkaline Phosphatase 92 U/L (39-117); Anion Gap 10 (12-20); Aspartate Amino Transferase 28 U/L (5-31); Bilirubin Total 0.3 mg/dL (0.0-1.0); Blood Urea Nitrogen 19 mg/dL (9-16); Carbon Dioxide 30 mmol/L (22-29); Chloride 105 mmol/L (96-108); Cholesterol 101 mg/dL (<200); Estimated Glomerular Filt Rate > 60; Glucose Random 104 mg/dL (60-115); HDL Cholesterol 31 mg/dL (>40); LDL Cholesterol Calculated 50 mg/dL (<100); Potassium 4.4 mmol/L (3.3-5.1); Sodium 141 mmol/L (135-145); Total Protein 7.2 g/dL (6.5-8.0); Triglycerides 103 mg/dL (<150)
[2025-04-16 09:44] LABS: Estimated Average Glucose 128 mg/dL; Hemoglobin A1c % 6.1 % (<6.0)
[2025-04-16 10:05] LABS: Free T4 (Free Thyroxine) 1.58 ng/dL (0.71-1.85); Thyroid Stimulating Hormone 0.22 uIU/mL (0.32-4.0)
[2025-04-16 10:28] LABS: Folate 5.7 ng/mL (> or = 4.0); Vitamin B12 > 2000 pg/mL (200-900)
[2025-04-16 10:37] LABS: Creatinine Urine 157.29 mg/dL; Microalbum/Creatinine Ratio Ur 7.6 ug/mg cr (<30)
== END 2025-04-16 07:59 | disposition home or self-care (01) ==
LOC: HO.LAB 07:58
PROVIDERS: PCP Internal Medicine; Visit Provider Internal Medicine
DX: E78.00 Pure hypercholesterolemia, unspecified (principal); E11.65 Type 2 diabetes mellitus with hyperglycemia
CPT/HCPCS: 36415; 80053; 80061; 82043; 82306; 82570; 82607; 82746; 83036; 84439; 84443; 85025

== ENCOUNTER 2025-08-07 08:23 | Outpatient (AMB) | payer MEDICARE, SELFPAY ==
--- OUTSIDE RECORDS SUMMARY | 2025-07-21 05:30 | XMS_ITS ---
Author Organization [facility] Address [address] [place] [phone] Care Team Providers Care Android Programmer Name Role Phone Shauna Rodriguez Primary Care Provider Pili Hoyt Unavailable [phone] Jagruti Salmeron Unavailable [phone] Medications Medication SIG (Take, Route, Fr equency, [...] Active Encounters Encounter Location Date Provider Diagnosis [address] [address] 07/21/2025 Jagruti Salmeron Plan Of Treatment Next Appt Details Provider Name:Pili boudreaux, 10/14/2025 02:00:00 PM, [address] [place] [address], [phone], Progress Notes * Samara MARLEY CDOB:[birth year] (75 yo F)Acc No.[id number]:07/21/2025 Progress Notes Patient: Prashanth ELIZALDE Samara Washington Provider: Paul Salmeron DPM :1950 A ge:75 Y S ex:Female Date:07/21/2025 Address: [id number] Pcp:Shauna Rodriguez Subjective: * Chief Complaints: * [...] 0 07/21/2025 Generated for Zelda kim/Isak/Krish on: 08:37 AM EDT
[2025-08-07 08:28] VITALS: BP 132/68; PULSE 72; TEMP 36.2; O2SAT 99; BMI 31.9
--- NOTE | 2025-08-07 08:28 | A.OFFPC_ITS ---
Vital Signs 08/07/25 08:28 Height 5 ft 1 in Weight 169 lb BMI 31.9 BP 132/68 Blood Pressure Location Lt brachial Position Sitting Pulse 72 Pulse Source Pulse Oximeter Temp 97.1 F Temp Source Temporal Artery Scan Pulse Oximetry (%) 99 Oxygen Delivery Method Room Air Intake Visit Reasons: dm Accompanied by: Brother Allergies No Known Allergies (No Known Allergies*) Allergy (Verified 08/07/25 08:32) Tobacco use date assessed: 08/07/25 Fall risk assessment: No Falls in past year Last assessed Fall Risk: 08/07/25 Dental Screening Dental Screen Date: 08/07/25 Did you have a dental visit in the last 12 months?: No Did you have a dental problem in the last 6 months where you did not have access to dental care?: No Was dental information given to patient?: No PFSH Medical History Impaired glucose tolerance Blood pressure elevated without history of HTN Cough Depression Breast cancer screening by mammogram Allergic rhinitis Chronic cough Breast density Finger pain, left Nasal bone fracture Barretts esophagus Hiatal hernia Urge incontinence Anxiety Hypercholesterolemia Hypothyroidism Obesity (BMI 30-39.9) Vitamin D deficiency Osteopenia Surgical History Hx of foot surgery History of bladder surgery Hx of cholecystectomy Family History Father No problems noted. Mother No problems noted. Paternal Grandmother Diabetes mellitus Social History Housing: Apartment Alcohol intake: never Patient Tobacco Use Status: Never used Tobacco Tobacco use type: Cigarette Years Smoked: quit 1982 e-Cigarette/Vaping Use: Never Used Second Hand Smoke Exposure: No service: No Current occupational status: disabled Cognitive needs: Yes Hearing needs: Yes (hearing aids) Vision needs: Yes (glasses ) Questionnaire PHQ-9 Over the last 2 weeks, how often have you been bothered by any of the following problems? 1. Little interest or pleasure in doing things: more than half the days 2. Feeling down, depressed, or hopeless: several days 3. Trouble falling or staying asleep, or sleeping too much: not at all 4. Feeling tired or having little energy: more than half the days 5. Poor appetite or overeating: not at all 6. Feeling bad about yourself - or that you are a failure or have let yourself or your family down: several days 7. Trouble concentrating on things, such as reading the newspaper or watching television: several days 8. Moving or speaking so slowly that other people could have noticed. Or the opposite - being so fidgety or restless that you have been moving around a lot more than usual: several days 9. Thoughts that you would be better off or of hurting yourself in some way: not at all Total score: 8 Depression Screening Interpretation: Positive Depression Screening Done: Yes Source: Developed by Drs. Mor Miller, Samara Stack, Newton Logan and colleagues, with an educational adriane from [employer]. Thrive Questionnaire Date Thrive assessed: 03/18/25 I am a: Patient What is your living situation today?: I have a steady place to live Within the past 12 months, did the food you bought not last and you didn't have the money to get more?: Never true Within the past 12 months, did you worry whether your food would run out before you got money to buy more?: Never true Do you have trouble paying for medicines?: No Do you have trouble getting transportation to medical appointments?: No Do you have trouble paying your heating and electricity bill?: No Do you have trouble taking care of your child, family member or friend?: No Do you have trouble with day-to-day activities such as bathing, preparing meals, shopping, managing finances, etc.?: No Are you currently unemployed and looking for a job?: Yes Are you interested in more education?: No Please select the resources that you would like help with: None Currently or been in a relationship where the following occur: No concerns reported THRIVE Score: 0 AUDIT C Alcohol Use Questionnaire (AUDIT-C) 1. How often do you have a drink containing alcohol?: Never 3. How often do you have six or more drinks on one occasion?: Never Total Score: 0 THUY-7 AMB Questionnaire THUY-7 Date THUY - 7 assessed: 04/11/25 Feeling nervous, anxious, or on edge: 1 = Several days Not being able to stop or control worryin = Several days Worrying too much about different things: 1 = Several days Trouble relaxin = Not at all Being so restless that it is hard to sit still: 1 = Several days Becoming easily annoyed or irritable: 0 = Not at all Feeling afraid as if something awful might happen: 0 = Not at all Total THUY-7 score (0-4 normal; 5-9 mild; 10-14 moderate; 15-21 severe): 4 Source: Developed by Drs. Mor Miller, Samara Stack, Newton Logan and colleagues, with an educational adriane from [employer]. Physical exam (Primary Care) Vital Signs: Last Vital Signs Temp 97.1 F 08/07/25 08:28 Pulse 72 08/07/25 08:28 BP 132/68 08/07/25 08:28 Pulse Ox 99 08/07/25 08:28 Oxygen Delivery Method Room Air 08/07/25 08:28 BMI result Body Mass Index 31.9 Tobacco/Smoking Status: Tobacco use Status Tobacco use date assessed 08/07/25 08/07/25 08:33 Patient Tobacco Use Status Never used Tobacco 08/07/25 08:33 Tobacco use type Cigarette 08/07/25 08:33 e-Cigarette/Vaping Use Never Used 08/07/25 08:33 PHQ-9: PHQ-9 Score PHQ-9: Total score 8 08/07/25 08:43 Depression Screening Interpretation: Positive Thrive Assessment: Date of Thrive Assessment Date Thrive assessed 03/18/25 08/07/25 08:33 Currently or been in a relationship where the following occur: No concerns reported Const General: alert; No acute distress Eyes Conjunctivae: conjunctivae normal Resp Auscultation: clear to auscultation bilaterally Cardio Rate: regular rate Rhythm: regular rhythm GI Inspection: Yes normal to inspection Extrem General: Yes normal to inspection and No edema Results AMB Hemoglobin A1c AMB Hemoglobin A1c 6.2 % Last Edit by Barbie Ramirez CMA on 08/07/25 08:37 Results Reviewed Results Reviewed: Laboratory Last Values Hgb A1c (Clinic) 6.2 % (4.0-6.0) H 08/07/25 08:33 Coding Level of Care Code Est Pt Level 4 (20350) Complex EM visit Add On G2211 Diagnoses Type 2 diabetes mellitus with hyperglycemia E11.65 Hypertension I10 Hypercholesterolemia E78.00 Acquired hypothyroidism E03.9 Hypothyroidism type: acquired Obesity (BMI 30-39.9) E66.9 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 K22.70 Pinto's esophagus type: without dysplasia Recurrent depression F33.9 Right calf pain M79.661 Assessment & Plan Assessment & Plan (1) Type 2 diabetes mellitus with hyperglycemia: Comment: [facility] Code(s): E11.65 - Type 2 diabetes mellitus with hyperglycemia Category: Medical Plan: Decrease the amount of carbohydrate intake, pasta, bread, rice and potatoes are all sugar and that is aside from all the sweet stuff, remember that fruits are good but they are Sweet also. Hemoglobin A1c goal of less than 7.0. Patient is controlled on metformin 500 mg twice a day (2) Hypertension: Code(s): I10 - Essential (primary) hypertension Category: Medical Plan: Continue with blood pressure medication. Decrease salt intake and exercise on losartan 25 mg once a day (3) Hypercholesterolemia: Code(s): E78.00 - Pure hypercholesterolemia, unspecified Category: Medical Plan: Avoid fried foods, chicken skin, eggs, butter margarine, pastries and meat. Be it pork or beef they have a lot of cholesterol LDL goal of less than 100 and triglyceride of less than 150 on atorvastatin 40 mg once a day (4) Hypothyroidism: Code(s): E03.9 - Hypothyroidism, unspecified Category: Medical Qualifiers: Hypothyroidism type: acquired Qualified Code(s): E03.9 - Hypothyro idism, unspecified Plan: Presently to continue with thyroid medication but patient does need to get blood work done. (5) Obesity (BMI 30-39.9): Code(s): E66.9 - Obesity, unspecified Category: Medical Plan: Diet and exercise (6) Barretts esophagus: Code(s): K22.70 - 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 Category: Medical Qualifiers: Pinto's esophagus type: without dysplasia Qualified Code(s): K22.70 - 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 Plan: Avoid the foods that causes that usually spicy foods, tomato products, juices, coffee, soda and foods that your sensitive to. After eating do not lie down, allow 3-4 hours before in lie down. And keep the head of bed above 30 degrees to avoid the acid from going up. Two thousand sixteen notes seen (7) Recurrent depression: Code(s): F33.9 - Major depressive disorder, recurrent, unspecified Category: Medical (8) Right calf pain: Code(s): M79.661 - Pain in right lower leg Category: Medical Plan History of Present Illness The patient is a 75-year-old female presenting for a follow-up visit. She has a history of obesity, with a recent weight gain of 6 pounds noted since her last visit. Her medical history includes diabetes mellitus, gastroesophageal reflux disease, hypercholesterolemia, hypothyroidism, and osteopenia, with the last bone density test conducted in December 2023. The patient reports a history of depression and hypertension, for which she is currently being followed up. She underwent an esophagogastroduodenoscopy (EGD) in 2015, which revealed multiple gastric polyps with mild chronic inflammation. A colonoscopy was also performed in 2015. The patient has been seen by an community health program coordinator and has been diagnosed with bilateral cataracts. Her blood work in April 2025 showed normal blood count, electrolytes, and renal function, with a creatinine level of 0.76 mg/dL. Her hemoglobin A1c is currently 6.2%, and her LDL cholesterol is 50 mg/dL. The patient has an elevated vitamin B12 level over 2000 pg/mL and a low thyroid level, prompting a repeat thyroid test. Health Maintenance - Thyroid function monitoring: Repeat thyroid test advised due to low thyroid levels - Vaccinations: Discussion about flu, COVID-19, and shingles vaccinations Social History - Exercise: Patient engages in exercise at the [facility] Review of Systems - Musculoskeletal: Reports pain in the right calf, exacerbated by stretching - Endocrine: Denies symptoms of hyperglycemia, reports stable blood sugar levels Physical Exam - Musculoskeletal: Right calf examined, no swelling noted, pulse palpable Results - Labs: Normal blood count, electrolytes, and renal function in April 2025; creatinine 0.76 mg/dL, hemoglobin A1c 6.2%, LDL cholesterol 50 mg/dL - Labs: Elevated vitamin B12 level over 2000 pg/mL, low thyroid level - Procedures: EGD in 2015 showing multiple gastric polyps with mild chronic inflammation - Procedures: Colonoscopy in 2016 Plan Patient was informed and verbally consented to the use of an ambient scribe for clinic note documentation during this visit. 1. Diabetes Mellitus The patient's diabetes mellitus is currently managed with metformin 500 mg twice daily, with a target hemoglobin A1c of less than 7.0%. Her current hemoglobin A1c is 6.2%, indicating good glycemic control. 2. Hypertension The patient's hypertension is managed with losartan 25 mg once daily. Her blood pressure is reported to be well-controlled. 3. Hypercholesterolemia The patient's hypercholesterolemia is managed with atorvastatin 40 mg once daily, with an LDL cholesterol goal of less than 100 mg/dL. Her current LDL cholesterol is 50 mg/dL, indicating effective lipid management. 4. Hypothyroidism The patient is advised to continue her current thyroid medication and repeat thyroid function tests due to low thyroid levels. 5. Musculoskeletal Pain The patient reports pain in the right calf, exacerbated by stretching. A muscle relaxant is prescribed for nighttime use to alleviate symptoms. Discussion Notes During the visit, we discussed the management of the patient's diabetes, hypertension, and hypercholesterolemia, emphasizing the importance of medication adherence and lifestyle modifications. We also reviewed the need for thyroid function monitoring and the potential side effects of muscle relaxants for her calf pain. Vaccination options, including flu, COVID-19, and shingles vaccines, were discussed, highlighting their importance in preventing illness. Patient Instructions - Continue taking metformin, losartan, atorvastatin, and thyroid medication as prescribed. - Schedule a repeat thyroid test at the lab without fasting. - Use muscle relaxant at night for calf pain, avoid using with cough medication. - Consider getting flu, COVID-19, and shingles vaccines at the pharmacy. - Maintain regular exercise at the [facility]. Orders: Orders AMB Hemoglobin A1c Today Z13.9 - Encounter for screening, unspecified Referrals Podiatry Referral E11.65 - Type 2 diabetes mellitus with hyperglycemia Medications: New tizanidine 2 mg PO Q8H PRN 20 tabs 0RF muscle spasticity M79.661 - Pain in right lower leg
--- OUTSIDE RECORDS SUMMARY | 2025-08-07 08:38 | XMS_ITS | Patient Health Record ---
Author Organization [facility] [place] Address [address] [place] [address] Care Team Providers Care Outpatient Services Director Name Role Phone Shauna Rodriguez Primary Care Provider Pili Hoyt Unavailable [phone] Jagruti Salmeron Unavailable [phone] Abhilash Werner Unavailable [phone] Reason For Referral Diagnosis 1 Pain in unspecified foot (M79.673) Referring Provider First Name Shauna [facility]erring Provider [facility] Jagruti Salmeron Referred Address [address] [place], [place],[address], Referred Provider Specialty Podiatry Referral Priority Routine Medications Medication SIG (Take, Route, Fr equency, Duration) Notes Start Date End Date Status Levothyroxine Sodium Active Enablex 7.5 MG 1 tablet with liquid Orally Once a day; Duration: 30 day(s) Active Zocor 40 mg Active Omeprazole 20 mg once a day Ac tive Vitamin D3 2000 units 1 capsule Orally O nce a day; Duration: 30 day(s) Active Problems Problem Type SNOMED Code ICD Code Onset Dates Problem Status W/U Status Risk Notes Problem Contusion of toe (67067182) Contusion of toe (924.3) Active confirmed Encounters En[facility] [address] [facility] Abhilash Werner [address] [address] 08/04/2025 Pili Hunter Plan Of Treatment Pending Test Test Name Order Date X ray : Foot, right 3V 10/10/2012 Next Appt Details Provider Name:Pili Boudreaux Halima boudreaux, 10/14/2025 02:00:00 PM, [address] [facility], [place], [address], Insurance Providers Payer Name Payer Address Payer Phone Subscriber Number Group Number Insured Name Patient Relationship to Insured Coverage Start Date Coverage End Date [employer] 65 Medicare Preferred [address] [place] [address] [phone] [id number] Samara Marley Self - patient is the insured [facility] 65 Medicare Preferred [address] [place] [address] [phone] [id number] Samara Marley Self - patient is the insured Medical (General) History Medical History History ICD Code thyroid disorder reflux gall bladder problems chicken pox back, hip, knee pain cholesterol Surgical History Surgery Date(Month/Year) cholecystectomy foot surgery 2002
--- OUTSIDE RECORDS SUMMARY | 2025-08-07 08:38 | XMS_ITS | Patient Health Record ---
Author Organization [facility] Address [address] [place] [address] Care Team Providers Care Emergency Department Manager Name Role Phone Mor Roy Unavailable [phone] Reason For Referral No Information Plan Of Treatment No Information
== END 2025-08-07 08:56 | disposition home or self-care (01) ==
LOC: HO.HMCH 08:24
PROVIDERS: PCP Internal Medicine; Visit Provider Internal Medicine
DX: E11.65 Type 2 diabetes mellitus with hyperglycemia (principal); I10 Essential (primary) hypertension; E66.9 Obesity, unspecified; Z68.31 Body mass index [BMI] 31.0-31.9, adult; E78.00 Pure hypercholesterolemia, unspecified; E03.9 Hypothyroidism, unspecified; K22.70 Barrett's esophagus without dysplasia; F33.9 Major depressive disorder, recurrent, unspecified; M79.661 Pain in right lower leg

== ENCOUNTER → 2025-08-07 08:23 | Outpatient (BNVA) | payer MEDICARE, SELFPAY | PROVIDERS: PCP Internal Medicine; Visit Provider Internal Medicine | DX: E11.65 Type 2 diabetes mellitus with hyperglycemia (principal); I10 Essential (primary) hypertension; E78.00 Pure hypercholesterolemia, unspecified; E03.9 Hypothyroidism, unspecified; E66.9 Obesity, unspecified; K22.70 Barrett's esophagus without dysplasia; F33.9 Major depressive disorder, recurrent, unspecified; M79.661 Pain in right lower leg; K21.9 Gastro-esophageal reflux disease without esophagitis; M85.80 Other specified disorders of bone density and structure, unspecified site | CPT/HCPCS: 83036; 96127; 99212 ==

== ENCOUNTER 2025-09-08 09:57 | Outpatient (AMB) | payer MEDICARE, SELFPAY ==
--- OUTSIDE RECORDS SUMMARY | 2025-07-21 04:30 | XMS_ITS ---
Author Organization [facility] Address [address] [place] [id number] Care Team Providers Care Car Dumper Operator Helper Name Role Phone Shauna Rodriguez Primary Care Provider Pili Hoyt Unavailable [phone] Jagruti Salmeron Unavailable [phone] Medications Medication SIG (Take, Route, Fr equency, Duration) Notes Start Date End Date Status Levothyroxine Sodium Active Enablex 7.5 MG 1 tablet with liquid Orally Once a day; Duration: 30 day(s) Active Zocor 40 mg Active Omeprazole 20 mg once a day Ac tive Vitamin D3 2000 units 1 capsule Orally O nce a day; Duration: 30 day(s) Active Encounters Encounter Location Date Provider Diagnosis [address] [address] 07/21/2025 Jagruti Salmeron Plan Of Treatment Next Appt Details Provider Name:Pili boudreaux, 10/14/2025 02:00:00 PM, [address] [place] [address], [phone], Progress Notes * Samara MARLEY CDOB:[birth year] (75 yo F)Acc No.[id number]:07/21/2025 Progress Notes Patient: Prashanth ELIZALDE Samara Washington Provider: Paul Salmeron DPM :1950 A ge:75 Y S ex:Female Date:07/21/2025 Address: [id number] Pcp:Shauna Rodriguez Subjective: * Chief Complaints: * * Medical History: * Medications: T aking Enablex 7.5 MG Tablet Extended Release 24 Hour 1 tablet with liquid Orally Once a day , Taking Levothyroxine Sodium , Taking Omeprazole 20 mg once a day , Taking Zocor 40 mg , Taking Vitamin D3 2000 units Capsule 1 capsule Orally Once a day Objective: * Vitals: Assessment: Plan: * Treatment: * Images: * The named appointment provid er may or may not be the originator of this progress note, and it is not deemed complete until electronically signed by the appointment provider. Sign off status: Pending * Provider: Paul Salmeron DPM Date: 0 07/21/2025 Generated for Zelda kim/Isak/Krish on: 11/08/2024 11:45 AM EST
[2025-09-08 10:06] VITALS: BP 140/70; PULSE 70; O2SAT 98; BMI 33.1
--- NOTE | 2025-09-08 10:06 | A.OFFVIS_ITS ---
Vital Signs 09/08/25 10:06 Height 5 ft 1 in Weight 175 lb 4.28 oz BMI 33.1 BP 140/70 H Blood Pressure Location Lt brachial Position Sitting Pulse 70 Pulse Source Pulse Oximeter Pulse Oximetry (%) 98 Oxygen Delivery Method Room Air Intake Visit Reasons: dyspnea Intake Note: pt is here for follow up and states her breathing is good, just headaches at times. Nursing Clinical Director Required: No Lime Mixer: Lime Mixer offered & declined Allergies No Known Allergies (No Known Allergies*) Allergy (Verified 09/08/25 10:28) Medication List - Last Reconciled 09/08/25 by Cassandra De Anda MD albuterol sulfate 90 mcg/actuation 2 puffs inhalation Q4-6H PRN 30 days alprazolam 0.25 mg PO DAILY PRN 90 days atorvastatin 40 mg PO DAILY blood sugar diagnostic ([employer] EnterprisesTouch Ultra Test strips) tests 3X/day calcium carbonate-vitamin D3 600 mg-5 mcg (200 unit) 1 tab PO DAILY cholecalciferol (vitamin D3) 50 mcg PO DAILY codeine-guaifenesin 10-100 mg/5 mL 10 mL PO Q4-6H PRN fexofenadine (Allergy Relief (fexofenadine)) 180 mg PO DAILY lancets As directed lancets ([employer] Delica Lancets) Test blood sugar twice a day levothyroxine 112 mcg PO QAM losartan 25 mg PO DAILY 30 days meloxicam 15 mg PO DAILY metformin 500 mg PO BID omeprazole 20 mg PO DAILY OneTouch Ultra Blue Test Strip (blood sugar diagnostic) once a day NS tizanidine 2 mg PO Q8H PRN Do you need a note to return to daycare/school/sports/work: No HPI HPI dyspnea: Details: This 75 years old female is here for 6 months follow-up. Her main issue is nasal congestion with postnasal drip. Which flares up off and on. And in addition since she has ongoing chronic cough which is worse at night. She has used [id number] cough medications. Without much improvement. What helps her is guaifenesin with codeine, syrup that she uses 2 tsp at nighttime. She denies any wheezing or shortness of breath. She carries a big bag of bottles, containing her meds for diabetes mellitus hypertension anxiety/depression. Arthritis, nonspecific dizziness and GERD symptoms . She does not need to use any bronchodilator inhaler. [facility] Medical History Impaired glucose tolerance Blood pressure elevated without history of HTN Cough Depression Breast cancer screening by mammogram Allergic rhinitis Chronic cough Breast density Finger pain, left Nasal bone fracture Barretts esophagus Hiatal hernia Urge incontinence Anxiety Hypercholesterolemia Hypothyroidism Obesity (BMI 30-39.9) Vitamin D deficiency Osteopenia Surgical History Hx of foot surgery History of bladder surgery Hx of cholecystectomy Family History Father No problems noted. Mother No problems noted. Paternal Grandmother Diabetes mellitus Social History Housing: Apartment Alcohol intake: never Patient Tobacco Use Status: Never used Tobacco Tobacco use type: Cigarette Years Smoked: 1982 e-Cigarette/Vaping Use: Never Used Second Hand Smoke Exposure: No service: No Current occupational status: disabled Cognitive needs: Yes Hearing needs: Yes (hearing aids) Vision needs: Yes (glasses ) Review of Systems Const All systems reviewed & are unremarkable except as noted in HPI and below Eyes Reports no additional complaints ENT Reports nasal congestion and Reports nasal discharge (Mild off and) Card Denies chest pain, Denies irregular heart rhythm and Denies lightheadedness Resp Reports as per HPI GI Reports heartburn (Controlled) Reports no additional complaints Musc Reports no additional complaints Skin/Breast Reports system reviewed and no additional complaints, except as documented Neuro Reports no additional complaints Psych Reports anxiety (Mild) Endo Reports other (Diabetes mellitus) Aller/Immun Reports no additional complaints Physical Exam Vital Signs: Last Vital Signs Pulse 70 09/08/25 10:06 BP 140/70 H 09/08/25 10:06 Pulse Ox 98 09/08/25 10:06 Oxygen Delivery Method Room Air 09/08/25 10:06 BMI result Body Mass Index 33.1 Const General: comfortable, no acute distress, alert and awake Orientation/consciousness: patient oriented x3 HEENT Head: Yes normal to inspection General nose exam: No nasal polyps present, No nasal discharge present and Other nasal findings present (Mild bilateral nasal congestion) Face and sinus: Yes sinuses nontender Mouth: oropharynx normal Throat: Yes posterior oropharynx normal Eyes General: appearance normal, both eyes and all related structures Neck Neck: Yes normal visual inspection, Yes no lymphadenopathy, Yes trachea midline and Yes no JVD Thyroid: Thyroid normal Chest Chest palpation & inspection: normal inspection of the chest, normal palpation of entire chest wall and no tenderness Resp Effort & Inspection: normal respiratory effort Auscultation: clear to auscultation bilaterally, no crackles, no rales and no wheezes Cardio Palpation: normal PMI Rate: regular rate Rhythm: regular rhythm Heart sounds: no gallops and no murmurs Peripheral pulses: Peripheral pulses 2+ throughout GI Palpation (GI): Soft to palpation, nontender, No hepatosplenomegaly present and no masses Auscultation: normal bowel sounds Back/Spine/Pelvis Thoracic/Lumbar Spine: thoracic and lumbar spine normal to inspection Skin General skin exam: no rashes or lesions noted Neuro General: patient oriented x3 and no focal motor deficits Cranial nerves: Yes CN's II-XII intact bilaterally Extrem General: Yes normal to inspection, Yes no clubbing, cyanosis or edema and Yes no calf tenderness Psych Appearance: grossly normal and well kempt Speech and movement: Normal speech and movement present Assessment & Plan Assessment & Plan (1) Allergic rhinitis: Comment: [place] : HAS LONGSTANDING HISTORY OF HER RECURRENT NASAL CONGESTION AND POSTNASAL DRIP, SECONDARY TO ALLERGIC RHINITIS. IT FLARES UP IN CERTAIN SEASONS. CURRENTLY SEEMS TO BE WELL CO NTROLLED, AND NOT ACTIVE. Code(s): J30.9 - Allergic rhinitis, unspecified Category: Medical Plan: USE FEXOFENADINE 180 MG ONCE A DAY P.R.N. SHE DOES NOT LIKE TO USE NASAL SPRAY. (2) Cough: Comment: Chronic cough which flares up with the upper airways allergy problem, especially nasal congestion and postnasal drip. Seems to be related to chronic allergic rhinitis, Her cough is worse especially at night. Using DayQuil and NyQuil syrup does not control her cough. She is not using fexofenadine regularly and also has stopped using the montelukast. Code(s): R05 - Cough Category: Medical Plan: OK TO USE FEXOFENADINE 180 MG ONCE A DAY BUT ONLY P.R.N. MAY ALSO USE VENTOLIN 1 OR 2 PUFFS Q 6 HOURS P.R.N. FOR SUSTAINED BOUTS OF COUGH, USE NIGHT QUILL 2 TSP AT BEDTIME FOR COUGH, USE GUAIFENESIN-CODEINE SYRUP ONLY IF THE COUGH IS NOT CONTROLLED WITH OTHER MEDS. Coding Level of Care Code Est Pt Level 3 (46178) Diagnoses Allergic rhinitis J30.9 Cough R05
--- OUTSIDE RECORDS SUMMARY | 2025-09-08 11:46 | XMS_ITS | Patient Health Record ---
Author Organization [facility] [place] Address [address] [place] [address] Care Team Providers Care Senior Landscape Architect Name Role Phone Shauna Rodriguez Primary Care Provider Pili Hoyt Unavailable [phone] Jagruti Salmeron Unavailable [phone] Abhilash Werner Unavailable [phone] Reason For Referral Diagnosis 1 Pain in unspecified foot (M79.673) Referring Provider First Name Shauna Referring Provider [facility] Jagruti Salmeron Referred Address [address] [place], [place],[address], Referred Provider Specialty Podiatry Referral Priority Routine [...] Status Risk Notes Problem Contusion of toe (08789168) Contusion of toe (924.3) Active confirmed Encounters En[facility] [address] [facility] Abhilash Werner [address] [address] 08/04/2025 Pili Hunter Plan Of Treatment Pending Test Test Name Order Date X ray : Foot, right 3V 10/10/2012 Next Appt Details Provider Name:Pili Boudreaux Halima boudreaux, 10/14/2025 02:00:00 PM, [address] [facility], [place], [address], Insurance Providers Payer Name Payer Address Payer Phone Subscriber Number Group Number Insured Name Patient Relationship to Insured Coverage Start Date Coverage End Date [employer] 65 Medicare Preferred [address] [place] [address] [phone] [id number] Samara Marley Self - patient is the insured [facility] 65 Medicare Preferred [address] [place] [address] [phone] [id number] Samara Marley Self - patient is the insured Medical (General) History Medical History History ICD Code thyroid disorder reflux gall bladder problems chicken pox back, hip, knee pain cholesterol Surgical History Surgery Date(Month/Year) cholecystectomy foot surgery 2002
--- OUTSIDE RECORDS SUMMARY | 2025-09-08 11:46 | XMS_ITS | Patient Health Record ---
Author Organization [facility] Address [address] [place] [address] Care Team Providers Care Flight Engineer Name Role Phone Mor Roy Unavailable [phone] Reason For Referral No Information Plan Of Treatment No Information
== END 2025-09-08 10:28 | disposition home or self-care (01) ==
LOC: HO.HPS 09:58
PROVIDERS: PCP Internal Medicine; Visit Provider Internal Medicine
DX: J30.9 Allergic rhinitis, unspecified (principal); R05.9 Cough, unspecified
CPT/HCPCS: 99213

== ENCOUNTER → 2025-09-08 09:57 | Outpatient (BNVA) | payer MEDICARE, SELFPAY | PROVIDERS: PCP Internal Medicine; Visit Provider Internal Medicine | DX: J30.9 Allergic rhinitis, unspecified (principal); R05.9 Cough, unspecified | CPT/HCPCS: 99212 ==